=== PATIENT | male | born 1945 | race Caucasian/White ===

== ENCOUNTER 2016-10-17 05:55 | Inpatient (IN) | payer MEDICARE, OTHER ==
[~2016-10-17] VITALS: Ht 177.8 cm; Wt 175.5 kg
[~2016-10-17 05:55] MED LIST: ACET325T53 PO; ALLA266C2 TP; AMIO200T PO; AMLO10TA2 PO; ASCO500T9 PO; ATOR10TA PO; Blood Sugar Diagnostic VI; DEXT50DI8 IV; DIPH25CA49 PO; Doxycycline Hyclate PO; GABA400C PO; GLIM4TAB PO; Gel Dressing TP; HYDR-3326 PO; HYDR28.32 TP; Hydralazine Hcl PO; INSU100V28 SQ; LACT1CAP72 PO; MAG30ORA PO; MULT-24 PO; Nitroglycerin TP; Ondansetron Hcl/Pf IV; PANT40TA2 PO; RIVA10TA PO; Valsartan PO
[2016-10-17] MEDS ORDERED: FUROSEMIDE 40 MG/4 ML VIAL IV ONE (06:00)
[2016-10-17] MEDS ORDERED: NITROGLYCERIN PACKET 1 GM PACKET TD ONE (06:00)
[2016-10-17] MEDS ORDERED: FUROSEMIDE 40 MG/4 ML VIAL ONE (06:05)
[2016-10-17] MEDS ORDERED: NITROGLYCERIN PACKET 1 GM PACKET ONE (06:06)
--- NOTE | 2016-10-17 06:20 | NUR ---
RETIREMENT ACTUARY IS AT THE BEDSIDE FOR BLOOD DRAW.
[2016-10-17] MEDS ORDERED: SITA50TA PO (06:25)
[2016-10-17] MEDS ORDERED: INSU100V7 SQ (06:25)
[2016-10-17] MEDS ORDERED: MULT-1168 PO (06:25)
[2016-10-17] MEDS ORDERED: GUAI-959 PO (06:25)
[2016-10-17] MEDS ORDERED: NA P133E RC (06:25)
[2016-10-17] MEDS ORDERED: WHEA1POW6 PO (06:25)
[2016-10-17] MEDS ORDERED: FERR-58 PO (06:25)
[2016-10-17] MEDS ORDERED: ARGI1POW13 PO (06:25)
[2016-10-17] MEDS ORDERED: IBUP-1481 PO (06:25)
[2016-10-17] MEDS ORDERED: ONDA-25 PO (06:25)
[2016-10-17] MEDS ORDERED: ZINC220C8 PO (06:25)
[2016-10-17] MEDS ORDERED: BISA10SU8 RC (06:25)
[2016-10-17] MEDS ORDERED: HYDR8TAB18 PO (06:25)
--- NOTE | 2016-10-17 06:25 | NUR ---
20G IV STARTED IN RUE.
--- NOTE | 2016-10-17 06:25 | NUR ---
CXR IN PROGRESS AT THE BEDSIDE.
--- NOTE | 2016-10-17 07:01 | NUR ---
BOX CAR LOADER IS AT THE BEDSIDE FOR DRAW. 1ST ATTEMPT WAS UNSUCCESSFUL.
--- NOTE | 2016-10-17 07:10 | NUR ---
REPORT GIVEN TO ANGEL ROCK FOR RONAN.
[2016-10-17 07:23] LABS: BASOPHILS # (AUTO) 0.1 /CMM (0.0-0.2); BASOPHILS % (AUTO) 0.9 % (0.0-2.0); EOSINOPHILS # (AUTO) 0.6 /CMM (0.0-0.7); EOSINOPHILS % (AUTO) 4.6 % (0.0-6.0); HEMATOCRIT 27 % (39-51); HEMOGLOBIN 8.2 g/dL (13.5-17.5); LYMPHOCYTES # (AUTO) 0.9 /CMM (0.8-4.8); LYMPHOCYTES % (AUTO) 6.7 % (20.0-44.0); MEAN CORPUSCULAR HEMOGLOBIN 24 PG (26.0-33.0); MEAN CORPUSCULAR HGB CONC 31 g/dl (31.0-36.0); MEAN CORPUSCULAR VOLUME 79 fL (80-96); MONOCYTES # (AUTO) 0.7 /CMM (0.1-1.30); NEUTROPHILS # (AUTO) 11.6 /CMM (1.8-8.9); NEUTROPHILS % (AUTO) 82.8 % (43.0-81.0); PLATELET COUNT (AUTO) 329 /CMM (150-450); RDW COEFFICIENT OF VARIATION 18.8 (11.5-15.0); RED BLOOD CELL COUNT(AUTO) 3.43 MIL/uL (4.5-6.0)
--- NOTE | 2016-10-17 07:24 | NUR ---
PATIENT ON BED, ASLEEP. VSS
[2016-10-17 07:34] LABS: CALCIUM, SERUM 8.3 mg/dL (8.5-10.1); CARBON DIOXIDE 26 mmol/L (21-32); CHLORIDE 105 mmol/L (98-107); CREATININE 2.4 mg/dL (0.6-1.3); GFR 27 mL/min (>60); GLUCOSE 204 mg/dL (74-106); POTASSIUM 5.1 mmol/L (3.5-5.1); SODIUM SERUM 140 mmol/L (136-145); UREA NITROGEN, BLOOD 36 mg/dL (7-18)
[2016-10-17 07:36] LABS: INR 1.24 (0.87-1.13); PROTHROMBIN TIME 13.4 SECS (9.5-12.7)
--- NOTE | 2016-10-17 07:37 | NUR ---
PAGED DR MACHADO FOR ADMISSION
[2016-10-17 07:41] LABS: TROPONIN I < 0.017 ng/mL (0.00-0.056)
[2016-10-17 07:45] LABS: LACTIC ACID 0.9 mmol/L (0.4-2.0)
[2016-10-17 07:46] LABS: ALANINE AMINOTRANSFERASE 18 U/L (12-78); ALBUMIN 2.4 g/dL (3.4-5.0); ALKALINE PHOSPHATASE 86 U/L (46-116); ASPARTATE AMINOTRANSFERASE 20 U/L (15-37); B-TYPE NATRIURETIC PEPTIDE 2182 PG/ML (0-125); BILIRUBIN,DIRECT 0.2 mg/dL (0.0-0.2); BILIRUBIN,TOTAL 0.4 mg/dL (0.2-1.0); TOTAL PROTEIN, SERUM 7.4 g/dL (6.4-8.2)
[2016-10-17] MEDS ORDERED: VALS80TA2 PO (07:52)
[2016-10-17] MEDS ORDERED: ASCO500T9 PO (07:52)
[2016-10-17] MEDS ORDERED: ACET-868 PO ×2 (07:52)
[2016-10-17] MEDS ORDERED: RIVA10TA PO (07:52)
[2016-10-17] MEDS ORDERED: GLIM4TAB2 PO (07:52)
[2016-10-17] MEDS ORDERED: HYDR-4076 PO (07:52)
[2016-10-17] MEDS ORDERED: ATOR10TA PO (07:52)
[2016-10-17] MEDS ORDERED: MAGN400O6 PO (07:52)
[2016-10-17] MEDS ORDERED: BLOO-697 IN (07:52)
[2016-10-17] MEDS ORDERED: INSU100V3 SQ (07:52)
[2016-10-17] MEDS ORDERED: AMIO200T2 PO (07:52)
[2016-10-17] MEDS ORDERED: NITR1OIN2 TD (07:52)
[2016-10-17] MEDS ORDERED: AMLO10TA2 PO (07:52)
[2016-10-17] MEDS ORDERED: PANT40TA4 PO (07:52)
[2016-10-17] MEDS ORDERED: GABA-536 PO (07:52)
--- NOTE | 2016-10-17 07:57 | NUR ---
KESHA CALLED -- ITS DERDERIAN
--- NOTE | 2016-10-17 08:45 | NUR ---
SCRUM PROJECT MANAGERCRIMINAL ATTORNEY NOTE PATIENT ADMITTED FROM EMERGENCY ROOM. REPORT RECEIVED BY ANGEL HORVATH. PATIENT IS ALERT AND ORIENTED x2-3. PERIODS OF CONFUSION. RIGHT UPPER ARM IV INTACT AND PATENT. NO REDNESS OR SWELLING NOTED. ARRIVED ON FLOOR IN [facility]. ON OXYGEN VIA NASAL CANNULA AT 4L/MIN. NO PAIN AT THIS TIME. NO SHORTNESS OF BREATH PER PATIENT NO DISTRESS NOTED. CALL LIGHT WITHIN REACH AT ALL TIMES. SAFETY MEASURES IMPLEMENTED. PATIENT CAME FROM [facility]. WILL CONTINUE TO MONITOR
[2016-10-17 09:00] VITALS: BP 114/41
[2016-10-17] MEDS ORDERED: ACETAMINOPHEN 325 MG TABLET PO PRN (11:00)
[2016-10-17] MEDS ORDERED: Z GUARD REMEDY 2 OZ OINT TP PRN (11:00)
[2016-10-17] MEDS ORDERED: LEVOFLOXACIN 750 MG /D5W 150ML 750 MG in PREMIX 1 EA IV SCH ×3 (11:00→15:00)
[2016-10-17] MEDS ORDERED: NITROGLYCERIN PACKET 1 GM PACKET TD SCH (11:00)
[2016-10-17] MEDS ORDERED: Medication Not On Formulary EA (Arginine/Ascorbate Sod/Vite AC (Arginaid Powder) 1 EACH) PO SCH (11:00)
[2016-10-17] MEDS ORDERED: SITAGLIPTIN PHOSPHATE 50 MG TABLET PO SCH (11:00)
[2016-10-17] MEDS ORDERED: IBUPROFEN 400 MG TABLET PO PRN (11:00)
[2016-10-17] MEDS ORDERED: ONDANSETRON HCL/PF 4 MG/2 ML VIAL IVP PRN (11:00)
[2016-10-17] MEDS ORDERED: MAG HYDROX/AL HYDROX/SIMETH 30 ML UDC PO PRN (11:00)
[2016-10-17] MEDS ORDERED: BISACODYL SUPP (10 MG) 10 MG/SUPP.RECT SUPP.RECT RC PRN (11:00)
[2016-10-17] MEDS ORDERED: MAGNESIUM HYDROXIDE 30 ML UDC PO PRN (11:00)
--- NOTE | 2016-10-17 11:20 | NUR ---
MS RN NOTE SOME MEDICATIONS NOT AVAILABLE IN [facility] OR IN CASSETTE. PHARMACY MADE AWARE. AWAITING MEDICATION.
[2016-10-17] MEDS: BLOOD SUGAR DIAGNOSTIC 1 EACH STRIP IN SCH ×2 (11:30→17:57)
[2016-10-17] MEDS ORDERED: HYDROMORPHONE HCL 2 MG TABLET PO PRN (11:30)
[2016-10-17] MEDS ORDERED: ONDANSETRON 4 MG TAB.RAPDIS PO PRN (11:30)
[2016-10-17] MEDS: ASCORBIC ACID 500 MG TABLET PO SCH (11:43)
[2016-10-17] MEDS: FERROUS SULFATE (325 MG) 325 MG/TAB TABLET PO SCH (11:43)
[2016-10-17] MEDS: GABAPENTIN 400 MG CAPSULE PO SCH (11:43)
[2016-10-17] MEDS: GLIMEPIRIDE 4 MG TABLET PO SCH (11:44)
[2016-10-17] MEDS: AMLODIPINE BESYLATE 10 MG TABLET PO SCH (11:45)
[2016-10-17] MEDS: VALSARTAN 80 MG TABLET PO SCH (11:45)
[2016-10-17] MEDS: ZINC SULFATE 220 MG CAPSULE PO SCH (11:45)
[2016-10-17] MEDS: AMIODARONE HCL 200 MG TABLET PO SCH (11:46)
[2016-10-17] MEDS ORDERED: FEE PK DOSING 1 MIN EA MC ONE (12:14)
[2016-10-17] MEDS ORDERED: hydrALAZINE HCL 25 MG TABLET PO PRN (13:00)
--- NOTE | 2016-10-17 13:00 | NUR ---
MASH PROCESSING OPERATOR NOTE RECEIVED ABG RESULTS. CALLED MD BLUM) FOR RESULTS. LUIS FROM RESPIRATORY INFORMED DR. SNOW ABOUT PATIENT AND RESULTS. TITRATED OXYGEN DOWN TO 2L/MIN VIA NASAL CANNULA. WILL CONTINUE TO MONITOR PATIENT.
[2016-10-17 13:02] LABS: ABG BASE EXCESS -2.4 mmol/L; ABG OXYGEN SATURATION 94.4 % (92.0-98.5); ABG PCO2 60.8 mmHg (35.0-45.0); ABG PH 7.237 (7.350-7.450); ABG PO2 77.6 mmHg (75.0-100.0); ABG TOTAL HEMOGLOBIN 8.7 G/dL (13.5-18.0); AaDO2 108.6 mmHg; COHb 1.4 % (0.5-1.5); MetHb 0.9 % (0.0-1.5); O2Hb 92.2 % (94.0-97.0); SITE, ABG Right Radial; VENT MODE, BG NASAL CANNULA
--- NOTE | 2016-10-17 13:30 | NUR ---
PLAN EXAMINER NOTE PATIENT IS NOW ON STRICT INTAKE AND OUTPUT. WILL CONTINUE TO MONITOR AND ENDORSE TO GENETICS PHYSICIAN FOR RONAN
[2016-10-17] MEDS ORDERED: IV NS 0.9% 250 ML IV ONE (14:06)
[2016-10-17] MEDS ORDERED: SECONDARY IV SET 1 EA INFUS.SET MC ONE ×2 (14:06→16:15)
[2016-10-17] MEDS ORDERED: IV SET PRIMARY PUMP SET 1 EA INFUS.SET MC ONE (14:06)
[2016-10-17] MEDS: VANCOMYCIN 0.75 GM in IV D5W 250 ML IV SCH (14:21)
[2016-10-17] MEDS: BUMETANIDE INJ 0.25 MG/ML VIAL IV SCH ×2 (14:40→22:01)
[2016-10-17] MEDS: IPRATROPIUM NEB FS 0.5 MG/2.5 ML AMPUL.NEB NEB SCH ×2 (15:12→20:17)
[2016-10-17] MEDS: ALBUTEROL HALF STRENGTH 1.25 MG/3 ML VIAL.NEB NEB SCH ×2 (15:12→20:17)
[2016-10-17 15:32] LABS: ABG BASE EXCESS -3.2 mmol/L; ABG OXYGEN SATURATION 96.6 % (92.0-98.5); ABG PCO2 38.9 mmHg (35.0-45.0); ABG PH 7.367 (7.350-7.450); ABG PO2 88.6 mmHg (75.0-100.0); ABG TOTAL HEMOGLOBIN 8.3 G/dL (13.5-18.0); AaDO2 65.1 mmHg; COHb 1.2 % (0.5-1.5); MetHb 0.8 % (0.0-1.5); O2Hb 94.7 % (94.0-97.0); SITE, ABG Right Femoral; VENT MODE, BG NASAL CANNULA
[2016-10-17] MEDS: LEVOFLOXACIN 750 MG /D5W 150ML 750 MG in PREMIX 1 EA IV SCH (16:47)
[2016-10-17] MEDS: RIVAROXABAN 10 MG TABLET PO SCH (16:48)
[2016-10-17] MEDS: LACTOBACILLUS RHAMNOSUS GG 1 EACH CAP.SPRINK PO SCH (16:49)
[2016-10-17] MEDS: BENEFIBER 4 GM 1 EA PACKET PO SCH ×2 (16:50→16:53)
[2016-10-17] MEDS: NITROGLYCERIN 30 GM TUBE TP SCH (16:50)
[2016-10-17] MEDS: diphenhydrAMINE HCL 25 MG CAPSULE PO PRN (18:40)
--- NOTE | 2016-10-17 18:56 | NUR ---
CONTRACTS SPECIALIST CLOSING NOTE PATIENT IS AWAKE IN BED LOCKED IN LOWEST POSITION WITH SIDERAILS UP x2. NO PAIN AT THIS TIME. NO SOB, CHEST PAIN OR DISCOMFORT NOTED. ALL DUE MEDICATIONS GIVEN ORDERED. ALL NURSING CARE NEEDS ATTENDED TO. SAFETY MEASURES IMPLEMENTED AT ALL TIMES. CALL LIGHT WITHIN REACH AT ALL TIMES. IV REMOVED FROM RIGHT UPPER ARM DUE TO SWELLING AND INFILTRATION AND IRRITATION FROM ALLERGY TO PLASTIC TAPE. ALLERGY DOCUMENTED. MIDLINE INSERTION ORDER INPUT. ON OXYGEN VIA NASAL CANNULA 2L/MIN. TELE MONITOR-A FIB WITH HEART RATE AT 72. WILL ENDORSE TO CULTURE MEDIA LABORATORY ASSISTANT NURSE FOR RONAN Addendum: 10/17/16 at 1903 by ARLET MOSS RN ON STRICT INTAKE AND OUTPUT MONITORING
--- NOTE | 2016-10-17 19:15 | NUR ---
RN INITIAL NOTES RECEIVED PATIENT IN BED, AWAKE AND ALERT. PATIENT DENIES ANY PAIN AND DISCOMFORT AT THIS TIME. PATIENT WITH NO ACUTE RESPIRATORY DISTRESS. ON 2LPM OF O2 VIA NC, RESPIRATION IS EVEN AND UNLABORED WITH NO DISTRESS. MIRNA, MIDLINE NURSE, REPORTED THAT A MIDLINE HAS BEEN SUCCESSFULLY INSERTED ON PATIENT'S CIRA, G18, GOOD BLOOD RETURN NOTED. PATIENT REPORTS RELIEF FROM ITCHINESS ON ARM. 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 PATIENT REFUSING DVT PUMPS, PUMP AND SLEEVE LEFT AVAILABLE AT BEDSIDE, WILL TRY TO CONVINCE PATIENT AGAIN. PATIENT ALSO WITH ORDER FOR STRICT I&O, PATIENT STRONGLY REFUSES F/C TO INSERTED, PATIENT REPORTS THAT HE HAS SOAKED HIS BED RIGHT NOW AND WILL NEED TO BE CHANGED LATER ON. ENCOURAGED PATIENT TO USE URINAL TOLERATED AND CALL NURSES FOR HELP WITH USE OF URINAL. PATIENT'S NEEDS ANTICIPATED AND MET. SAFETY AND COMFORT ENSURED. BED IN LOW AND LOCKED POSITION. CALL LIGHT IN REACH. WILL CONTINUE TO MONITOR PATIENT. Addendum: 10/18/16 at 0413 by ART COSBY RN REASSESSED PATIENT, NOTED WITH BLE EDEMA AND HX OF CELLULITIS TO LEGS. DVT PUMP IS CONTRAINDICATED AT THIS TIME.
[2016-10-17 20:00] VITALS: BP 130/43
[2016-10-17] MEDS ORDERED: DEXTROSE 50%-WATER 50 ML DISP.SYRIN IV PRN (20:30)
--- NOTE | 2016-10-17 21:30 | NUR ---
RN NOTES PATIENT REPOSITIONED AND PULLED UP IN BED. SAFETY AND COMFORT ENSURED. PATIENT REFUSED PM CARE TO BE RENDERED AT THIS TIME. CALL LIGHT IN REACH. ALL DUE HS MEDS GIVEN. PATIENT'S BS IS 242. INSULIN GIVEN ORDERED.
[2016-10-17] MEDS ORDERED: ZOLPIDEM TARTRATE 5 MG TABLET PO PRN (22:00)
[2016-10-17] MEDS: ATORVASTATIN 10 MG TABLET PO SCH (22:01)
[2016-10-17] MEDS: INSULIN DETEMIR 100 UNIT/ML CARTRIDGE SQ SCH (22:02)
[2016-10-17] MEDS: BLOOD SUGAR DIAGNOSTIC 1 EACH STRIP VI SCH (22:02)
[2016-10-17] MEDS: *INSULIN REGULAR(HUMULIN R)HUM 100 UNIT/ML VIAL SQ PRN (22:04)
--- NOTE | 2016-10-17 22:52 | NUR ---
RN NOTES PATIENT IN BED SLEEPING COMFORTABLY. HOB AT 45 DEGREES PER PATIENT'S TOLERANCE. PATIENT RE-OFFERED WITH BED BATH AND DIAPER CHANGE PATIENT IS NOTED TO BE SOAKING WET. PATIENT REFUSED AT THIS TIME. STATES THAT HE IS COMFORTABLE AND REQUESTED TO BE LEFT ALONE. NOTED.
[2016-10-18] VITALS (7 sets, daily range): BP systolic 105–137; BP diastolic 45–87
[2016-10-18] MEDS: VANCOMYCIN 0.75 GM in IV D5W 250 ML IV SCH ×2 (00:38→12:34)
[2016-10-18] MEDS: IPRATROPIUM NEB FS 0.5 MG/2.5 ML AMPUL.NEB NEB SCH ×4 (00:46→20:17)
[2016-10-18] MEDS: ALBUTEROL HALF STRENGTH 1.25 MG/3 ML VIAL.NEB NEB SCH ×4 (00:46→20:17)
--- NOTE | 2016-10-18 00:46 | NUR ---
RT PT REQUESTED NO TO BE WOKEN UP IF NO NECESSARY . NO SOB OR DISTRESS NOTED AT THIS TIME.
--- NOTE | 2016-10-18 02:30 | NUR ---
RN NOTES PATIENT SLEEPING COMFORTABLY. NO DISTRESS NOTED. PATIENT REMAINS ON SR WITH 1ST DEGREE AVB AND BBB WITH HR OF 64. SAFETY AND COMFORT ENSURED. CALL LIGHT IN REACH.
[2016-10-18] MEDS: diphenhydrAMINE HCL 25 MG CAPSULE PO PRN (05:25)
[2016-10-18] MEDS: HYDROCODONE/APAP 5/325MG 1 EACH TABLET PO PRN ×2 (05:25→10:59)
[2016-10-18] MEDS ORDERED: ALBUTEROL HALF STRENGTH 1.25 MG/3 ML VIAL.NEB NEB PRN (05:30)
[2016-10-18] MEDS ORDERED: IPRATROPIUM NEB FS 0.5 MG/2.5 ML AMPUL.NEB NEB PRN (05:30)
--- NOTE | 2016-10-18 05:30 | NUR ---
RN NOTES AM CARE PROVIDED TO THE PATIENT. ON STRICT I&O, HOWEVER PATIENT REFUSED F/C PLACEMENT, UNABLE TO USE URINAL AND PATIENT VOIDED FREELY VIA DIAPER. PATIENT PROVIDED WITH AM CARE, BED BATH RENDERED. PATIENT KEPT CLEAN AND DRY. PATIENT UNABLE TO LIE FLAT FOR LONG PERIODS DURING AM CARE, PROVIDED WITH REST PERIODS NEEDED. PATIENT THEN COMPLAINED FOR PAIN, MEDICATED PER PATIENT'S REQUEST. PATIENT ALSO NOTED TO BE COUGHING CONTINUOUSLY AND REQUESTED FOR BREATHING TREATMENT. DR. CHANCE ORDERED FOR PRN BREATHING TREATMENT. ORDER NOTED AND CARRIED OUT. COORDINATED WITH RT FOR THE ADMINISTRATION OF PRN BREATHING TREATMENT.
[2016-10-18 06:35] LABS: BASOPHILS # (AUTO) 0.1 /CMM (0.0-0.2); BASOPHILS % (AUTO) 0.4 % (0.0-2.0); EOSINOPHILS # (AUTO) 0.7 /CMM (0.0-0.7); EOSINOPHILS % (AUTO) 5.6 % (0.0-6.0); HEMATOCRIT 26 % (39-51); HEMOGLOBIN 7.9 g/dL (13.5-17.5); LYMPHOCYTES # (AUTO) 0.9 /CMM (0.8-4.8); LYMPHOCYTES % (AUTO) 7.6 % (20.0-44.0); MEAN CORPUSCULAR HEMOGLOBIN 24 PG (26.0-33.0); MEAN CORPUSCULAR HGB CONC 31 g/dl (31.0-36.0); MEAN CORPUSCULAR VOLUME 78 fL (80-96); MONOCYTES % (AUTO) 7.9 % (2.0-12.0); NEUTROPHILS # (AUTO) 9.7 /CMM (1.8-8.9); NEUTROPHILS % (AUTO) 78.5 % (43.0-81.0); PLATELET COUNT (AUTO) 272 /CMM (150-450); RDW COEFFICIENT OF VARIATION 18.8 (11.5-15.0); RED BLOOD CELL COUNT(AUTO) 3.29 MIL/uL (4.5-6.0); WHITE BLOOD COUNT (AUTO) 12.3 K/uL (4.3-11.0)
--- NOTE | 2016-10-18 06:47 | NUR ---
RN CLOSING NOTES PATIENT SLEEPING COMFORTABLY AT THIS TIME. REFUSED ACCUCHECK. NOT IN ANY DISTRESS. ALL DUE MEDS GIVEN ORDERED. SAFETY AND COMFORT ENSURED. BED IN LOW AND LOCKED POSITION. CALL LIGHT IN REACH. WILL ENDORSE ACCORDINGLY FOR CONTINUITY OF CARE.
[2016-10-18 06:59] LABS: ALBUMIN 2.2 g/dL (3.4-5.0); BILIRUBIN,TOTAL 0.4 mg/dL (0.2-1.0); CALCIUM, SERUM 8.4 mg/dL (8.5-10.1); CREATININE 2.6 mg/dL (0.6-1.3); MAGNESIUM 2.1 mg/dL (1.8-2.4); PHOSPHORUS 4.9 mg/dL (2.5-4.9); POTASSIUM 5.1 mmol/L (3.5-5.1); TOTAL PROTEIN, SERUM 7.2 g/dL (6.4-8.2)
--- NOTE | 2016-10-18 07:15 | NUR ---
MEDIA CLERK NOTES RECEIVED PATIENT IN BED, AWAKE. A/O X3. ON BREATHING TREATMENT GIVEN BY RT, ON OXYGEN AT 2L/MIN VIA NC, NO SOB NOTED. PATIENT IS ON STRICT I/O AND UNABLE TO VOID, REFUSING SNEED CATH INSERTION PER NIGHT RN REPORT. MIDLINE CIRA PATENT AND INTACT, FLUSHES WELL. NO C/O PAIN AT THIS TIME. CALL LIGHT WITHIN REACH. WILL CONT TO MONITOR.
[2016-10-18] MEDS: BLOOD SUGAR DIAGNOSTIC 1 EACH STRIP VI SCH ×4 (08:27→22:02)
[2016-10-18] MEDS: PANTOPRAZOLE 40 MG TABLET.DR PO SCH (08:28)
[2016-10-18] MEDS: BUMETANIDE INJ 0.25 MG/ML VIAL IV SCH ×2 (08:28→17:20)
[2016-10-18] MEDS: LACTOBACILLUS RHAMNOSUS GG 1 EACH CAP.SPRINK PO SCH ×2 (08:33→17:21)
[2016-10-18] MEDS: AMLODIPINE BESYLATE 10 MG TABLET PO SCH (08:33)
[2016-10-18] MEDS: FERROUS SULFATE (325 MG) 325 MG/TAB TABLET PO SCH (08:33)
[2016-10-18] MEDS: LINAGLIPTIN 5 MG TABLET PO SCH (08:34)
[2016-10-18] MEDS: GABAPENTIN 400 MG CAPSULE PO SCH (08:34)
[2016-10-18] MEDS: AMIODARONE HCL 200 MG TABLET PO SCH (08:34)
[2016-10-18] MEDS: GLIMEPIRIDE 4 MG TABLET PO SCH (08:35)
[2016-10-18] MEDS: ASCORBIC ACID 500 MG TABLET PO SCH (08:35)
[2016-10-18] MEDS: VALSARTAN 80 MG TABLET PO SCH (08:35)
[2016-10-18] MEDS: MULTIVITAMINS,THERAPEUTIC 1 UDTAB TABLET PO SCH (08:35)
[2016-10-18] MEDS: ZINC SULFATE 220 MG CAPSULE PO SCH (08:36)
[2016-10-18] MEDS: INSULIN REGULAR, HUMAN 100 UNIT/ML 3 ML VIAL SQ PRN ×3 (08:42→17:31)
[2016-10-18] MEDS: BENEFIBER 4 GM 1 EA PACKET PO SCH ×2 (08:52→17:33)
[2016-10-18] MEDS: NITROGLYCERIN 30 GM TUBE TP SCH ×2 (08:53→17:24)
--- NOTE | 2016-10-18 08:55 | NUR ---
BS 198MG/DL. GIVEN 3 UNITS INSULIN REGULAR SQ PER ISS COVERAGE.
[2016-10-18] MEDS ORDERED: PANTOPRAZOLE 40 MG TABLET.DR PO SCH (09:00)
[2016-10-18 09:38] LABS: IRON, SERUM 28 ug/dl (50-175); TOTAL IRON BINDING CAPACITY 258 ug/dl (250-450)
[2016-10-18 09:43] LABS: TROPONIN I < 0.017 ng/mL (0.00-0.056)
--- NOTE | 2016-10-18 10:12 | NUR ---
PATIENT IS SEEN BY DR. WETZEL TODAY, ORDERED TO INSERT SNEED CATH INSERTION. PER PATIENT HE HAS PROBLEM VOIDING.
[2016-10-18 10:23] LABS: CHOLESTEROL 78 mg/dL (<200); FERRITIN 85 ng/mL (8-388); HDL CHOLESTEROL 28 mg/dL (40-60); LDL 37 mg/dL (0-99); THYROID STIMULATING HORMONE 0.435 uIU/mL (0.358-3.74); TRIGLYCERIDES 94 mg/dL (30-150)
--- NOTE | 2016-10-18 11:43 | NUR ---
SNEED CATH INSERTED ORDERED. URINE SPECIMEN COLLECTED, SEND TO LAB ORDERED.
[2016-10-18] MEDS: hydrALAZINE HCL 50 MG TABLET PO SCH ×2 (12:58→17:21)
[2016-10-18 13:12] LABS: APPEARANCE,URINE CLEAR (CLEAR); BILIRUBIN,URINE NEGATIVE (NEGATIVE); BLOOD, URINE NEGATIVE Ery/uL (NEGATIVE); COLOR,URINE YELLOW (YELLOW); KETONES,URINE NEGATIVE (NEGATIVE); LEUKOCYTE ESTERASE ,URINE NEGATIVE (NEGATIVE); NITRITE, URINE NEGATIVE (NEGATIVE); PH,URINE 5.5 (5.0-8.0); PROTEIN,URINE NEGATIVE (NEGATIVE); UGLUCOSE NEGATIVE (NEGATIVE); UROBILINOGEN,URINE 0.2 EU/dL (0.2)
[2016-10-18 13:19] LABS: CREATININE, URINE 33.8 MG/DL (30.0-125.0); URINE TOTAL PROTEIN 14.3 mg/dL (0-11.9)
[2016-10-18 13:52] LABS: EOSINOPHIL,URINE None Seen
[2016-10-18] MEDS: GUAIFENESIN/D-METHORPHAN HB 5 ML UDC PO PRN (15:35)
[2016-10-18] MEDS ORDERED: LACTOBACILLUS RHAMNOSUS GG 1 EACH CAP.SPRINK PO SCH (17:00)
[2016-10-18] MEDS: RIVAROXABAN 10 MG TABLET PO SCH (17:22)
--- NOTE | 2016-10-18 17:35 | NUR ---
BS 232MG/DL. GIVEN 6 UNITS INSULIN REGULAR SQ PER ISS COVERAGE.
--- NOTE | 2016-10-18 18:51 | NUR ---
MS RN CLOSING NOTES PATIENT IN BED, A/O X3. PATIENT IS SEEN BY DR. HOLDEN TODAY, ORDERED HYDROGEL FOR WOUND TREATMENT, NOTED AND ACKNOWLEDGED. PATIENT APPEARS COMFORTABLE IN BED, BLOOD SUGAR MONITORED. ON ANTIBIOTIC WITH NO ADVERSE REACTION NOTED, AFEBRILE. XRAY CHEST RESULT REVIEWED BY DR. BLISS WITH NO NEW ORDERS AT THIS TIME. SNEED CATH INTACT DRAINING TO GRAVITY, URINE CLEAN AND YELLOW. NO C/O PAIN AT THIS TIME. CALL LIGHT WITHIN REACH. LAB IN AM. WILL ENDORSE TO MACHINE OPERATOR RN FOR CONTINUITY OF CARE.
[2016-10-18] MEDS: HYDROGEL DRESSING 90 GM TUBE TP SCH (19:00)
--- NOTE | 2016-10-18 19:15 | NUR ---
RN NOTES RECEIVED PT AWAKE, ALERT AND ORIENTED X3, NO SOB, NOT IN DISTRESS, ON O2 INHALATION AT 2LPM VIA NC TOLERATED WELL. LUNG SOUNDS DIMINISHED WITH SCATTERED RONCHI UPON AUSCULTATION. PT DENIES ANY PAIN AND DISCOMFORT AT THIS TIME. MID LINE ON RIGHT UPPER ARM PATENT AND INTACT. BOTH LOWER LEG WITH DRESSING INTACT, DRY AND CLEAN AND KEPT ELEVATED. SNEED CATH INTACT WITH CLEAR URINE OUTPUT NOTED. KEPT COMFORTABLE AND ATTENDED. WILL TURN AND REPOSITION SCHEDULED. WILL CONTINUE TO MONITOR PT.
[2016-10-18] MEDS: ATORVASTATIN 10 MG TABLET PO SCH (22:00)
[2016-10-18] MEDS: INSULIN DETEMIR 100 UNIT/ML CARTRIDGE SQ SCH (22:01)
--- NOTE | 2016-10-18 22:02 | NUR ---
RN NOTES BLOOD SUGAR CHECKED 177 MG/DL, 3 UNITS REGULAR INSULIN GIVEN SUBCUTANEOUSLY.
[2016-10-18] MEDS: *INSULIN REGULAR(HUMULIN R)HUM 100 UNIT/ML VIAL SQ PRN (22:04)
[2016-10-19] MEDS: VANCOMYCIN 0.75 GM in IV D5W 250 ML IV SCH ×2 (01:36→13:44)
[2016-10-19] MEDS: ALBUTEROL HALF STRENGTH 1.25 MG/3 ML VIAL.NEB NEB SCH ×4 (02:07→20:02)
[2016-10-19] MEDS: IPRATROPIUM NEB FS 0.5 MG/2.5 ML AMPUL.NEB NEB SCH ×4 (02:07→20:02)
[2016-10-19] MEDS: BLOOD SUGAR DIAGNOSTIC 1 EACH STRIP VI SCH ×4 (06:40→22:12)
[2016-10-19] MEDS: INSULIN REGULAR, HUMAN 100 UNIT/ML 3 ML VIAL SQ PRN ×3 (06:42→17:30)
--- NOTE | 2016-10-19 06:42 | NUR ---
RN NOTES BLOOD SUGAR CHECKED 132 MG/DL, 2 UNITS REGULAR INSULIN GIVEN SUBCU. PER SLIDING SCALE.
[2016-10-19] MEDS: PANTOPRAZOLE 40 MG TABLET.DR PO SCH (06:43)
--- NOTE | 2016-10-19 07:01 | NUR ---
RN NOTES PT ASLEEP , HOB ELEVATED WITH O2 INHALATION AT 2LPM VIA NC AND TOLERATED WELL. BREATHING REGULAR AND UNLABORED, NO SIGNS OF DISTRESS AND DISCOMFORT NOTED. VITAL SIGNS STABLE, AFEBRILE,.NO COMPLAIN OF PAIN , NO EPISODE OF NAUSEA AND VOMITING. PT COUGH AT TIMES AND ABLE TO SPIT OUT THICK GREENISH, SOMETIMES BLOOD TINGED SECRETIONS. ALL DUE MEDS GIVEN. KEPT COMFORTABLE AND ATTENDED. WILL ENDORSE TO MORNING RN FOR CONTINUITY OF CARE.
--- NOTE | 2016-10-19 07:20 | NUR ---
MS RN NOTES RECEIVED PATIENT IN BED, AWAKE. A/O X3, NOT IN DISTRESS. ON OXYGEN AT 2L/MIN VIA NC. NO SOB, EPISODE OF COUGH WITH GREENISH COLOR SPUTUM. CIRA MIDLINE INTACT, SNEED CATH IN PLACE. CALL LIGHT WITHIN REACH. WILL CONT OT MONITOR
[2016-10-19 07:30] LABS: BASOPHILS # (AUTO) 0.1 /CMM (0.0-0.2); BASOPHILS % (AUTO) 0.9 % (0.0-2.0); EOSINOPHILS # (AUTO) 0.7 /CMM (0.0-0.7); HEMATOCRIT 24 % (39-51); HEMOGLOBIN 7.5 g/dL (13.5-17.5); LYMPHOCYTES # (AUTO) 0.7 /CMM (0.8-4.8); LYMPHOCYTES % (AUTO) 6.5 % (20.0-44.0); MEAN CORPUSCULAR HEMOGLOBIN 25 PG (26.0-33.0); MEAN CORPUSCULAR HGB CONC 32 g/dl (31.0-36.0); MEAN CORPUSCULAR VOLUME 78 fL (80-96); MONOCYTES # (AUTO) 0.8 /CMM (0.1-1.30); MONOCYTES % (AUTO) 7.2 % (2.0-12.0); NEUTROPHILS # (AUTO) 8.4 /CMM (1.8-8.9); NEUTROPHILS % (AUTO) 78.4 % (43.0-81.0); PLATELET COUNT (AUTO) 258 /CMM (150-450); RDW COEFFICIENT OF VARIATION 18.5 (11.5-15.0); RED BLOOD CELL COUNT(AUTO) 3.05 MIL/uL (4.5-6.0); WHITE BLOOD COUNT (AUTO) 10.7 K/uL (4.3-11.0)
[2016-10-19 07:58] LABS: ALBUMIN 2.1 g/dL (3.4-5.0); BILIRUBIN,TOTAL 0.3 mg/dL (0.2-1.0); CALCIUM, SERUM 8.3 mg/dL (8.5-10.1); CREATININE 2.3 mg/dL (0.6-1.3); MAGNESIUM 1.9 mg/dL (1.8-2.4); PHOSPHORUS 4.1 mg/dL (2.5-4.9); POTASSIUM 4.8 mmol/L (3.5-5.1); TOTAL PROTEIN, SERUM 6.9 g/dL (6.4-8.2)
[2016-10-19 08:00] VITALS: BP 125/52
[2016-10-19 08:09] VITALS: BP 125/52
[2016-10-19] MEDS: GUAIFENESIN/D-METHORPHAN HB 5 ML UDC PO PRN ×2 (08:09→18:16)
[2016-10-19] MEDS: BUMETANIDE INJ 0.25 MG/ML VIAL IV SCH (08:09)
[2016-10-19] MEDS: AMLODIPINE BESYLATE 10 MG TABLET PO SCH (08:15)
[2016-10-19] MEDS: AMIODARONE HCL 200 MG TABLET PO SCH (08:16)
[2016-10-19] MEDS: hydrALAZINE HCL 50 MG TABLET PO SCH ×3 (08:16→17:40)
[2016-10-19] MEDS: GABAPENTIN 400 MG CAPSULE PO SCH (08:17)
[2016-10-19] MEDS: LACTOBACILLUS RHAMNOSUS GG 1 EACH CAP.SPRINK PO SCH ×2 (08:17→17:40)
[2016-10-19] MEDS: MULTIVITAMINS,THERAPEUTIC 1 UDTAB TABLET PO SCH (08:19)
[2016-10-19] MEDS: ASCORBIC ACID 500 MG TABLET PO SCH (08:19)
[2016-10-19] MEDS: ZINC SULFATE 220 MG CAPSULE PO SCH (08:19)
[2016-10-19] MEDS: FERROUS SULFATE (325 MG) 325 MG/TAB TABLET PO SCH (08:19)
[2016-10-19] MEDS: GLIMEPIRIDE 4 MG TABLET PO SCH (08:19)
[2016-10-19] MEDS: LINAGLIPTIN 5 MG TABLET PO SCH (08:20)
[2016-10-19] MEDS: HYDROCODONE/APAP 5/325MG 1 EACH TABLET PO PRN ×2 (08:43→15:44)
[2016-10-19] MEDS: BENEFIBER 4 GM 1 EA PACKET PO SCH ×2 (08:43→17:30)
[2016-10-19] MEDS: NITROGLYCERIN 30 GM TUBE TP SCH ×2 (08:44→17:22)
--- NOTE | 2016-10-19 09:44 | NUR ---
LOW HGB 7.[address] CALDWELL WITH NO NEW ORDERS AT THIS TIME.
[2016-10-19] MEDS ORDERED: BUMETANIDE INJ 8 MG in IV NS 0.9% 48 ML IV ONE (10:00)
[2016-10-19] MEDS ORDERED: SECONDARY IV SET 1 EA INFUS.SET MC ONE ×2 (10:06→16:00)
[2016-10-19] MEDS: HYDROGEL DRESSING 90 GM TUBE TP SCH (10:07)
--- NOTE | 2016-10-19 11:23 | NUR ---
PATIENT CURRENTLY ON BUMEX 2MG IV BID. DR. WETZEL/CARDIO ORDERED BUMEX 1 MG IN IV 0.9% INFUSION. PER PHARMACY CLARIFIED ORDERS TO DR. WETZEL, AND SPOKE TO DR. VICKERS ORDERED TO DC BUMEX 1MG IVP BID NOTED AND ACKNOWLEDGED. Addendum: 10/19/16 at 1129 by CA PITT RN CLARIFICATION OF ABOVE NOTES DC BUMEX 2MG IVP BID
--- NOTE | 2016-10-19 12:05 | NUR ---
INSULIN REGULAR 2 UNITS ISS COVERAGE NON ADMINISTERED, BS 140MG/DL. LUNCH IS SERVED, PER PATIENT HE DOESN'T HAVE APPETITE TO EAT.
[2016-10-19] MEDS ORDERED: IV SET PRIMARY PUMP SET 1 EA INFUS.SET MC ONE (13:44)
[2016-10-19 16:00] VITALS: BP 127/53
[2016-10-19] MEDS: SOD FERRIC GLUC 125 MG in IV NS 0.9% 100 ML IV SCH (16:02)
[2016-10-19 16:56] VITALS: BP 127/53
[2016-10-19] MEDS: LEVOFLOXACIN 750 MG /D5W 150ML 750 MG in PREMIX 1 EA IV SCH (17:24)
[2016-10-19] MEDS: RIVAROXABAN 10 MG TABLET PO SCH (17:40)
--- NOTE | 2016-10-19 17:44 | NUR ---
BS 179MG/DL. GIVEN 3 UNITS INSULIN REGULAR SQ PER ISS COVERAGE.
--- NOTE | 2016-10-19 18:41 | NUR ---
MS RN CLOSING NOTES PATIENT IN BED, V/S REMAINS STABLE. NO S/S OF HYPO/HYPERGLYCEMIA. ON ANTIBIOTIC WITH NO ADVERSE REACTION NOTED, AFEBRILE. FERRLECIT FIRST BAG STARTED TODAY. CIRA MIDLINE REMAINS PATENT AND INTACT. WITH EPISODE OF COUGHING, MEDICATED WITH ROBITUSSIN COUGH LIQUIDS WITH HELP. PATIENT HAD BOWEL MOVEMENT TODAY, MOD AMT. NO C/O PAIN AT THIS TIME. CALL LIGHT WITHIN REACH. WILL ENDORSE TO MULTI CARE TECHNICIAN RN FOR CONTINUITY OF CARE.
--- NOTE | 2016-10-19 19:15 | NUR ---
RN NOTES RECEIVED PT AWAKE, ALERT AND ORIENTED X3, NO SOB, NOT IN DISTRESS, ON O2 INHALATION AT 2LPM VIA NC TOLERATED WELL. LUNG SOUNDS DIMINISHED WITH SCATTERED RONCHI UPON AUSCULTATION. PT DENIES ANY PAIN AND DISCOMFORT AT THIS TIME. PT IS COUGHING AND ABLE TO SPIT OUT GREENISH , THICK SECRETIONS. MID LINE ON RIGHT UPPER ARM PATENT AND INTACT. BOTH LOWER LEG WITH DRESSING INTACT, DRY AND CLEAN AND KEPT ELEVATED. SNEED CATH INTACT WITH CLEAR URINE OUTPUT NOTED. KEPT COMFORTABLE AND ATTENDED. WILL TURN AND REPOSITION SCHEDULED. WILL CONTINUE TO MONITOR PT.
[2016-10-19 20:00] VITALS: BP 136/51
[2016-10-19 22:00] VITALS: BP 136/51
[2016-10-19] MEDS: ATORVASTATIN 10 MG TABLET PO SCH (22:13)
[2016-10-19] MEDS: INSULIN DETEMIR 100 UNIT/ML CARTRIDGE SQ SCH (22:14)
[2016-10-20] VITALS (8 sets, daily range): BP systolic 114–147; BP diastolic 45–57
[2016-10-20] MEDS: ALBUTEROL HALF STRENGTH 1.25 MG/3 ML VIAL.NEB NEB SCH ×4 (01:04→20:17)
[2016-10-20] MEDS: IPRATROPIUM NEB FS 0.5 MG/2.5 ML AMPUL.NEB NEB SCH ×4 (01:04→20:17)
[2016-10-20] MEDS: VANCOMYCIN 0.75 GM in IV D5W 250 ML IV SCH ×2 (01:16→12:21)
[2016-10-20] MEDS ORDERED: SECONDARY IV SET 1 EA INFUS.SET MC ONE (01:16)
[2016-10-20] MEDS: BLOOD SUGAR DIAGNOSTIC 1 EACH STRIP VI SCH ×4 (06:27→21:55)
--- NOTE | 2016-10-20 06:27 | NUR ---
RN NOTES BLOOD SUGAR CHECKED 83MG/DL, NO INSULIN COVERAGE PER SLIDING SCALE. PT TAKE A CUP OF APPLE JUICE. WILL MONITOR PT.
--- NOTE | 2016-10-20 06:41 | NUR ---
RN NOTES PT ASLEEP , HOB ELEVATED WITH O2 INHALATION AT 2LPM VIA NC AND TOLERATED WELL. NO SIGNS OF DISTRESS AND DISCOMFORT NOTED. VITAL SIGNS STABLE, AFEBRILE,NO COMPLAIN OF PAIN , NO EPISODE OF NAUSEA AND VOMITING. PT COUGH AT TIMES AND ABLE TO SPIT OUT THICK GREENISH, SOMETIMES BLOOD TINGED SECRETIONS. SKIN CARE AND WOUND CARE DONE. TURNED AND REPOSITION Q2H. ALL DUE MEDS GIVEN. KEPT COMFORTABLE AND ATTENDED. WILL ENDORSE TO MORNING RN FOR CONTINUITY OF CARE.
[2016-10-20 07:03] LABS: BASOPHILS # (AUTO) 0.1 /CMM (0.0-0.2); BASOPHILS % (AUTO) 0.7 % (0.0-2.0); EOSINOPHILS # (AUTO) 0.8 /CMM (0.0-0.7); EOSINOPHILS % (AUTO) 6.6 % (0.0-6.0); HEMATOCRIT 23 % (39-51); HEMOGLOBIN 7.3 g/dL (13.5-17.5); LYMPHOCYTES # (AUTO) 0.6 /CMM (0.8-4.8); LYMPHOCYTES % (AUTO) 5.4 % (20.0-44.0); MEAN CORPUSCULAR HEMOGLOBIN 24 PG (26.0-33.0); MEAN CORPUSCULAR HGB CONC 31 g/dl (31.0-36.0); MEAN CORPUSCULAR VOLUME 77 fL (80-96); MONOCYTES # (AUTO) 0.8 /CMM (0.1-1.30); MONOCYTES % (AUTO) 7.1 % (2.0-12.0); NEUTROPHILS # (AUTO) 9.3 /CMM (1.8-8.9); NEUTROPHILS % (AUTO) 80.2 % (43.0-81.0); PLATELET COUNT (AUTO) 272 /CMM (150-450); RDW COEFFICIENT OF VARIATION 18.7 (11.5-15.0); RED BLOOD CELL COUNT(AUTO) 3.04 MIL/uL (4.5-6.0); WHITE BLOOD COUNT (AUTO) 11.5 K/uL (4.3-11.0)
[2016-10-20 07:09] LABS: ALBUMIN 2.1 g/dL (3.4-5.0); BILIRUBIN,TOTAL 0.3 mg/dL (0.2-1.0); CALCIUM, SERUM 8.2 mg/dL (8.5-10.1); CREATININE 2.2 mg/dL (0.6-1.3); MAGNESIUM 1.7 mg/dL (1.8-2.4); PHOSPHORUS 3.5 mg/dL (2.5-4.9); POTASSIUM 4.4 mmol/L (3.5-5.1); TOTAL PROTEIN, SERUM 6.7 g/dL (6.4-8.2)
--- NOTE | 2016-10-20 07:11 | NUR ---
MS/RN OPENING NOTES RECEIVED PATIENT ASLEEP IN BED, EASILY AROUSABLE. ALERT AND ORIENTED X3, NO SIGNS OF RESPIRATORY DISTRESS NOTED. HEAD OF BED ELEVATED. VERBALLY RESPONSIVE, DENIES ANY PAIN AND DISCOMFORTS AT THIS TIME. ON O2 THERAPY VIA N/C @ 2LPM, TOLERATED WELL. LUNG SOUNDS DIMINISHED WITH SCATTERED RONCHI UPON AUSCULTATION. MID LINE ON RIGHT UPPER ARM INTACT AND PATENT. BOTH LOWER LEG WITH DRESSING INTACT, DRY AND CLEAN AND KEPT ELEVATED. SNEED CATH INTACT WITH CLEAR YELLOW URINE OUTPUT NOTED. WILL CONTINUE TO MONITOR ACCORDINGLY.
[2016-10-20] MEDS: PANTOPRAZOLE 40 MG TABLET.DR PO SCH (07:59)
[2016-10-20] MEDS: HYDROCODONE/APAP 5/325MG 1 EACH TABLET PO PRN (07:59)
--- NOTE | 2016-10-20 08:29 | NUR ---
RN NOTES SEEN BY DR WETZEL THIS MORNING WITH ORDER TO INFUSE BUMEX 80MG IV X 1 TODAY AND REPEAT CBC, CMP, MG AND PHOSPHORUS BLOOD WORKS TOMORROW, 10/20/2016. WILL CONTINUE TO MONITOR
[2016-10-20] MEDS ORDERED: BUMETANIDE INJ 8 MG in IV NS 0.9% 48 ML IV ONE (08:30)
[2016-10-20] MEDS: ZINC SULFATE 220 MG CAPSULE PO SCH (08:33)
[2016-10-20] MEDS: ASCORBIC ACID 500 MG TABLET PO SCH (08:33)
[2016-10-20] MEDS: MULTIVITAMINS,THERAPEUTIC 1 UDTAB TABLET PO SCH (08:34)
[2016-10-20] MEDS: LACTOBACILLUS RHAMNOSUS GG 1 EACH CAP.SPRINK PO SCH ×2 (08:34→16:14)
[2016-10-20] MEDS: LINAGLIPTIN 5 MG TABLET PO SCH (08:34)
[2016-10-20] MEDS: GLIMEPIRIDE 4 MG TABLET PO SCH (08:34)
[2016-10-20] MEDS: GABAPENTIN 400 MG CAPSULE PO SCH (08:34)
[2016-10-20] MEDS: AMLODIPINE BESYLATE 10 MG TABLET PO SCH (08:42)
[2016-10-20] MEDS: AMIODARONE HCL 200 MG TABLET PO SCH (08:43)
[2016-10-20] MEDS: hydrALAZINE HCL 50 MG TABLET PO SCH ×3 (08:44→16:20)
[2016-10-20] MEDS: HYDROGEL DRESSING 90 GM TUBE TP SCH (08:45)
[2016-10-20] MEDS: BENEFIBER 4 GM 1 EA PACKET PO SCH ×2 (08:48→16:14)
[2016-10-20] MEDS: NITROGLYCERIN 30 GM TUBE TP SCH ×2 (08:48→16:19)
[2016-10-20] MEDS ORDERED: Magnesium 1GM/D5W 100ML PREMIX 100 ML IV SCH (10:00)
--- NOTE | 2016-10-20 10:00 | NUR ---
RN NOTES PATIENT NOTED WITH LOW MAGNESIUM LEVEL OF 1.7. MG 1GM IN 100ML OF D5W ORDERED. WILL CONTINUE TO MONITOR.
--- NOTE | 2016-10-20 11:13 | NUR ---
RN NOTES PATIENT NOTED WITH HGB OF 7.3, HCT 23 AND RBC 3.04. MD MADE AWARE WITH ORDER TO INFUSE TO UNITS OF RPBCS. AWAITING FOR TYPE AND SCREEN. WILL CONTINUE TO MONITOR.
[2016-10-20] MEDS: INSULIN REGULAR, HUMAN 100 UNIT/ML 3 ML VIAL SQ PRN (11:53)
[2016-10-20] MEDS: SOD FERRIC GLUC 125 MG in IV NS 0.9% 100 ML IV SCH (13:41)
[2016-10-20] MEDS: diphenhydrAMINE HCL 25 MG CAPSULE PO PRN (14:21)
--- NOTE | 2016-10-20 14:44 | NUR ---
WOUND CARE CONSULT: PATIENT SEEN AND SKIN ASSESSMENT DONE. PATIENT ALERT, ORIENTED, CANNOT TURN AND REPOSITION SELF IN BED, INCONTINENT, KAR 12, ON BARIMAXX BED WITH ETS AIR MATTRESS. SEE TODAY'S SKIN ASSESSMENT IN [facility] ALONG WITH RECOMMENDATIONS. RECOMMEND MOISTURE PROTECTION AND PRESSURE PREVENTION MEASURES ORDERED. ALL DISCUSSED WITH NURSING STAFF. MD IN AGREEMENT WITH PLAN OF CARE. Addendum: 10/20/16 at 1449 by SELWYN SANTIAGO Amended: Links added. Addendum: 10/20/16 at 1502 by SELWYN IBRAHIMU WOUND CARE CONSULT CLARIFICATION THAT LIMITED SKIN ASSESSMENT WAS PERFORMED. THE PATIENT REFUSED TO HAVE BACK AND SACRUM SKIN ASSESSMENT.
[2016-10-20] MEDS: UREA 10% -AHA 4% CREAM 57 GM TUBE TP SCH ×2 (15:43→16:17)
[2016-10-20] MEDS: RIVAROXABAN 10 MG TABLET PO SCH (16:16)
[2016-10-20] MEDS ORDERED: GABAPENTIN 400 MG CAPSULE PO SCH (17:00)
[2016-10-20] MEDS ORDERED: BLOOD IV SET 1 EA INFUS.SET MC ONE (17:55)
[2016-10-20] MEDS ORDERED: IV NS 0.9% 250 ML IV ONE (18:05)
--- NOTE | 2016-10-20 18:07 | NUR ---
RN NOTES PATIENT CONSENT FOR BLOOD TRANSFUSION SIGNED AND FILED IN CHART. BLOOD TRANSFUSION STARTED AT 1805. V/S CHECKED AND WNL. WILL CONTINUE TO MONITOR.
--- NOTE | 2016-10-20 18:49 | NUR ---
RN NOTES PATIENT MONITOR FOR ANY ADVERSE REACTIONS FROM BLOOD TRANSFUSION, NONE NOTED. NO COMPLAINTS OF PAIN OR ITCHING, NO FEVER NOTED. WILL CONTINUE TO MONITOR.
[2016-10-20] MEDS: GUAIFENESIN/D-METHORPHAN HB 5 ML UDC PO PRN (18:52)
--- NOTE | 2016-10-20 19:17 | NUR ---
MS/RN CLOSING NOTES PATIENT IN BED AWAKE AND WATCHING TV. ALERT AND ORIENTED X3, HEAD OF BED ELEVATED. VERBALLY RESPONSIVE, DENIES ANY PAIN AND DISCOMFORTS AT THIS TIME. BLOOD TRANSFUSION STILL ONGOING, NO SIGNS OF ADVERSE REACTIONS NOTED. ON O2 THERAPY VIA N/C @ 2LPM, TOLERATED WELL. MID LINE ON RIGHT UPPER ARM INTACT AND PATENT. BOTH LOWER LEG WITH DRESSING INTACT, DRY AND CLEAN AND KEPT ELEVATED. SNEED CATH INTACT WITH CLEAR YELLOW URINE WITH OUTPUT OF 2200ML THIS SHIFT. OCCASIONAL COUGHING NOTED DURING TOUR NOTED, PRN ROBITUSSIN 10ML GIVEN WITH GOOD RESULTS. ENDORSED TO ENVIRONMENTAL DEPARTMENT MANAGER TO CONTINUE CARE.
[2016-10-20] MEDS: LIDOCAINE 5% (PATCH) 1 EA PATCH TP SCH (19:21)
--- NOTE | 2016-10-20 19:55 | NUR ---
MS RN NOTE: PATIENT RESTING IN BED, NO ACUTE DISTRESS NOTED. BREATHING EVEN AND UNLABORED, NO SOB NOTED. MIDLINE TO CIRA IN PLACE, PATIENT RECEIVED BLOOD TRANSFUSION WITHOUT ADVERSE REACTION. SNEED CATHETER IN PLACE, EMPTY AT THIS TIME. PATIENT DENIES S/S OF HYPER/HYPOGLYCEMIA AT THIS TIME. BED LOCKED AND IN LOWEST POSITION, CALL LIGHT IN REACH. WILL CONTINUE TO MONITOR.
--- NOTE | 2016-10-20 20:30 | NUR ---
MS RN NOTE: PATIENT FINISHED FIRST UNIT OF BLOOD TRANSFUSION WITHOUT REACTION. PATIENT VITAL SIGNS STABLE. WILL CONTINUE TO MONITOR.
[2016-10-20] MEDS: ATORVASTATIN 10 MG TABLET PO SCH (21:54)
[2016-10-20] MEDS: CELECOXIB 100 MG CAPSULE PO SCH (21:54)
[2016-10-20] MEDS: *INSULIN REGULAR(HUMULIN R)HUM 100 UNIT/ML VIAL SQ PRN (21:59)
[2016-10-20] MEDS: INSULIN DETEMIR 100 UNIT/ML CARTRIDGE SQ SCH (22:00)
[2016-10-20] MEDS ORDERED: NORTRIPTYLINE HCL 25 MG CAPSULE PO SCH (22:00)
--- NOTE | 2016-10-20 22:00 | NUR ---
MS RN NOTE: PATIENT BLOOD SUGAR LEVEL 152MG/DL, PATIENT TO RECEIVE 23 UNITS OF LEVEMIR PER MD ORDER AND 2 UNITS OF INSULIN PER SLIDING SCALE. PATIENT DENIES S/S OF HYPER/HYPOGLYCEMIA AT THIS TIME. WILL CONTINUE TO MONITOR.
[2016-10-20] MEDS: HYDROCODONE/APAP 10/325MG 1 EA TABLET PO PRN (22:24)
--- NOTE | 2016-10-20 22:30 | NUR ---
MS RN NOTE: PATIENT COMPLAINS OF LEFT SHOULDER PAIN 03/29, NORCO 10/325MG ORAL GIVEN PER MD ORDER. WILL CONTINUE TO MONITOR.
[2016-10-21] VITALS (9 sets, daily range): BP systolic 125–145; BP diastolic 47–58
[2016-10-21] MEDS: VANCOMYCIN 0.75 GM in IV D5W 250 ML IV SCH ×2 (00:16→12:23)
[2016-10-21] MEDS: ALBUTEROL HALF STRENGTH 1.25 MG/3 ML VIAL.NEB NEB SCH ×3 (00:51→13:11)
[2016-10-21] MEDS: IPRATROPIUM NEB FS 0.5 MG/2.5 ML AMPUL.NEB NEB SCH ×3 (00:51→13:11)
[2016-10-21] MEDS ORDERED: BLOOD IV SET 1 EA INFUS.SET MC ONE (02:32)
--- NOTE | 2016-10-21 03:00 | NUR ---
MS RN NOTE: PATIENT TO RECEIVE SECOND UNIT OF PRBC PER MD ORDER. BLOOD PICKED UP AND VERIFIED WITH ANGEL CHOU. VITAL SIGNS STABLE WILL CONTINUE TO MONITOR.
--- NOTE | 2016-10-21 03:15 | NUR ---
MS RN NOTE: PATIENT RECEIVING SECOND UNIT OF PRBC PER MD ORDER. VITAL SIGNS STABLE, NO ADVERSE REACTION NOTED. WILL CONTINUE TO MONITOR.
--- NOTE | 2016-10-21 03:45 | NUR ---
MS RN NOTE: PATIENT RECEIVING SECOND UNIT OF PRBC PER MD ORDER. VITAL SIGNS STABLE, NO ADVERSE REACTION NOTED. WILL CONTINUE TO MONITOR.
[2016-10-21] MEDS: GUAIFENESIN/D-METHORPHAN HB 5 ML UDC PO PRN ×2 (03:58→16:34)
--- NOTE | 2016-10-21 04:00 | NUR ---
MS RN NOTE: PATIENT WITH COUGH AND REQUESTING FOR COUGH MEDICATION. ROBITUSSIN 10ML ORAL GIVEN PER MD ORDER. WILL CONTINUE TO MONITOR.
[2016-10-21 04:09] LABS: VIT D, 25-HYDROXY 29.5 ng/mL (30.0-100.0)
--- NOTE | 2016-10-21 04:30 | NUR ---
MS RN NOTE: PATIENT RECEIVING SECOND UNIT OF PRBC PER MD ORDER. VITAL SIGNS STABLE, NO ADVERSE REACTION NOTED. WILL CONTINUE TO MONITOR.
[2016-10-21] MEDS ORDERED: IV NS 0.9% 250 ML IV ONE (05:20)
--- NOTE | 2016-10-21 06:05 | NUR ---
MS RN NOTE: PATIENT RESTING IN BED, NO ACUTE DISTRESS NOTED. BREATHING EVEN AND UNLABORED, NO SOB NOTED. MIDLINE TO CIRA IN PLACE, PATIENT RECEIVED SECOND UNITS OF BLOOD TRANSFUSION WITHOUT ADVERSE REACTION. SNEED CATHETER IN PLACE,DRAINED 1900 ML OF CLEAR YELLOW URINE. PATIENT BLOOD SUGAR LEVEL 129MG/DL, NO INSULIN NEEDED PER SLIDING SCALE. PATIENT DENIES S/S OF HYPER/HYPOGLYCEMIA AT THIS TIME. BED LOCKED AND IN LOWEST POSITION, CALL LIGHT IN REACH. WILL ENDORSE TO DAY NURSE TO CONTINUE WITH PLAN OF CARE.
[2016-10-21 06:09] LABS: *SPE A/G RATIO 0.6 (0.7-1.7); *SPE ALBUMIN 2.6 g/dL (2.9-4.4); *SPE ALPHA-1-GLOBULIN 0.3 g/dL (0.0-0.4); *SPE ALPHA-2-GLOBULIN 0.9 g/dL (0.4-1.0); *SPE BETA GLOBULIN 0.8 g/dL (0.7-1.3); *SPE M-SPIKE Not Observed g/dL (Not Observed); *SPE PROTEIN TOTAL 6.6 g/dL (6.0-8.5); *SPEGAMMA GLOBULIN 1.9 g/dL (0.4-1.8)
[2016-10-21] MEDS: BLOOD SUGAR DIAGNOSTIC 1 EACH STRIP VI SCH ×3 (06:41→16:48)
[2016-10-21 07:23] LABS: BASOPHILS # (AUTO) 0.1 /CMM (0.0-0.2); BASOPHILS % (AUTO) 0.9 % (0.0-2.0); EOSINOPHILS # (AUTO) 0.9 /CMM (0.0-0.7); EOSINOPHILS % (AUTO) 8.2 % (0.0-6.0); HEMATOCRIT 28 % (39-51); HEMOGLOBIN 9.2 g/dL (13.5-17.5); LYMPHOCYTES # (AUTO) 0.8 /CMM (0.8-4.8); MEAN CORPUSCULAR HEMOGLOBIN 26 PG (26.0-33.0); MEAN CORPUSCULAR HGB CONC 34 g/dl (31.0-36.0); MEAN CORPUSCULAR VOLUME 78 fL (80-96); MONOCYTES # (AUTO) 0.7 /CMM (0.1-1.30); MONOCYTES % (AUTO) 6.1 % (2.0-12.0); NEUTROPHILS % (AUTO) 77.8 % (43.0-81.0); PLATELET COUNT (AUTO) 244 /CMM (150-450); RDW COEFFICIENT OF VARIATION 18.8 (11.5-15.0); RED BLOOD CELL COUNT(AUTO) 3.51 MIL/uL (4.5-6.0); WHITE BLOOD COUNT (AUTO) 11.5 K/uL (4.3-11.0)
--- NOTE | 2016-10-21 07:30 | NUR ---
MS RN NOTE: PATIENT RESTING IN BED, NO ACUTE DISTRESS NOTED. BREATHING EVEN AND UNLABORED, NO SOB NOTED. MIDLINE TO CIRA IN PLACE, SNEED CATHETER IN PLACE,DRAINED CLEAR YELLOW URINE. NO S/S HYPO/HYPERGLYCEMIA NOTED. BED LOCKED AND IN LOWEST POSITION, CALL LIGHT IN REACH. WILL CONTINUE TO MONITOR
[2016-10-21 08:03] LABS: ALBUMIN 2.2 g/dL (3.4-5.0); BILIRUBIN,TOTAL 0.5 mg/dL (0.2-1.0); CALCIUM, SERUM 8.4 mg/dL (8.5-10.1); MAGNESIUM 1.7 mg/dL (1.8-2.4); PHOSPHORUS 3.7 mg/dL (2.5-4.9); POTASSIUM 4.1 mmol/L (3.5-5.1); TOTAL PROTEIN, SERUM 6.9 g/dL (6.4-8.2)
[2016-10-21] MEDS: CELECOXIB 100 MG CAPSULE PO SCH (08:43)
[2016-10-21] MEDS: AMIODARONE HCL 200 MG TABLET PO SCH (08:44)
[2016-10-21] MEDS: ZINC SULFATE 220 MG CAPSULE PO SCH (08:45)
[2016-10-21] MEDS: LACTOBACILLUS RHAMNOSUS GG 1 EACH CAP.SPRINK PO SCH ×2 (08:45→16:35)
[2016-10-21] MEDS: ASCORBIC ACID 500 MG TABLET PO SCH (08:45)
[2016-10-21] MEDS: GLIMEPIRIDE 4 MG TABLET PO SCH (08:45)
[2016-10-21] MEDS: MULTIVITAMINS,THERAPEUTIC 1 UDTAB TABLET PO SCH (08:45)
[2016-10-21] MEDS: LINAGLIPTIN 5 MG TABLET PO SCH (08:45)
[2016-10-21] MEDS: PANTOPRAZOLE 40 MG TABLET.DR PO SCH (08:46)
[2016-10-21] MEDS: hydrALAZINE HCL 50 MG TABLET PO SCH ×3 (08:47→16:38)
[2016-10-21] MEDS: BENEFIBER 4 GM 1 EA PACKET PO SCH ×2 (08:47→16:35)
[2016-10-21] MEDS: NITROGLYCERIN 30 GM TUBE TP SCH ×2 (08:48→16:35)
[2016-10-21] MEDS: UREA 10% -AHA 4% CREAM 57 GM TUBE TP SCH ×2 (08:49→16:59)
[2016-10-21] MEDS: HYDROGEL DRESSING 90 GM TUBE TP SCH (08:49)
[2016-10-21] MEDS: AMLODIPINE BESYLATE 10 MG TABLET PO SCH (10:00)
[2016-10-21] MEDS: GABAPENTIN 300 MG CAPSULE PO SCH ×2 (10:11→16:35)
[2016-10-21] MEDS ORDERED: LIDO30AD10 TP (11:53)
[2016-10-21] MEDS ORDERED: GABA300C PO (11:53)
[2016-10-21] MEDS ORDERED: Nortriptyline Hcl PO (11:53)
[2016-10-21] MEDS ORDERED: HYDR-3658 PO (11:53)
[2016-10-21] MEDS ORDERED: CELE100C PO (11:53)
[2016-10-21] MEDS ORDERED: BUME1TAB4 PO (11:55)
[2016-10-21] MEDS ORDERED: LEVO500T15 PO (12:00)
[2016-10-21] MEDS ORDERED: UREA57CR TP (12:00)
[2016-10-21] MEDS ORDERED: VANC500V IV (12:00)
[2016-10-21] MEDS: INSULIN REGULAR, HUMAN 100 UNIT/ML 3 ML VIAL SQ PRN ×2 (12:20→16:51)
[2016-10-21 12:21] LABS: *SPE A/G RATIO 0.7 (0.7-1.7); *SPE ALBUMIN 2.6 g/dL (2.9-4.4); *SPE ALPHA-1-GLOBULIN 0.3 g/dL (0.0-0.4); *SPE ALPHA-2-GLOBULIN 0.9 g/dL (0.4-1.0); *SPE BETA GLOBULIN 0.8 g/dL (0.7-1.3); *SPE GLOBULIN, TOTAL 3.7 g/dL (2.2-3.9); *SPE M-SPIKE Not Observed g/dL (Not Observed); *SPE PROTEIN TOTAL 6.3 g/dL (6.0-8.5); *SPEGAMMA GLOBULIN 1.7 g/dL (0.4-1.8)
[2016-10-21] MEDS ORDERED: MAGNESIUM OXIDE 400 MG TABLET PO ONE (12:30)
[2016-10-21] MEDS ORDERED: BUMETANIDE INJ 16 MG in IV NS 0.9% 16 ML IV ONE (12:30)
[2016-10-21 13:17] LABS: PTH, INTACT 32 pg/mL (15-65)
--- NOTE | 2016-10-21 13:30 | NUR ---
RN NOTES PATIENT WITH DISCHARGE ORDERS, WILL CONTINUE TO MONITOR AND ASSIST WITH DISCHARGE PROCESS APPROPRIATE
[2016-10-21] MEDS: HYDROCODONE/APAP 10/325MG 1 EA TABLET PO PRN (15:09)
[2016-10-21] MEDS: SOD FERRIC GLUC 125 MG in IV NS 0.9% 100 ML IV SCH (15:28)
[2016-10-21] MEDS: LEVOFLOXACIN 750 MG /D5W 150ML 750 MG in PREMIX 1 EA IV SCH (16:39)
[2016-10-21] MEDS: RIVAROXABAN 10 MG TABLET PO SCH (16:41)
[2016-10-21] MEDS: LIDOCAINE 5% (PATCH) 1 EA PATCH TP SCH (17:00)
--- NOTE | 2016-10-21 17:26 | NUR ---
MS RN NOTE: PATIENT SITTING UP IN BED, NO ACUTE DISTRESS NOTED. BREATHING EVEN AND UNLABORED, NO SOB NOTED IN NO APPARENT PAIN OR DISCOMFORT. IV TO RIGHT UPPER ARM PATENT AND INTACT NO REDNESS OR INFILTRATION NOTED. PICTURES OF SKIN TAKEN AND PLACED IN CHART. DISCHARGE INSTRUCTIONS REVIEWED WITH PATIENT WITH NOTED VERBAL UNDERSTANDING, REPORT GIVEN TO MIRIAM OLIVERA FOR CONTINUITY OF CARE WILL AWAIT EMT TRANSPORT
--- NOTE | 2016-10-21 18:10 | NUR ---
RN NOTES EMT IN FACILITY FOR SPIRITUAL COUNSELOR, REPORT GIVEN TO EMT FOR CONTINUITY OF CARE, PATIENT IN STABLE CONDITION, MIRIAM OLIVERA AWARE OF PATIENTS ARRIVAL Addendum: 10/21/16 at 1836 by TOM FRANKLIN RN RN NOTES DISCHARGED IN STABLE CONDITION
== END 2016-10-21 18:07 | DRG 177 ==
LOC: ER 05:57 → TELE 08:06 → MED 10-18 10:20
PROVIDERS: ADMIT Internal Medicine; ATTEND Internal Medicine
PROC: 05H533Z Insertion of Infusion Device into Right Subclavian Vein, Percutaneous Approach (ICD-10-PCS; principal; 2016-10-17)
PROC: 30233N1 Transfusion of Nonautologous Red Blood Cells into Peripheral Vein, Percutaneous Approach (ICD-10-PCS; 2016-10-20)
DX: J15.6 Pneumonia due to other Gram-negative bacteria (principal); J96.01 Acute respiratory failure with hypoxia; I50.33 Acute on chronic diastolic (congestive) heart failure; J96.02 Acute respiratory failure with hypercapnia; N17.0 Acute kidney failure with tubular necrosis; I13.0 Hypertensive heart and chronic kidney disease with heart failure and stage 1 through stage 4 chronic kidney disease, or unspecified chronic kidney disease; J44.0 Chronic obstructive pulmonary disease with (acute) lower respiratory infection; J44.1 Chronic obstructive pulmonary disease with (acute) exacerbation; L03.90 Cellulitis, unspecified; Z68.43 Body mass index [BMI] 50.0-59.9, adult; N18.9 Chronic kidney disease, unspecified; D63.8 Anemia in other chronic diseases classified elsewhere; E78.5 Hyperlipidemia, unspecified; I25.10 Atherosclerotic heart disease of native coronary artery without angina pectoris; Z87.891 Personal history of nicotine dependence; E11.22 Type 2 diabetes mellitus with diabetic chronic kidney disease; E66.01 Morbid (severe) obesity due to excess calories; G47.30 Sleep apnea, unspecified; E11.21 Type 2 diabetes mellitus with diabetic nephropathy; E11.51 Type 2 diabetes mellitus with diabetic peripheral angiopathy without gangrene; E11.622 Type 2 diabetes mellitus with other skin ulcer; L98.499 Non-pressure chronic ulcer of skin of other sites with unspecified severity; I48.91 Unspecified atrial fibrillation; K21.9 Gastro-esophageal reflux disease without esophagitis; M19.019 Primary osteoarthritis, unspecified shoulder; T50.2X5A Adverse effect of carbonic-anhydrase inhibitors, benzothiadiazides and other diuretics, initial encounter; Z79.4 Long term (current) use of insulin; Z79.84 Long term (current) use of oral hypoglycemic drugs; Z89.412 Acquired absence of left great toe; Z91.14 Patient's other noncompliance with medication regimen; E88.81 Metabolic syndrome and other insulin resistance
CPT/HCPCS: 36415; 36600; 71010-TC; 76770-TC; 80048-TC; 80053-TC; 80061-TC; 80076-TC; 80202-TC; 81000-TC; 82306; 82550-TC; 82570-TC; 82728-TC; 82962-TC; 83540-TC; 83605-TC; 83735-TC; 83880; 83970; 84100-TC; 84155; 84155-TC; 84165; 84300-TC; 84439-TC; 84443-TC; 84484-TC; 85025-TC; 85730-TC; 86850-TC; 86921-TC; 87040-TC; 87081-TC; 93307-TC; 93925-TC; 93970-TC; 94799-TC; A4216; A4606; A6248; A6402; A6403; J1815; J1940; J1956; J2916; J3370; J3475; J3490; J7030; J7050; J7060; P9016-BL; Q0163; Z7610

== ENCOUNTER 2017-02-04 00:16 | Inpatient (IN) | payer MEDICARE, OTHER ==
[~2017-02-04] VITALS: Ht 185.4 cm; Wt 165.6 kg
[~2017-02-04 00:16] MED LIST changes: -ACET325T53 PO; -ALLA266C2 TP; -AMIO200T PO; +AMIO200T2 PO; +ARGI1POW13 PO; +BISA10SU8 RC; +BLOO-697 IN; +BUME1TAB4 PO; -Blood Sugar Diagnostic VI; +CELE100C PO; -DEXT50DI8 IV; -DIPH25CA49 PO; -Doxycycline Hyclate PO; +FERR-58 PO; +GABA300C PO; -GABA400C PO; -GLIM4TAB PO; +GLIM4TAB2 PO; +GUAI-959 PO; -Gel Dressing TP; -HYDR-3326 PO; +HYDR-3658 PO; +HYDR-4076 PO; -HYDR28.32 TP; -Hydralazine Hcl PO; +IBUP-1481 PO; -INSU100V28 SQ; +INSU100V3 SQ; +INSU100V7 SQ; +LEVO500T15 PO; +LIDO30AD10 TP; -MAG30ORA PO; +MAGN400O6 PO; +MULT-1168 PO; -MULT-24 PO; +NA P133E RC; +NITR1OIN2 TD; -Nitroglycerin TP; +Nortriptyline Hcl PO; +ONDA-25 PO; -Ondansetron Hcl/Pf IV; -PANT40TA2 PO; +PANT40TA4 PO; +SITA50TA PO; +UREA57CR TP; +VALS80TA2 PO; +VANC500V IV; -Valsartan PO; +WHEA1POW6 PO; +ZINC220C8 PO
--- NOTE | 2017-02-04 00:31 | NUR ---
PT BB AMBULANCE FROM [facility]; SOB X 1 WK. PT AOX3 RR EVEN AND UNLABORED. NO SOB NOTED. NAD NOTED. NO NVD AT THIS TIME. PT GOWNED AND PLACED ON MONITOR. PT NOT DIAPHORETIC. WAITING FOR MD MARTINEZ.
--- NOTE | 2017-02-04 01:48 | NUR ---
XRAY AT BEDSIDE
--- NOTE | 2017-02-04 01:57 | NUR ---
IV RIGHT UPPER ARM 20G STARTED, LABS AND BLOOD CX DRAWN. SENT TO LAB
[2017-02-04 02:15] LABS: BASOPHILS # (AUTO) 0.4 /CMM (0.0-0.2); BASOPHILS % (AUTO) 1.8 % (0.0-2.0); EOSINOPHILS # (AUTO) 0.2 /CMM (0.0-0.7); HEMATOCRIT 27 % (39-51); HEMOGLOBIN 8.6 g/dL (13.5-17.5); LYMPHOCYTES % (AUTO) 4.5 % (20.0-44.0); MEAN CORPUSCULAR HEMOGLOBIN 25 PG (26.0-33.0); MEAN CORPUSCULAR HGB CONC 32 g/dl (31.0-36.0); MEAN CORPUSCULAR VOLUME 78 fL (80-96); MONOCYTES # (AUTO) 1.8 /CMM (0.1-1.30); NEUTROPHILS # (AUTO) 18.8 /CMM (1.8-8.9); NEUTROPHILS % (AUTO) 84.7 % (43.0-81.0); PLATELET COUNT (AUTO) 204 /CMM (150-450); RDW COEFFICIENT OF VARIATION 18.1 (11.5-15.0); WHITE BLOOD COUNT (AUTO) 22.2 K/uL (4.3-11.0)
[2017-02-04] MEDS: IV NS 0.9% 1,000 ML BAG IV ONE ×2 (02:17→02:19)
[2017-02-04 02:37] LABS: INR 1.19 (0.87-1.13); PROTHROMBIN TIME 12.9 SECS (9.5-12.7)
--- NOTE | 2017-02-04 02:40 | NUR ---
URINE COLLECTED. CALLED LAB FOR SHOT HOLE DRILLER.
[2017-02-04 02:46] LABS: TROPONIN I < 0.017 ng/mL (0.00-0.056)
[2017-02-04 02:49] LABS: ALANINE AMINOTRANSFERASE 34 U/L (12-78); ALKALINE PHOSPHATASE 126 U/L (46-116); ASPARTATE AMINOTRANSFERASE 40 U/L (15-37); B-TYPE NATRIURETIC PEPTIDE 938 PG/ML (0-125); BILIRUBIN,DIRECT 0.2 mg/dL (0.0-0.2); BILIRUBIN,TOTAL 0.6 mg/dL (0.2-1.0); CALCIUM, SERUM 8.7 mg/dL (8.5-10.1); CARBON DIOXIDE 22 mmol/L (21-32); CHLORIDE 96 mmol/L (98-107); CREATININE 6.3 mg/dL (0.6-1.3); GLUCOSE 250 mg/dL (74-106); POTASSIUM 5.8 mmol/L (3.5-5.1); SODIUM SERUM 130 mmol/L (136-145); TOTAL PROTEIN, SERUM 7.7 g/dL (6.4-8.2)
[2017-02-04 02:58] LABS: UREA NITROGEN, BLOOD 110 mg/dL (7-18)
[2017-02-04 03:31] LABS: BAND % (MANUAL) 4 % (0.0-5.0); EOSINOPHILS % (MANUAL) 1 % (0-4); LYMPHOCYTES % (MANUAL) 2 % (16-48); MONOCYTES % (MANUAL) 5 % (0-11.0); NEUTROPHILS % (MANUAL) 88 (42-76)
[2017-02-04 03:37] LABS: APPEARANCE,URINE CLEAR (CLEAR); BILIRUBIN,URINE NEGATIVE (NEGATIVE); BLOOD, URINE NEGATIVE Ery/uL (NEGATIVE); COLOR,URINE YELLOW (YELLOW); KETONES,URINE NEGATIVE (NEGATIVE); LEUKOCYTE ESTERASE ,URINE NEGATIVE (NEGATIVE); NITRITE, URINE NEGATIVE (NEGATIVE); PH,URINE 5.5 (5.0-8.0); PROTEIN,URINE NEGATIVE (NEGATIVE); UGLUCOSE TRACE mg/dL (NEGATIVE); UROBILINOGEN,URINE 0.2 EU/dL (0.2)
[2017-02-04 03:57] LABS: BACTERIA,URINE None seen /HPF (None Seen); RBC,URINE 0-2 /HPF (0-2); SQUAMOUS EPITHELIAL CELL,UR Rare /HPF (None Seen); URINE AMORPHOUS URATE Few /HPF (None Seen); WBC,URINE 0-2 /HPF (0-3)
--- NOTE | 2017-02-04 04:08 | NUR ---
REPORT GIVEN TO ANGEL MANCINI FOR CONTINUE OF CARE/ TELE BED 309-1
[2017-02-04 04:30] VITALS: BP 113/38
--- NOTE | 2017-02-04 04:30 | NUR ---
TELE/RN NOTES PT ARRIVED TO UNIT VIA KARIS FROM ER. ON 2LPM 02 VIA NC, BREATHING EVEN AND UNLABORED. NO S/S OF SOB OR DISTRESS NOTED. ON TELE MONITOR SHOWING SINUS RHYTHM WITH 1ST DEGREE AV BLOCK AND BBB, HR AT 68. DENIES PAIN AT THIS TIME. IV TO CIRA PATENT AND INTACT. BED IN LOW/LOCKED POSITION WITH CALL LIGHT IN REACH. SIDE RAILS UPX2. ORIENTED PT TO ROOM AND CALL LIGHT. WILL CONTINUE TO MONITOR
--- NOTE | 2017-02-04 04:33 | NUR ---
PT TRASNFERED PER ACLS PROTOCOL.
[2017-02-04] MEDS ORDERED: IV NS 0.9% 1,000 ML BAG IV ONE (05:30)
[2017-02-04] MEDS ORDERED: LORAZEPAM INJ 2 MG/ML VIAL IVP PRN (05:30)
[2017-02-04] MEDS ORDERED: VANCOMYCIN 1 GM in IV D5W 250 ML IV ONE (05:30)
[2017-02-04] MEDS ORDERED: MORPHINE SULFATE INJ 2 MG/ML DISP.SYRIN IV PRN (05:30)
[2017-02-04] MEDS ORDERED: ONDANSETRON HCL/PF 4 MG/2 ML VIAL IVP PRN (05:30)
--- NOTE | 2017-02-04 05:30 | NUR ---
TELE/RN NOTES PT HAS SEALED ENVELOPE IN WHICH HE CLAIMS TO HAVE $5,000 IN IT AND DOES NOT WANT IT TO BE OPENED BY STAFF. IN ADDITION, PT HAS MORE THAN $1,000 GARVIN IN HIS WALLET. PT ENCOURAGED TO PUT MONEY IN THE SAFE BUT PT REFUSED AND WANTS TO KEEP HIS MONEY AT HIS SIDE AT ALL TIMES. MATERIALS CLERK NOTIFIED. PT SIGNED BELONGINGS LIST. COSIGNED WITH 2 SAND ANALYST'S Addendum: 02/04/17 at 0854 by ADDIS BAEZ RN EDUCATION PROVIDED ABOUT RECEIVING A RECEIPT IF HE PUTS HIS MONEY IN THE SAFE SO HE CAN GET IT BACK UPON DISCHARGE. PT ADAMANTLY REFUSED.
[2017-02-04] MEDS ORDERED: *INSULIN REGULAR(HUMULIN R)HUM 100 UNIT/ML VIAL SQ PRN (06:00)
[2017-02-04] MEDS ORDERED: VANCOMYCIN 1 GM VIAL ONE (06:00)
[2017-02-04] MEDS ORDERED: GUAIFENESIN/D-METHORPHAN HB 5 ML UDC PO PRN (06:00)
[2017-02-04] MEDS ORDERED: NA PHOS,M-B/NA PHOS,DI-BA 1 EA ENEMA RC PRN (06:00)
[2017-02-04] MEDS ORDERED: BISACODYL SUPP (10 MG) 10 MG/SUPP.RECT SUPP.RECT RC PRN (06:00)
[2017-02-04] MEDS ORDERED: MAGNESIUM HYDROXIDE 30 ML UDC PO PRN (06:00)
[2017-02-04] MEDS ORDERED: DEXTROSE 50%-WATER 50 ML DISP.SYRIN IV PRN (06:00)
[2017-02-04] MEDS ORDERED: hydrALAZINE HCL 25 MG TABLET PO PRN (06:00)
--- NOTE | 2017-02-04 06:00 | NUR ---
TELE/RN NOTES PT FOR SEPSIS FLUID MANAGEMENT. 30ML/171KG=5,140ML FIRST BAG OF 5 INFUSING. WILL ENDORSE TO AM SHIFT.
--- NOTE | 2017-02-04 06:40 | NUR ---
TELE/RN NOTES PAGED DR. LAIRD AFTER NOTIFYING DR. VALLES OF PT'S OX=955, K=5.8, DPE=642, CR=6.3 DR. VALLES SAID PT MAY NEED DIALYSIS AND WANTS NEPHRO CONSULT. DR. LAIRD PAGED AND AWAITING CALL BACK. WILL ENDORSE TO DAY SHIFT RN.
[2017-02-04] MEDS: BLOOD SUGAR DIAGNOSTIC 1 EACH STRIP IN SCH ×4 (06:56→22:13)
--- NOTE | 2017-02-04 06:59 | NUR ---
TELE/RN NOTES VANCOMYCIN INFUSING. UNABLE TO ADMINISTER SCHEDULED LEVEQUIN AT THIS TIME. MEDICATION ALSO NOT AVAILABLE ON UNIT, COMMODITIES REQUIREMENTS ANALYST TO OVERRIDE. PT IS A HARD STICK. WILL ENDORSE TO AM SHIFT.
--- NOTE | 2017-02-04 07:00 | NUR ---
TELE/RN NOTES PT ASLEEP, AROUSABLE TO NAME. ON 2LPM 02 VIA NC, BREATHING EVEN AND UNLABORED. NO S/S OF DISTRESS NOTED. ON TELE MONITOR SHOWING SINUS RHTYHM WITH BBB AND 1ST DEGREE AV BLOCK, HR=64. DENIES PAIN AT THIS TIME. IV TO RFA RUNNING IVF ORDERED. BLOOD SUGAR IN AM WAS 233, ADMINISTERED 8 UNITS OF INSULIN PER SLIDING SCALE. BED IN LOW/LOCKED POSITION WITH CALL LIGHT IN REACH. BED RAILS UPX2. ENDORSED TO AM SHIFT RONAN.
[2017-02-04] MEDS: INSULIN REGULAR, HUMAN 100 UNIT/ML 3 ML VIAL SQ PRN ×3 (07:01→18:22)
[2017-02-04 07:28] LABS: IRON, SERUM 13 ug/dl (50-175); TOTAL IRON BINDING CAPACITY 201 ug/dl (250-450)
[2017-02-04] MEDS ORDERED: BLOOD SUGAR DIAGNOSTIC 1 EACH STRIP IN SCH (07:30)
[2017-02-04 08:00] VITALS: BP 116/46
[2017-02-04] MEDS: AMIODARONE HCL 200 MG TABLET PO SCH (09:00)
[2017-02-04] MEDS: NITROGLYCERIN PACKET 1 GM PACKET TD SCH ×2 (09:00→21:00)
[2017-02-04] MEDS ORDERED: Medication Not On Formulary EA (Arginine/Ascorbate Sod/Vite AC (Arginaid Powder) 1 EACH) PO SCH (09:00)
[2017-02-04] MEDS: BENEFIBER 4 GM 1 EA PACKET PO SCH ×2 (09:00→17:00)
[2017-02-04] MEDS ORDERED: SITAGLIPTIN PHOSPHATE 50 MG TABLET PO SCH (09:00)
--- NOTE | 2017-02-04 09:04 | NUR ---
RN NOTE RECEIVED PT. PT IS AWAKE AND IN BED. A&OX4. NO S/S OF PAIN, DISTRESS OR SOB. PT TRANSFERRED TO AIR MATTRESS. BELONGINGS/BAG AT THE PATIENTS BEDSIDE. IV ACCESS AT CIRA 20G. PT IS ON O2 VIA NASAL CANNULA AT 2L/MIN. WILL CONTINUE TO MONITOR.
[2017-02-04] MEDS ORDERED: FEE PK DOSING 1 MIN EA MC ONE (09:15)
[2017-02-04] MEDS ORDERED: LEVOFLOXACIN 750 MG /D5W 150ML 150 ML IV ONE (09:24)
[2017-02-04] MEDS ORDERED: IV NS 0.9% 1,000 ML IV PRN (09:35)
[2017-02-04] MEDS: LACTOBACILLUS RHAMNOSUS GG 1 EACH CAP.SPRINK PO SCH ×2 (10:08→16:17)
[2017-02-04] MEDS: PANTOPRAZOLE 40 MG TABLET.DR PO SCH (10:09)
[2017-02-04] MEDS: MULTIVITAMINS,THERAGRAN 1 UDTAB TABLET PO SCH (10:09)
[2017-02-04] MEDS: FERROUS SULFATE (325 MG) 325 MG/TAB TABLET PO SCH (10:09)
[2017-02-04] MEDS: ZINC SULFATE 220 MG CAPSULE PO SCH (10:09)
[2017-02-04] MEDS: GABAPENTIN 300 MG CAPSULE PO SCH ×2 (10:10→16:17)
[2017-02-04] MEDS: GLIMEPIRIDE 4 MG TABLET PO SCH (10:10)
[2017-02-04] MEDS: methylPREDNISolone SOD SUCC 125 MG/2ML VIAL IV SCH ×3 (10:11→16:17)
[2017-02-04 10:20] LABS: THYROID STIMULATING HORMONE 1.211 uIU/mL (0.358-3.74)
[2017-02-04] MEDS: ASCORBIC ACID 500 MG TABLET PO SCH (10:40)
[2017-02-04] MEDS: UREA 10% -AHA 4% CREAM 57 GM TUBE TP SCH ×2 (10:41→16:48)
[2017-02-04] MEDS: HYDROCODONE/APAP 10/325MG 1 EA TABLET PO PRN (10:41)
[2017-02-04] MEDS: LIDOCAINE 5% (PATCH) 1 EA PATCH TP SCH (10:47)
[2017-02-04] MEDS ORDERED: SODIUM POLYSTYRENE SULFONATE 15 G/60 ML BOTTLE PO ONE (11:30)
[2017-02-04] MEDS ORDERED: BUMETANIDE INJ 2 MG in IV NS 0.9% 32 ML IV ONE (11:30)
[2017-02-04 12:00] VITALS: BP 96/48
[2017-02-04 12:13] LABS: CALCIUM, SERUM 8.4 mg/dL (8.5-10.1); CARBON DIOXIDE 24 mmol/L (21-32); CHLORIDE 99 mmol/L (98-107); CREATININE 6.2 mg/dL (0.6-1.3); GLUCOSE 214 mg/dL (74-106); POTASSIUM 5.2 mmol/L (3.5-5.1); SODIUM SERUM 132 mmol/L (136-145)
[2017-02-04 12:15] LABS: UREA NITROGEN, BLOOD 114 mg/dL (7-18)
[2017-02-04] MEDS: INSULIN DETEMIR 100 UNIT/ML CARTRIDGE SQ SCH (12:22)
--- NOTE | 2017-02-04 12:40 | NUR ---
WOUND CARE CONSULT: PT FOLLOWED BY SURGICAL TEAM. DEFER TO SURGICAL TEAM FOR WOUND AND SKIN TREATMENT PLAN. PT ON BARIMAX BED. WILL SEE PRN. DAVALOS IN AGREEMENT WITH PLAN OF CARE.
[2017-02-04] MEDS: Z GUARD REMEDY 2 OZ OINT TP SCH (13:46)
--- NOTE | 2017-02-04 15:04 | NUR ---
RN NOTE AM AMIODARONE HELD DUE TO LOW HR.
[2017-02-04 16:00] VITALS: BP 116/50
--- NOTE | 2017-02-04 16:08 | NUR ---
box worker met with patient at bed side. Patient was oriented x4. Per patient, he resides at [place] [phone]. ([phone]). Per patient, he has no hx of drug or alcohol abuse. Patient is and stated that his lives at home. Per patient, he receives SSI (1,000/month). Patient stated that he had been in the but does not receive VA benefits. Patient denied visual and auditory hallucinations. box worker asked patient if he had suicidal ideations. Patient, responded "not yet" licensed clinical social worker asked patient if he had attempted suicide in the past and patient stated three times. Patient stated that his plan was "bullet to the head." box worker asked patient if he has any weapons at home. Patient stated that he no longer had any weapons that his brother had taken the weapons. Patient stated, "I don't want to be in reality anymore." but stated he was not suicidal at he moment. box worker asked patient if he had any homicidal ideations and patient responded "not yet." box worker informed patient that she was available if needed. Addendum: 02/06/17 at 1004 by [facility] box worker informed charge nurse Soon that patient needs a psych consult.
[2017-02-04] MEDS ORDERED: RIVAROXABAN 10 MG TABLET PO SCH (17:53)
--- NOTE | 2017-02-04 19:15 | NUR ---
RN CLOSING NOTE PT AWAKE. A&OX4. NO S/S OF PAIN OR DISTRESS. TELE MONITOR READS SR WITH 1ST DEGREE AV BLOCK AT [address] 15F SNEED CATHETER, COUDET CATHETER ORDERED. ALL PATIENT NEEDS MET. SAFETY MEASURES IN PLACE. CALL LIGHT WITHIN REACH. WILL ENDORSE TO [employer] CONSULTANT FOR RONAN.
[2017-02-04 20:00] VITALS: BP_SYST 106; BP_SYST 110; BP_DIAS 38; BP_DIAS 60
--- NOTE | 2017-02-04 20:00 | NUR ---
TELE INSURANCE RISK ANALYST INITIAL NOTES CHECKED PT IN BED SITTING WHILE WATCHING TV AT THIS TIME. NOT IN ANY ACUTE DISTRESS NOTED. ON BARIMAXX BED FOR PT COMFORT. DENIES ANY PAIN OR ANY DISCOMFORT AT THIS TIME. OBESE PT AND NOTED BILATERAL LOWER CELLULITIS AND EDEMA NOTED. HE ALSO ON TELE SR WITH BBB HEART RATE 68. ENCOURAGE HIM TO USED THE CALL LIGHT SYSTEM IF HE NEEDS SOME HELPED. KEPT HIM WARM AND COMFORTABLE AT ALL TIMES. ISOLATION PRECAUTION IMPLEMENTED AND OBSERVED. PLACE CALL LIGHT AT [facility].
[2017-02-04] MEDS ORDERED: NORTRIPTYLINE HCL 25 MG CAPSULE PO SCH (22:00)
[2017-02-04] MEDS: ATORVASTATIN 10 MG TABLET PO SCH (22:11)
[2017-02-05] VITALS (7 sets, daily range): BP systolic 90–140; BP diastolic 36–80
[2017-02-05] MEDS ORDERED: LIDOCAINE 2% JEL UROJET 10 ML MM ONE ×2 (00:51→01:00)
[2017-02-05] MEDS ORDERED: ZOLPIDEM TARTRATE 5 MG TABLET ONE (00:55)
[2017-02-05] MEDS: ZOLPIDEM TARTRATE 5 MG TABLET PO PRN ×2 (00:59→22:02)
--- NOTE | 2017-02-05 00:59 | NUR ---
ACCOUNT RECEIVABLE CLERK/NOTES AMBIEN GIVEN PER PT REQUESTED AND ORDERED. NO SIGNS OF ANY ACUTE DISTRESS NOTED. WILL CONTINUE TO MONITOR. TELE SR WITH BBB.
--- NOTE | 2017-02-05 03:47 | NUR ---
LIGHT COIL WINDER/.NOTES SLEEPING COMFORTABLY IN BED WITHOUT ANY ACUTE DISTRESS NOTED , RESPIRATION EVEN AND NON-LABORED, SNEED TO GRAVITY KEPT HIM WARM AND COMFORTABLE AT ALL TIMES. WILL CONTINUE TO MONITOR. PLACE CALL LIGHT AT REACH.
[2017-02-05] MEDS: LIDOCAINE 5% (PATCH) 1 EA PATCH TP SCH (06:00)
[2017-02-05] MEDS: BLOOD SUGAR DIAGNOSTIC 1 EACH STRIP IN SCH ×4 (06:28→21:57)
[2017-02-05] MEDS ORDERED: HYDROGEL DRESSING 90 GM TUBE TP PRN (06:30)
[2017-02-05] MEDS: INSULIN REGULAR, HUMAN 100 UNIT/ML 3 ML VIAL SQ PRN ×4 (06:34→21:55)
[2017-02-05 06:45] LABS: BASOPHILS % (AUTO) 0.2 % (0.0-2.0); HEMATOCRIT 28 % (39-51); HEMOGLOBIN 9.1 g/dL (13.5-17.5); LYMPHOCYTES # (AUTO) 0.5 /CMM (0.8-4.8); LYMPHOCYTES % (AUTO) 3.2 % (20.0-44.0); MEAN CORPUSCULAR HEMOGLOBIN 26 PG (26.0-33.0); MEAN CORPUSCULAR HGB CONC 32 g/dl (31.0-36.0); MEAN CORPUSCULAR VOLUME 80 fL (80-96); MONOCYTES % (AUTO) 0.1 % (2.0-12.0); NEUTROPHILS # (AUTO) 15.5 /CMM (1.8-8.9); NEUTROPHILS % (AUTO) 96.5 % (43.0-81.0); PLATELET COUNT (AUTO) 174 /CMM (150-450); RDW COEFFICIENT OF VARIATION 17.8 (11.5-15.0); RED BLOOD CELL COUNT(AUTO) 3.54 MIL/uL (4.5-6.0); WHITE BLOOD COUNT (AUTO) 16.1 K/uL (4.3-11.0)
[2017-02-05 06:53] LABS: INR 1.13 (0.87-1.13); PROTHROMBIN TIME 12.2 SECS (9.5-12.7)
[2017-02-05 07:01] LABS: ALANINE AMINOTRANSFERASE 28 U/L (12-78); ALBUMIN 1.7 g/dL (3.4-5.0); ALKALINE PHOSPHATASE 129 U/L (46-116); ASPARTATE AMINOTRANSFERASE 29 U/L (15-37); BILIRUBIN,TOTAL 0.4 mg/dL (0.2-1.0); CALCIUM, SERUM 8.2 mg/dL (8.5-10.1); CARBON DIOXIDE 22 mmol/L (21-32); CHLORIDE 97 mmol/L (98-107); CREATININE 5.9 mg/dL (0.6-1.3); MAGNESIUM 2.2 mg/dL (1.8-2.4); PHOSPHORUS 7.2 mg/dL (2.5-4.9); SODIUM SERUM 132 mmol/L (136-145); TOTAL PROTEIN, SERUM 6.9 g/dL (6.4-8.2)
[2017-02-05 07:04] LABS: TROPONIN I < 0.017 ng/mL (0.00-0.056)
[2017-02-05 07:09] LABS: CREATINE KINASE, TOTAL 15 U/L (39-308)
[2017-02-05 07:29] LABS: GLUCOSE 488 mg/dL (74-106); POTASSIUM 6.4 mmol/L (3.5-5.1)
[2017-02-05 07:30] LABS: UREA NITROGEN, BLOOD 126 mg/dL (7-18)
--- NOTE | 2017-02-05 07:30 | NUR ---
TELE CASING RUNNER CLOSING NOTES PT REMAINS RESTING WITH EYES CLOSED BUT AROUSES TO TOUCH, BLOOD SUGAR 492, 20 UNITS OF INSULIN GIVEN AND FOLLOWED HOSPITAL PROTOCOL. NO SIGNS OF HYPER GLYCEMIA NOTED. ALL DUE MEDS GIVEN AND ALL NEEDS MET. REFUSED TO HAVE LIDOCAINE PATCH , HE STATED HE'S NOT IN PAIN. REFUSED ALSO FOR MORNING CARE , WANTS TO SLEEP MORE. SNEED TO GRAVITY. TELE SR WITH BBB . KEPT HIM WARM AND COMFORTABLE AT ALL TIMES. ENDORSE TO AM NURSE FOR CONTINUITY OF CARE. PLACE CALL LIGHT AT REACH.
--- NOTE | 2017-02-05 08:00 | NUR ---
CASINO DEALER NOTES RECEIVED PATIENT IN BED, NO APPARENT DISTRESS NOTED, DENIES PAIN, DENIES SOB. ON TELE MONITORING SB 58. SNEED CATH DRAINING WELL, CIRA IV LINE PATENT. ALL NEEDS MET, KEPT CLEAN AND DRY, CALL LIGHT WITHIN REACH.
[2017-02-05] MEDS ORDERED: LINAGLIPTIN 5 MG TABLET PO SCH (09:00)
[2017-02-05] MEDS: AMIODARONE HCL 200 MG TABLET PO SCH (09:00)
[2017-02-05] MEDS: NITROGLYCERIN PACKET 1 GM PACKET TD SCH ×2 (09:00→21:00)
[2017-02-05] MEDS: VITAMINS A AND D 56.7 GM TUBE TP SCH (09:13)
[2017-02-05] MEDS: BENEFIBER 4 GM 1 EA PACKET PO SCH ×2 (09:13→17:51)
[2017-02-05] MEDS: HYDROGEL DRESSING 90 GM TUBE TP SCH (09:13)
[2017-02-05] MEDS: UREA 10% -AHA 4% CREAM 57 GM TUBE TP SCH ×2 (09:14→17:59)
[2017-02-05] MEDS: Z GUARD REMEDY 2 OZ OINT TP SCH (09:14)
[2017-02-05] MEDS: PANTOPRAZOLE 40 MG TABLET.DR PO SCH (09:15)
[2017-02-05] MEDS: ZINC SULFATE 220 MG CAPSULE PO SCH (09:15)
[2017-02-05] MEDS: FERROUS SULFATE (325 MG) 325 MG/TAB TABLET PO SCH (09:15)
[2017-02-05] MEDS: LACTOBACILLUS RHAMNOSUS GG 1 EACH CAP.SPRINK PO SCH ×2 (09:15→17:52)
[2017-02-05] MEDS: GABAPENTIN 300 MG CAPSULE PO SCH ×2 (09:15→17:52)
[2017-02-05] MEDS: GLIMEPIRIDE 4 MG TABLET PO SCH (09:15)
[2017-02-05] MEDS: methylPREDNISolone SOD SUCC 125 MG/2ML VIAL IV SCH (09:16)
[2017-02-05] MEDS: INSULIN DETEMIR 100 UNIT/ML CARTRIDGE SQ SCH ×2 (09:20→18:20)
[2017-02-05] MEDS: ASCORBIC ACID 500 MG TABLET PO SCH (09:24)
[2017-02-05] MEDS: MULTIVITAMINS,THERAGRAN 1 UDTAB TABLET PO SCH (09:30)
[2017-02-05] MEDS: LEVOFLOXACIN 500 MG /D5W 100ML 500 MG in PREMIX 1 EA IV SCH (09:34)
[2017-02-05] MEDS ORDERED: DEXTROSE 50%-WATER 50 ML DISP.SYRIN IV PRN (11:30)
[2017-02-05] MEDS ORDERED: SODIUM POLYSTYRENE SULFONATE 15 G/60 ML BOTTLE PO ONE (11:30)
--- NOTE | 2017-02-05 12:05 | NUR ---
SERVICE CENTER COORDINATOR NOTES NOTIFIED DR VELASQUEZ OPF BS OF 497 WITH NEW ORDERS FOR LEVEMIR 25 UNITS NOW
[2017-02-05] MEDS ORDERED: INSULIN DETEMIR 100 UNIT/ML CARTRIDGE SQ STA (12:37)
--- NOTE | 2017-02-05 13:00 | NUR ---
RE TELE NOTES PATIENT WITH PLACEMENT OF IJ HD CATH, TOLERATED PROCEDURE WELL.
--- NOTE | 2017-02-05 14:25 | NUR ---
VIOLIN TEACHER CLOSING NOTES TRANSFERRED PATIENT IN BED, IN STABLE CONDITION TO JOSEPH, REPORT GIVEN TO PAOLA ORTIZ. PATIENT AWAKE AND VERBALLY RESPONSIVE, NO APPARENT DISTRESS NOTED, DENIES PAIN, DENIES SOB. ON 2 L O2 VIA NC CANULA SATURATING WELL. PATIENT WITH RIGHT IJ HD CATH INSERTION AND ROHAN MID LINE INSERTION. DR VELASQUEZ AWARE OF BS OF 497, 25 UNITS OF LEVEMIR GIVEN AND 20 UNITS OF REGULAR INSULIN GIVEN. INVENTORY LIST REVIEWED, PATIENT HAS 6,080 DOLLARS. COUNTED MONEY WITH RECEIVING RN. PATIENT ADVISED TO KEEP THE MONEY IN THE SAFE, BUT HER REFUSED. PATIENT INSISTS ON HAVING IT AT BED SIDE. ALL NEEDS MET, KEPT CLEAN AND DRY.
--- NOTE | 2017-02-05 14:30 | NUR ---
RN NOTES PT HAS 6080 DOLLARS ALL IN GARVIN AT THE BEDSIDE, REFUSED TO LOCK IT IN SAFETY BOX.
--- NOTE | 2017-02-05 14:30 | NUR ---
RN NOTES PT RECEIVED BY BARIATRIC BED FROM 3W IN ROOM 118-2. PT IS A/O X3 RESPIRATIONS EVEN AND UNLABORED ON 2L NASAL CANNULA SATING AT 98% SR ON TELE WITH BBB IN THE 70S. CIRA 20 GAUGE IV WITH SMALL AMOUNT OF OOZING NOTED, RUSSEL DCED. DIGGS MIDLINE DRESSING DRY AND INTACT. RIGHT UP NECK HD CATH, DRY AND INTACT. SNEED DRAINING TO GRAVITY. PT ON CARDIAC DIET. SIDE RAILS UP X3, CALL LIGHT WITHIN REACH, BED LOCKED AND IN LOWEST POSITION.
--- NOTE | 2017-02-05 14:51 | NUR ---
CHEST XRAY TO BE DONE AROUND 1700 AFTER DIALYSIS, RN IS AWARE.
[2017-02-05 16:19] LABS: CALCIUM, SERUM 7.8 mg/dL (8.5-10.1); CARBON DIOXIDE 26 mmol/L (21-32); CHLORIDE 99 mmol/L (98-107); CREATININE 4.1 mg/dL (0.6-1.3); POTASSIUM 4.3 mmol/L (3.5-5.1); SODIUM SERUM 134 mmol/L (136-145)
[2017-02-05 16:20] LABS: UREA NITROGEN, BLOOD 84 mg/dL (7-18)
[2017-02-05 16:23] LABS: GLUCOSE 392 mg/dL (74-106)
[2017-02-05] MEDS ORDERED: INSULIN DETEMIR 100 UNIT/ML CARTRIDGE SQ SCH (17:00)
--- NOTE | 2017-02-05 17:00 | NUR ---
RN NOTES DR VELASQUEZ NOTIFIED OF BS 412. PT HAS NO HYPERGLYCEMIA SYMPTOMS. 2100 LEVEMIR GIVEN AT [address] REYES ORDER. PT ALSO RECEIVED 20 UNITS OF SLIDING SCALE COVERAGE. WILL CONTINUE TO MONITOR.
[2017-02-05] MEDS ORDERED: VANCOMYCIN 1 GM in IV D5W 250 ML IV ONE (18:00)
--- NOTE | 2017-02-05 18:00 | NUR ---
RN NOTES PT REMAINS IN STABLE CONDITION. NO SIGNIFICANT CHANGES NOTED DURING THE SHIFT.
--- NOTE | 2017-02-05 20:00 | NUR ---
JOSEPH RN NOTES RECEIVED PTS ON BED AWAKE AND RESPONSIVE , ON TELE ON SR -68, IST DEGREE BLOCK,BBB, NO SOB NO DISTRESS NO C/O OF PAIN NOTED AT THIS TIME .ON O2 AT 2LITERS VIA NC SATING 96%, V/S STABLE AFEBRILE , ALL DUE MEDS GIVEN ORDERED ALL NEEDS ATTENDED TOO CALL LIGHT WITH IN REACH , HOB ELEVATED FOR ASPIRATION PRECAUTION , WITH LEFT UPPER ARM MID LINE INTACT AND PATENT , RIGHT NECK HD ACCESS , NO BLEEDING NOTED.KEPT PTS CLEAN DRY AND COMFORTABLE .WILL CONTINUE TO MONITOR PTS.
--- NOTE | 2017-02-05 21:00 | NUR ---
JOSEPH RN NOTES BLOOD SUGAR FOR 9PM IS 428MG/DL -20 UNITS OF REGULAR INSULIN GIVEN ADN MD INFORMED. WILL CHECK AGAIN AT 1AM. ALL DUE MED GIVEN EXCEPT NITROBID D/T BLOOD PRESSURE 90/40, WILL CONTINUE TO MONITOR PTS.
[2017-02-05] MEDS: ATORVASTATIN 10 MG TABLET PO SCH (21:58)
[2017-02-06] VITALS: BP 102/39
[2017-02-06] MEDS: INSULIN REGULAR, HUMAN 100 UNIT/ML 3 ML VIAL SQ PRN ×5 (00:53→21:49)
[2017-02-06] MEDS: BLOOD SUGAR DIAGNOSTIC 1 EACH STRIP IN SCH ×6 (00:55→21:47)
--- NOTE | 2017-02-06 00:58 | NUR ---
JOSEPH RN NOTES BLOOD SUGAR FOR 1AM IS 483 MG/DL=20 UNITS OF REGULAR INSULIN GIVEN PER SLIDING SCALE, MD MADE AWARE.
--- NOTE | 2017-02-06 01:25 | NUR ---
JOSEPH RN NOTES BLOOD SUGAR AT 125AM IS 393MG/DL (TRENDING DOWN) MD MADE AWARE.WILL CHECK BLOOD SUGAR AGAIN AT 5AM.WILL CONTINUE TO MONITOR DANAY CHARGE NURSE MADE AWARE.
[2017-02-06 04:00] VITALS: BP_SYST 105; BP_DIAS 33; BP_DIAS 40
[2017-02-06] MEDS: LIDOCAINE 5% (PATCH) 1 EA PATCH TP SCH (05:08)
--- NOTE | 2017-02-06 05:25 | NUR ---
JOSEPH RN NOTES BLOOD SUGAR FOR 5AM IS 389MG/DL =20 UNITS OF REGULAR INSULIN GIVEN PER SLIDING SCALE , PTS ON PO , WILL CHECK BS AGAIN IN AM
[2017-02-06 06:21] LABS: BASOPHILS # (AUTO) 0.2 /CMM (0.0-0.2); BASOPHILS % (AUTO) 1.1 % (0.0-2.0); EOSINOPHILS # (AUTO) 0.1 /CMM (0.0-0.7); EOSINOPHILS % (AUTO) 0.6 % (0.0-6.0); HEMATOCRIT 27 % (39-51); HEMOGLOBIN 8.7 g/dL (13.5-17.5); LYMPHOCYTES # (AUTO) 0.4 /CMM (0.8-4.8); LYMPHOCYTES % (AUTO) 2.4 % (20.0-44.0); MEAN CORPUSCULAR HEMOGLOBIN 25 PG (26.0-33.0); MEAN CORPUSCULAR HGB CONC 32 g/dl (31.0-36.0); MEAN CORPUSCULAR VOLUME 79 fL (80-96); MONOCYTES # (AUTO) 1.3 /CMM (0.1-1.30); MONOCYTES % (AUTO) 8.2 % (2.0-12.0); NEUTROPHILS # (AUTO) 14.2 /CMM (1.8-8.9); NEUTROPHILS % (AUTO) 87.7 % (43.0-81.0); PLATELET COUNT (AUTO) 222 /CMM (150-450); RDW COEFFICIENT OF VARIATION 18.3 (11.5-15.0); RED BLOOD CELL COUNT(AUTO) 3.45 MIL/uL (4.5-6.0); WHITE BLOOD COUNT (AUTO) 16.2 K/uL (4.3-11.0)
--- NOTE | 2017-02-06 06:27 | NUR ---
JOSEPH RN NOTES PTS ON BED AWAKE AND RESPONSIVE , V/S STABLE AFEBRILE , NO SIGNIFICANT CHANGE NOTED ,WILL ENDORSE TO RN DAY SHIFT FOR CONTINUITY OF CARE.
[2017-02-06 06:59] LABS: BAND % (MANUAL) 1 % (0.0-5.0); LYMPHOCYTES % (MANUAL) 1 % (16-48); MONOCYTES % (MANUAL) 5 % (0-11.0); NEUTROPHILS % (MANUAL) 93 (42-76)
--- NOTE | 2017-02-06 07:30 | NUR ---
RN NOTES RECEIVED PT RESTING IN BED, ASLEEP AT THIS TIME. HOB ELEVATED. ON O2@2LPM VIA NC, NO SOB NOTED. ON TELE MONITORING SHOWS 1ST DEBREE AV BLOCK WITH BBB HR 61, NO NOTED DISCOMFORT AT THIS TIME .LEFT UPPER ARM MID LINE INTACT AND PATENT, FLUSHED WITH NS. S/P RIGHT IJ DUSTIN CATH INSERTION YESTERDAY FOR HD ACCESS, DRESSING INTACT, NO BLEEDING NOTED. KEPT PT CLEAN DRY AND COMFORTABLE. CALL LIGHT WITHIN REACH, WILL CONTINUE TO MONITOR.
[2017-02-06 08:00] VITALS: BP 91/37
[2017-02-06] MEDS: AMIODARONE HCL 200 MG TABLET PO SCH (09:00)
[2017-02-06 10:00] LABS: CALCIUM, SERUM 7.9 mg/dL (8.5-10.1); CARBON DIOXIDE 27 mmol/L (21-32); CHLORIDE 100 mmol/L (98-107); CREATININE 3.6 mg/dL (0.6-1.3); GLUCOSE 302 mg/dL (74-106); MAGNESIUM 1.9 mg/dL (1.8-2.4); POTASSIUM 4.4 mmol/L (3.5-5.1); SODIUM SERUM 136 mmol/L (136-145); VANCOMYCIN,RANDOM 11 ug/ml (18-26)
[2017-02-06 10:02] LABS: UREA NITROGEN, BLOOD 85 mg/dL (7-18)
--- NOTE | 2017-02-06 10:05 | NUR ---
mining support worker informed charge nurse Soon that patient needs a psych consult.
[2017-02-06] MEDS: BENEFIBER 4 GM 1 EA PACKET PO SCH ×2 (11:04→17:37)
[2017-02-06] MEDS: LACTOBACILLUS RHAMNOSUS GG 1 EACH CAP.SPRINK PO SCH ×2 (11:04→17:38)
[2017-02-06] MEDS: GABAPENTIN 300 MG CAPSULE PO SCH ×2 (11:04→17:38)
[2017-02-06] MEDS: FERROUS SULFATE (325 MG) 325 MG/TAB TABLET PO SCH (11:05)
[2017-02-06] MEDS: ZINC SULFATE 220 MG CAPSULE PO SCH (11:05)
[2017-02-06] MEDS: PANTOPRAZOLE 40 MG TABLET.DR PO SCH (11:05)
[2017-02-06] MEDS: ASCORBIC ACID 500 MG TABLET PO SCH (11:05)
[2017-02-06] MEDS: HYDROGEL DRESSING 90 GM TUBE TP SCH (11:06)
[2017-02-06] MEDS: NITROGLYCERIN PACKET 1 GM PACKET TD SCH ×2 (11:06→21:00)
[2017-02-06] MEDS: MULTIVITAMINS,THERAGRAN 1 UDTAB TABLET PO SCH (11:06)
[2017-02-06] MEDS: Z GUARD REMEDY 2 OZ OINT TP SCH (11:07)
[2017-02-06] MEDS: UREA 10% -AHA 4% CREAM 57 GM TUBE TP SCH ×2 (11:09→17:38)
[2017-02-06] MEDS: INSULIN DETEMIR 100 UNIT/ML CARTRIDGE SQ SCH ×2 (11:09→21:49)
[2017-02-06] MEDS: VITAMINS A AND D 56.7 GM TUBE TP SCH (11:10)
--- NOTE | 2017-02-06 11:30 | NUR ---
RN NOTES DR VELASQUEZ AT BEDSIDE, PT WAS SEEN AND EVALUATED. PLAN OF CARE WAS DISCUSSED WITH PT. PT VERBALIZED UNDERSTANDING
[2017-02-06 12:00] VITALS: BP_SYST 105; BP_SYST 95; BP_DIAS 32; BP_DIAS 40
[2017-02-06 12:23] LABS: *SPE A/G RATIO 0.5 (0.7-1.7); *SPE ALBUMIN 1.9 g/dL (2.9-4.4); *SPE ALPHA-1-GLOBULIN 0.4 g/dL (0.0-0.4); *SPE ALPHA-2-GLOBULIN 1.1 g/dL (0.4-1.0); *SPE BETA GLOBULIN 0.9 g/dL (0.7-1.3); *SPE GLOBULIN, TOTAL 4.1 g/dL (2.2-3.9); *SPE M-SPIKE Not Observed g/dL (Not Observed); *SPEGAMMA GLOBULIN 1.7 g/dL (0.4-1.8); PTH, INTACT 74 pg/mL (15-65)
[2017-02-06] MEDS ORDERED: VANCOMYCIN 500 MG in IV D5W 100 ML IV PRN (14:00)
[2017-02-06 16:00] VITALS: BP 95/39
[2017-02-06] MEDS ORDERED: VANCOMYCIN 1 GM in IV D5W 250 ML IV ONE (16:00)
--- NOTE | 2017-02-06 19:19 | NUR ---
RN NOTES PT RESTING IN BED, NO ACUTE CHANGE IN CONDITION. NO PAIN/DISCOMFORT AT THIS TIME. ALL DUE MEDS GIVEN, NEEDS ATTENDED. MONITORED PT ACCORDINGLY. ENDORSED TO FORECAST ANALYST RN FOR CONTINUITY OF CARE
--- NOTE | 2017-02-06 19:25 | NUR ---
TELE/RN NOTES RECEIVED PT. LYING IN BED. AWAKE, ALERT AND ORIENTED X3. BREATHING EVEN AND UNLABORED ON 2LPM O2 VIA NC. NO SOB, RESPIRATORY DISTRESS OR COMPLAINTS OF PAIN NOTED AT THIS TIME. PT. WITH EXTERNAL ENVIRONMENTAL STUDIES FACULTY MEMBER PRESENT AND INTACT. CURRENT RHYTHM = SINUS RHYTHM WITH FIRST DEGREE BLOCK AND BBB HR 70. PT. WITH LEFT UPPER ARM MIDLINE PRESENT, PATENT AND INTACT. PT. WITH RIGHT IJ DUSTIN CATH PRESENT AND INTACT, NO BLEEDING NOTED. PT. WITH SNEED CATHETER PRESENT, PATENT AND INTACT DRAINING CLEAR YELLOW URINE. BED IN LOWEST POSITION, SIDE RAILS UP X3, CALL LIGHT WITHIN REACH, WILL CONTINUE TO MONITOR.
[2017-02-06 20:00] VITALS: BP_SYST 92; BP_DIAS 35; BP_DIAS 55
[2017-02-06] MEDS: ATORVASTATIN 10 MG TABLET PO SCH (21:49)
[2017-02-06] MEDS: ZOLPIDEM TARTRATE 5 MG TABLET PO PRN (22:04)
[2017-02-07] VITALS: BP 94/36
[2017-02-07] MEDS: BLOOD SUGAR DIAGNOSTIC 1 EACH STRIP IN SCH ×6 (01:52→21:27)
[2017-02-07] MEDS: INSULIN REGULAR, HUMAN 100 UNIT/ML 3 ML VIAL SQ PRN ×2 (01:54→05:43)
[2017-02-07 04:00] VITALS: BP 104/42
[2017-02-07] MEDS: LIDOCAINE 5% (PATCH) 1 EA PATCH TP SCH (05:44)
--- NOTE | 2017-02-07 06:24 | NUR ---
TELE/RN NOTES PT. LYING IN BED RESTING. BREATHING EVEN AND UNLABORED ON 2LPM O2 VIA NC. NO SOB, RESPIRATORY DISTRESS OR COMPLAINTS OF PAIN NOTED AT THIS TIME. PT. WITH EXTERNAL SENIOR QA AUTOMATION ENGINEER PRESENT AND INTACT. CURRENT RHYTHM = SINUS RHYTHM WITH FIRST DEGREE BLOCK AND BBB HR 65. PT. WITH LEFT UPPER ARM MIDLINE PRESENT, PATENT AND INTACT. PT. WITH RIGHT IJ DUSTIN CATH PRESENT AND INTACT, NO BLEEDING NOTED. PT. WITH SNEED CATHETER PRESENT, PATENT AND INTACT DRAINING CLEAR YELLOW URINE. ALL PT. NEEDS MET. PT. OFFLOADED. TURNED AND REPOSITIONED Q2H AND NEEDED. BED IN LOWEST POSITION, SIDE RAILS UP X3, CALL LIGHT WITHIN REACH, WILL ENDORSE TO DAYSHIFT NURSE FOR CONTINUITY OF CARE.
--- NOTE | 2017-02-07 07:05 | NUR ---
RN INITIAL NOTE REPORT RECEIVED FROM TALISHA ORTIZ PM SHIFT. PT A/O X3. TELE SR 1ST DEGREE BLOCK BBB HR 70'S. F/C INTACT. IV ROHAN MIDLINE, RIJ HD CATH. PT RESTING IN BED. NC 2L . WILL CONTINUE TO MONITOR. ALL SAFETY MEASURES IN PLACE.
[2017-02-07 07:19] LABS: BASOPHILS % (AUTO) 0.2 % (0.0-2.0); EOSINOPHILS % (AUTO) 0.3 % (0.0-6.0); HEMATOCRIT 28 % (39-51); LYMPHOCYTES # (AUTO) 0.7 /CMM (0.8-4.8); LYMPHOCYTES % (AUTO) 6.6 % (20.0-44.0); MEAN CORPUSCULAR HEMOGLOBIN 25 PG (26.0-33.0); MEAN CORPUSCULAR HGB CONC 32 g/dl (31.0-36.0); MEAN CORPUSCULAR VOLUME 79 fL (80-96); MONOCYTES # (AUTO) 0.6 /CMM (0.1-1.30); MONOCYTES % (AUTO) 5.6 % (2.0-12.0); NEUTROPHILS # (AUTO) 9.5 /CMM (1.8-8.9); NEUTROPHILS % (AUTO) 87.3 % (43.0-81.0); PLATELET COUNT (AUTO) 218 /CMM (150-450); RDW COEFFICIENT OF VARIATION 17.9 (11.5-15.0); RED BLOOD CELL COUNT(AUTO) 3.57 MIL/uL (4.5-6.0); WHITE BLOOD COUNT (AUTO) 10.8 K/uL (4.3-11.0)
[2017-02-07] MEDS: PANTOPRAZOLE 40 MG TABLET.DR PO SCH (07:30)
[2017-02-07 07:48] LABS: CALCIUM, SERUM 7.5 mg/dL (8.5-10.1); CARBON DIOXIDE 28 mmol/L (21-32); CHLORIDE 101 mmol/L (98-107); CREATININE 3.4 mg/dL (0.6-1.3); GLUCOSE 159 mg/dL (74-106); MAGNESIUM 1.9 mg/dL (1.8-2.4); PHOSPHORUS 6.3 mg/dL (2.5-4.9); POTASSIUM 3.5 mmol/L (3.5-5.1); SODIUM SERUM 138 mmol/L (136-145)
[2017-02-07 07:49] LABS: UREA NITROGEN, BLOOD 84 mg/dL (7-18)
[2017-02-07 08:00] VITALS: BP 95/57
[2017-02-07] MEDS: GABAPENTIN 300 MG CAPSULE PO SCH ×2 (08:14→16:31)
[2017-02-07] MEDS: FERROUS SULFATE (325 MG) 325 MG/TAB TABLET PO SCH (08:14)
[2017-02-07] MEDS: ASCORBIC ACID 500 MG TABLET PO SCH (08:14)
[2017-02-07] MEDS: ZINC SULFATE 220 MG CAPSULE PO SCH (08:14)
[2017-02-07] MEDS: LACTOBACILLUS RHAMNOSUS GG 1 EACH CAP.SPRINK PO SCH ×2 (08:14→16:32)
[2017-02-07] MEDS: MULTIVITAMINS,THERAGRAN 1 UDTAB TABLET PO SCH (08:20)
[2017-02-07] MEDS: HYDROGEL DRESSING 90 GM TUBE TP SCH (08:22)
[2017-02-07] MEDS: UREA 10% -AHA 4% CREAM 57 GM TUBE TP SCH ×2 (08:22→16:32)
[2017-02-07] MEDS: VITAMINS A AND D 56.7 GM TUBE TP SCH (08:23)
[2017-02-07] MEDS: AMIODARONE HCL 200 MG TABLET PO SCH (08:24)
[2017-02-07] MEDS: BENEFIBER 4 GM 1 EA PACKET PO SCH ×2 (08:24→17:00)
[2017-02-07] MEDS: NITROGLYCERIN PACKET 1 GM PACKET TD SCH ×2 (08:24→21:27)
[2017-02-07] MEDS: Z GUARD REMEDY 2 OZ OINT TP SCH (08:24)
[2017-02-07] MEDS: INSULIN DETEMIR 100 UNIT/ML CARTRIDGE SQ SCH ×2 (08:34→21:30)
--- NOTE | 2017-02-07 09:25 | NUR ---
RN NOTE SPOKE TO DR. MCKINLEY PT C/O MIGRAINE. AWAITING ORDER.
--- NOTE | 2017-02-07 10:00 | NUR ---
RN NOTE CALLED DR. VELASQUEZ REGARDING PT MIGRAINE. ORDERED ULTRAM 50 MG Q6 PRN. MD AWARE OF HD AND HYPOTENSION.
[2017-02-07] MEDS: LEVOFLOXACIN 500 MG /D5W 100ML 500 MG in PREMIX 1 EA IV SCH (10:19)
[2017-02-07] MEDS ORDERED: TRAMADOL HCL 50 MG TABLET PO PRN (10:30)
[2017-02-07 16:00] VITALS: BP_SYST 136; BP_SYST 94; BP_SYST 95; BP_DIAS 42; BP_DIAS 57; BP_DIAS 68
[2017-02-07] MEDS: RIVAROXABAN 10 MG TABLET PO SCH (16:41)
--- NOTE | 2017-02-07 19:06 | NUR ---
RN CLOSING NOTE REPORT GIVEN TO JUAN PABLO ORTIZ PM SHIFT. PT A/O X3. PT MS. F/C INTACT. IV ROHAN MIDLINE, RIJ HD CATH. PT RESTING IN BED. NC 2L . PAIN 0/10. MILK O MAG GIVEN TO PT. ALL ORDERS CARRIED OUT. ALL SAFETY MEASURES IN PLACE.
--- NOTE | 2017-02-07 19:50 | NUR ---
MS RN NOTE: PATIENT RESTING IN BED, NO ACUTE DISTRESS NOTED. BREATHING EVEN AND UNLABORED, NO SOB NOTED. MIDLINE TO LEFT UPPER ARM IN PLACE. HD SITE TO [facility] IN PLACE. SNEED IN PLACE, DRAINING CLEAR YELLOW URINE. BED LOCKED AND IN LOWEST POSITION, CALL LIGHT IN REACH. WILL CONTINUE TO MONITOR.
[2017-02-07 20:00] VITALS: BP 103/52
[2017-02-07] MEDS: ATORVASTATIN 10 MG TABLET PO SCH (21:27)
--- NOTE | 2017-02-07 21:30 | NUR ---
MS RN NOTE: UNABLE TO SCAN PATIENT ID BAND, GIVEN ERROR ID MESSAGE. EVENING MEDICATIONS GIVEN ORDERED PER MD. WILL CONTINUE TO MONITOR.
--- NOTE | 2017-02-07 22:00 | NUR ---
MS RN NOTE: PATIENT BLOOD SUGAR LEVEL 96 MG/DL, PATIENT TO RECEIVE LEVEMIR 25 UNITS ORIN DAVALOS ORDER. PATIENT DENIES S/S OF HYPER/HYPOGLYCEMIA AT THIS TIME. SNACKS AT BEDSIDE. PATIENT ALSO COMPLAINS OF CONSTIPATION, MOM GIVEN EARLIER TODAY WITHOUT RESULTS. DULCOLAX SUPP GIVEN WITH SUCCESSFUL BOWEL MOVEMENT. WILL CONTINUE TO MONITOR.
[2017-02-08 01:00] VITALS: BP 103/52
[2017-02-08] MEDS: BLOOD SUGAR DIAGNOSTIC 1 EACH STRIP IN SCH ×6 (01:02→20:11)
--- NOTE | 2017-02-08 01:04 | NUR ---
MS RN NOTE: PATIENT BLOOD SUGAR LEVEL 91 MG/DL, NO INSULIN NEEDED PER SLIDING SCALE. NO S/S OF HYPOGLYCEMIA NOTED. WILL CONTINUE TO MONITOR.
[2017-02-08 03:53] VITALS: BP 102/55
[2017-02-08] MEDS: LIDOCAINE 5% (PATCH) 1 EA PATCH TP SCH (05:14)
--- NOTE | 2017-02-08 06:12 | NUR ---
MS RN NOTE: PATIENT RESTING IN BED, NO ACUTE DISTRESS NOTED. BREATHING EVEN AND UNLABORED, NO SOB NOTED. MIDLINE TO LEFT UPPER ARM IN PLACE. HD SITE TO [facility] IN PLACE. SNEED IN PLACE, DRAINING CLEAR YELLOW URINE. PATIENT BLOOD SUGAR LEVEL 79 MG/DL, NO INSULIN NEEDED PER SLIDING SCALE. NO S/S OF HYPER/HYPOGYLCEMIA NOTED. BED LOCKED AND IN LOWEST POSITION, CALL LIGHT IN REACH. WILL ENDORSE TO DAY NURSE TO CONTINUE WITH PLAN OF CARE.
[2017-02-08 06:16] LABS: BASOPHILS # (AUTO) 0.1 /CMM (0.0-0.2); BASOPHILS % (AUTO) 0.8 % (0.0-2.0); EOSINOPHILS # (AUTO) 0.1 /CMM (0.0-0.7); EOSINOPHILS % (AUTO) 0.5 % (0.0-6.0); HEMATOCRIT 27 % (39-51); HEMOGLOBIN 8.6 g/dL (13.5-17.5); LYMPHOCYTES # (AUTO) 0.9 /CMM (0.8-4.8); LYMPHOCYTES % (AUTO) 5.5 % (20.0-44.0); MEAN CORPUSCULAR HEMOGLOBIN 26 PG (26.0-33.0); MEAN CORPUSCULAR HGB CONC 32 g/dl (31.0-36.0); MEAN CORPUSCULAR VOLUME 79 fL (80-96); MONOCYTES # (AUTO) 0.5 /CMM (0.1-1.30); NEUTROPHILS # (AUTO) 14.1 /CMM (1.8-8.9); NEUTROPHILS % (AUTO) 90.2 % (43.0-81.0); PLATELET COUNT (AUTO) 204 /CMM (150-450); RDW COEFFICIENT OF VARIATION 17.4 (11.5-15.0); RED BLOOD CELL COUNT(AUTO) 3.36 MIL/uL (4.5-6.0); WHITE BLOOD COUNT (AUTO) 15.6 K/uL (4.3-11.0)
--- NOTE | 2017-02-08 06:17 | NUR ---
MS RN NOTE: PATIENT DAILY WEIGHT 377LBS WITH BARIMAXX BED PUMP ON, BUT WEIGHT WITHOUT PUMP ON IS 360 LBS. WILL ENDORSE TO DAY NURSE.
[2017-02-08 06:43] LABS: CALCIUM, SERUM 7.5 mg/dL (8.5-10.1); CARBON DIOXIDE 29 mmol/L (21-32); CHLORIDE 103 mmol/L (98-107); CREATININE 3.5 mg/dL (0.6-1.3); GLUCOSE 86 mg/dL (74-106); MAGNESIUM 2.1 mg/dL (1.8-2.4); PHOSPHORUS 6.9 mg/dL (2.5-4.9); POTASSIUM 3.9 mmol/L (3.5-5.1); SODIUM SERUM 139 mmol/L (136-145)
[2017-02-08 06:45] LABS: UREA NITROGEN, BLOOD 95 mg/dL (7-18)
--- NOTE | 2017-02-08 07:19 | NUR ---
ms rn initial notes Received patient in bed, awake, head of bed elevated, no SOB or distress noted. ON 02 @ 2lpm via NC and tolerated well. Alert and oriented x 3, verbally responsive and able to make needs known. Muniz in placed attached to drainage bag. right do cath for HD. IV intact and patent with IVF infusing well. Kept patient clean and comfortable in bed, call light with in patient reach, will continue to monitor accordingly.
[2017-02-08] MEDS: PANTOPRAZOLE 40 MG TABLET.DR PO SCH (07:33)
[2017-02-08 08:00] VITALS: BP 102/36
[2017-02-08] MEDS: BENEFIBER 4 GM 1 EA PACKET PO SCH ×2 (08:37→16:58)
[2017-02-08] MEDS: INSULIN REGULAR, HUMAN 100 UNIT/ML 3 ML VIAL SQ PRN ×4 (08:39→20:09)
[2017-02-08] MEDS: LACTOBACILLUS RHAMNOSUS GG 1 EACH CAP.SPRINK PO SCH ×2 (08:41→17:03)
[2017-02-08] MEDS: INSULIN DETEMIR 100 UNIT/ML CARTRIDGE SQ SCH ×2 (08:41→20:07)
[2017-02-08] MEDS: GABAPENTIN 300 MG CAPSULE PO SCH ×2 (08:41→17:04)
[2017-02-08] MEDS: ASCORBIC ACID 500 MG TABLET PO SCH (08:42)
[2017-02-08] MEDS: AMIODARONE HCL 200 MG TABLET PO SCH (08:42)
[2017-02-08] MEDS: FERROUS SULFATE (325 MG) 325 MG/TAB TABLET PO SCH (08:42)
[2017-02-08] MEDS: NITROGLYCERIN PACKET 1 GM PACKET TD SCH ×2 (08:43→20:13)
[2017-02-08] MEDS: Z GUARD REMEDY 2 OZ OINT TP SCH (08:44)
[2017-02-08] MEDS: HYDROGEL DRESSING 90 GM TUBE TP SCH (08:44)
[2017-02-08] MEDS: VITAMINS A AND D 56.7 GM TUBE TP SCH (08:45)
[2017-02-08] MEDS: UREA 10% -AHA 4% CREAM 57 GM TUBE TP SCH ×2 (08:45→17:07)
[2017-02-08] MEDS: MULTIVITAMINS,THERAGRAN 1 UDTAB TABLET PO SCH (08:45)
[2017-02-08] MEDS: ZINC SULFATE 220 MG CAPSULE PO SCH (08:46)
--- NOTE | 2017-02-08 09:00 | NUR ---
ms rn notes Blood sugar checked 72 no coverage given. [place] juice given to patient and tolerated well.
[2017-02-08] MEDS: HYDROCODONE/APAP 10/325MG 1 EA TABLET PO PRN ×2 (10:33→19:54)
--- NOTE | 2017-02-08 12:40 | NUR ---
ms rn notes Blood sugar checked 114 no coverage given. Will continue to monitor accordingly.
[2017-02-08 16:00] VITALS: BP 99/35
[2017-02-08] MEDS: RIVAROXABAN 10 MG TABLET PO SCH (17:03)
[2017-02-08 18:00] VITALS: BP 99/35
--- NOTE | 2017-02-08 19:12 | NUR ---
ms rn closing notes All needs provided, attended, and anticipated. Kept patient clean and comfortable in bed, call light with in patient reach, endorsed to next shift RN to continue care.
--- NOTE | 2017-02-08 19:20 | NUR ---
RN NOTES RECEIVED PT AWAKE ON BED. AOX3 ABLE TO MAKE KNOWN NEEDS. C/O OF PAIN AT SCALE OF 7/10. NO ACUTE RESP DISTRESS. AFEBRILE. IV SITE ON ROHAN MIDLINE INTACT AND PATENT WITH GOOD BLOOD RETURN. AND RIGHT DUSTIN CATH FOR HD DRESSING INTACT. OFFLOADED EXT WITH PILLOWS. REPOSITIONED PT COMFORTABLE. KEPT PT CLEAN AND COMFORTABLE IN BED. CALL LIGHT KEPT WITHIN EASY REACH. WILL CONTINUE TO MONITOR.
[2017-02-08 20:00] VITALS: BP 104/33
[2017-02-08] MEDS: ATORVASTATIN 10 MG TABLET PO SCH (21:01)
[2017-02-09] MEDS: BLOOD SUGAR DIAGNOSTIC 1 EACH STRIP IN SCH ×6 (01:47→21:04)
[2017-02-09 04:00] VITALS: BP 117/40
[2017-02-09] MEDS: LIDOCAINE 5% (PATCH) 1 EA PATCH TP SCH (06:12)
[2017-02-09 06:56] LABS: BASOPHILS # (AUTO) 0.1 /CMM (0.0-0.2); BASOPHILS % (AUTO) 0.5 % (0.0-2.0); EOSINOPHILS # (AUTO) 0.1 /CMM (0.0-0.7); EOSINOPHILS % (AUTO) 0.7 % (0.0-6.0); HEMATOCRIT 26 % (39-51); HEMOGLOBIN 8.4 g/dL (13.5-17.5); LYMPHOCYTES # (AUTO) 0.9 /CMM (0.8-4.8); LYMPHOCYTES % (AUTO) 6.7 % (20.0-44.0); MEAN CORPUSCULAR HEMOGLOBIN 26 PG (26.0-33.0); MEAN CORPUSCULAR HGB CONC 32 g/dl (31.0-36.0); MEAN CORPUSCULAR VOLUME 79 fL (80-96); MONOCYTES # (AUTO) 0.5 /CMM (0.1-1.30); MONOCYTES % (AUTO) 3.5 % (2.0-12.0); NEUTROPHILS # (AUTO) 12.4 /CMM (1.8-8.9); NEUTROPHILS % (AUTO) 88.6 % (43.0-81.0); PLATELET COUNT (AUTO) 181 /CMM (150-450); RDW COEFFICIENT OF VARIATION 17.6 (11.5-15.0); WHITE BLOOD COUNT (AUTO) 13.9 K/uL (4.3-11.0)
--- NOTE | 2017-02-09 07:04 | NUR ---
RN NOTES PATIENT ASLEEP WELL ON BED. NO ACUTE RESP DISTRESS. NO SIGNIFICANT CHANGE OF CONDITION NOTED. TOLERATED S/P HD WITHOUT ANY ASE NOTED. ALL NEEDS ATTENDED. ALL DUE MEDICINE TOLERATED WELL WITHOUT ASE. SKIN RE ASSESSMENT DONE PHOTO TAKEN. KEPT PT CLEAN AND DRY. WILL CONTINUE TO MONITOR LAB VALUES AND VS. WILL ENDORSED CONTINUITY OF CARE TO AM NURSE.
[2017-02-09 07:11] LABS: CALCIUM, SERUM 7.5 mg/dL (8.5-10.1); CARBON DIOXIDE 31 mmol/L (21-32); CHLORIDE 103 mmol/L (98-107); CREATININE 2.8 mg/dL (0.6-1.3); GLUCOSE 71 mg/dL (74-106); MAGNESIUM 2.1 mg/dL (1.8-2.4); PHOSPHORUS 5.1 mg/dL (2.5-4.9); POTASSIUM 3.8 mmol/L (3.5-5.1); SODIUM SERUM 140 mmol/L (136-145); UREA NITROGEN, BLOOD 69 mg/dL (7-18)
--- NOTE | 2017-02-09 07:30 | NUR ---
RN NOTES RECEIVED PT RESTING IN BED, AWAKE ALERT ORIENTES X3, HOB ELEVATED. ON O2@2LPM VIA NC, NO SOB NOTED. NO NOTED DISCOMFORT AT THIS TIME .LEFT UPPER ARM MID LINE INTACT AND PATENT, FLUSHED WITH NS. NOTED WITH RIGHT IJ DUSTIN CATH FOR HD ACCESS, DRESSING INTACT, NO BLEEDING NOTED. KEPT PT CLEAN DRY AND COMFORTABLE. CALL LIGHT WITHIN REACH, WILL CONTINUE TO MONITOR.
[2017-02-09 08:00] VITALS: BP 100/35
[2017-02-09] MEDS: BENEFIBER 4 GM 1 EA PACKET PO SCH ×2 (08:58→17:00)
[2017-02-09] MEDS: LEVOFLOXACIN 500 MG /D5W 100ML 500 MG in PREMIX 1 EA IV SCH (09:09)
[2017-02-09] MEDS: HYDROGEL DRESSING 90 GM TUBE TP SCH (09:09)
[2017-02-09] MEDS: Z GUARD REMEDY 2 OZ OINT TP SCH (09:09)
[2017-02-09] MEDS: ASCORBIC ACID 500 MG TABLET PO SCH (09:10)
[2017-02-09] MEDS: GABAPENTIN 300 MG CAPSULE PO SCH ×2 (09:10→17:27)
[2017-02-09] MEDS: MULTIVITAMINS,THERAGRAN 1 UDTAB TABLET PO SCH (09:10)
[2017-02-09] MEDS: NITROGLYCERIN PACKET 1 GM PACKET TD SCH ×2 (09:10→21:00)
[2017-02-09] MEDS: AMIODARONE HCL 200 MG TABLET PO SCH (09:10)
[2017-02-09] MEDS: LACTOBACILLUS RHAMNOSUS GG 1 EACH CAP.SPRINK PO SCH ×2 (09:10→17:27)
[2017-02-09] MEDS: FERROUS SULFATE (325 MG) 325 MG/TAB TABLET PO SCH (09:10)
[2017-02-09] MEDS: ZINC SULFATE 220 MG CAPSULE PO SCH (09:10)
[2017-02-09] MEDS: VITAMINS A AND D 56.7 GM TUBE TP SCH (09:11)
[2017-02-09] MEDS: UREA 10% -AHA 4% CREAM 57 GM TUBE TP SCH ×2 (09:12→17:30)
[2017-02-09] MEDS: PANTOPRAZOLE 40 MG TABLET.DR PO SCH (09:19)
[2017-02-09] MEDS: INSULIN DETEMIR 100 UNIT/ML CARTRIDGE SQ SCH ×2 (09:20→21:01)
[2017-02-09] MEDS: INSULIN REGULAR, HUMAN 100 UNIT/ML 3 ML VIAL SQ PRN ×4 (09:21→22:09)
[2017-02-09 11:09] LABS: HEPATITIS Be AB Negative (Negative)
[2017-02-09 16:00] VITALS: BP 95/40
[2017-02-09] MEDS: RIVAROXABAN 10 MG TABLET PO SCH (17:28)
[2017-02-09] MEDS: CIPROFLOXACIN HCL 0.3% 5 ML BOTTLE EACHEYE SCH (18:53)
--- NOTE | 2017-02-09 19:10 | NUR ---
RN NOTES RECEIVED PT ASLEEP WELL ON BED. AOX3 ABLE TO MAKE KNOWN NEEDS. DENIES PAIN. NO ACUTE RESP DISTRESS. AFEBRILE. IV SITE ON ROHAN MIDLINE INTACT AND PATENT WITH GOOD BLOOD RETURN. AND RIGHT DUSTIN CATH FOR HD DRESSING INTACT. OFFLOADED EXT WITH PILLOWS. REPOSITIONED PT COMFORTABLE. KEPT CLEAN AND COMFORTABLE IN BED. CALL LIGHT KEPT WITHIN EASY REACH. WILL CONTINUE TO MONITOR.
[2017-02-09 20:00] VITALS: BP 104/41
[2017-02-09 20:32] VITALS: BP 104/41
[2017-02-09] MEDS: ATORVASTATIN 10 MG TABLET PO SCH (21:06)
[2017-02-10] MEDS: ACETAMINOPHEN 325 MG TABLET PO PRN (00:17)
[2017-02-10] MEDS: CIPROFLOXACIN HCL 0.3% 5 ML BOTTLE EACHEYE SCH ×3 (00:18→18:10)
[2017-02-10] MEDS: INSULIN REGULAR, HUMAN 100 UNIT/ML 3 ML VIAL SQ PRN ×4 (00:28→21:34)
[2017-02-10] MEDS: BLOOD SUGAR DIAGNOSTIC 1 EACH STRIP IN SCH ×6 (00:32→21:30)
[2017-02-10 04:00] VITALS: BP 107/45
[2017-02-10] MEDS: LIDOCAINE 5% (PATCH) 1 EA PATCH TP SCH (05:07)
--- NOTE | 2017-02-10 06:09 | NUR ---
RN NOTES PT AT THIS TIME IS COMPLAINING OF CONGESTED NOSE, PAIN ALL OVER THE BODY AND TOOTHACHE. WHEN WOKE UP. CALLED AND LEFT A MESSAGE TO MD. PT MADE AWARE. SATING 97% IN 02 2LPM VIA NC REPOSITIONED PATIENT COMFORTABLE.ALL NEEDS ATTENDED. KEPT PT CLEAN AND DRY.ALL DUE MEDICINE GIVEN A S ORDERED AND TOLERATED WELL. REFUSED TO TAKE STRONG PAIN MEDICINE PER PATIENT HE FELT SHAKY WHEN HE TOOK IT. RISK AND BENEFITS EXPLAINED. PT VERBALIZED UNDERSTANDING. CALL LIGHT KEPT WITHIN EASY REACH. WILL ENDORSED CONTINUITY OF CARE TO AM NURSE.
[2017-02-10 06:25] LABS: CALCIUM, SERUM 7.5 mg/dL (8.5-10.1); CARBON DIOXIDE 30 mmol/L (21-32); CHLORIDE 105 mmol/L (98-107); CREATININE 2.9 mg/dL (0.6-1.3); GLUCOSE 84 mg/dL (74-106); POTASSIUM 4.1 mmol/L (3.5-5.1); SODIUM SERUM 140 mmol/L (136-145); UREA NITROGEN, BLOOD 70 mg/dL (7-18)
--- NOTE | 2017-02-10 07:53 | NUR ---
RN INITIAL NOTES PT IN IS BED, ON NC 2LPM, NO RESPIRATORY DISTRESS NOTED. A/O X3, ABLE TO MAKE NEEDS KNOWN. SNEED CATH IS PATENT AND DRAINING YELLOW URINE, ROHAN MIDLINE IS FLUSHED AND PATENT, COMPLAINED OF GUM ACHE, WILL INFORM MD. ON CARDIAC DIET. NO FEVER NOTED. CALL LIGHT WITHIN REACH. WILL CONTINUE TO MONITOR
[2017-02-10 08:00] VITALS: BP 115/38
[2017-02-10] MEDS: ZINC SULFATE 220 MG CAPSULE PO SCH (08:27)
[2017-02-10] MEDS: MULTIVITAMINS,THERAGRAN 1 UDTAB TABLET PO SCH (08:28)
[2017-02-10] MEDS: AMIODARONE HCL 200 MG TABLET PO SCH (08:28)
[2017-02-10] MEDS: PANTOPRAZOLE 40 MG TABLET.DR PO SCH (08:28)
[2017-02-10] MEDS: FERROUS SULFATE (325 MG) 325 MG/TAB TABLET PO SCH (08:28)
[2017-02-10] MEDS: GABAPENTIN 300 MG CAPSULE PO SCH ×2 (08:28→18:04)
[2017-02-10] MEDS: NITROGLYCERIN PACKET 1 GM PACKET TD SCH ×2 (08:29→21:00)
[2017-02-10] MEDS: ASCORBIC ACID 500 MG TABLET PO SCH (08:29)
[2017-02-10] MEDS: HYDROGEL DRESSING 90 GM TUBE TP SCH (08:30)
[2017-02-10] MEDS: Z GUARD REMEDY 2 OZ OINT TP SCH (08:31)
[2017-02-10] MEDS: UREA 10% -AHA 4% CREAM 57 GM TUBE TP SCH ×2 (08:32→18:10)
[2017-02-10] MEDS: VITAMINS A AND D 56.7 GM TUBE TP SCH (08:32)
[2017-02-10] MEDS: LACTOBACILLUS RHAMNOSUS GG 1 EACH CAP.SPRINK PO SCH ×2 (08:34→18:02)
[2017-02-10] MEDS: BENEFIBER 4 GM 1 EA PACKET PO SCH ×2 (08:34→17:00)
[2017-02-10] MEDS: INSULIN DETEMIR 100 UNIT/ML CARTRIDGE SQ SCH ×2 (08:42→21:32)
--- NOTE | 2017-02-10 10:58 | NUR ---
RN NOTES PT COMPLAINED OF TOOTH/GUM ACHE, OFFERED TYLENOL, BUT PT WANTED AFTER HD. AND REQUESTED FOR NASAL SPRAY FOR HIS CONGESTION, INFORMED DR NUNN'S PA AND WILL FOLLOW WITH MD DURING HIS ROUNDS
[2017-02-10 16:00] VITALS: BP 104/49
--- NOTE | 2017-02-10 16:06 | NUR ---
PT TOO LARGE & TOO HEAVY FOR CT ABD/PEL. RN IS AWARE. TO;D RN TO TELL ORDERING DR. & CANCEL THE ORDER.
[2017-02-10] MEDS: RIVAROXABAN 10 MG TABLET PO SCH (18:04)
--- NOTE | 2017-02-10 19:48 | NUR ---
RN CLOSING NOTES PT IS RESTING IN BED COMFORTABLY, NO COMPLAINTS OF PAIN, TOLERATING NASAL CANNULA ON 2LPM. WILL HAVE AND PERMACATH PLACEMENT TOMORROW, IV SITE IS CLEAN NO S/SX OF INFECTION OR INFILTRATION NOTED. ALL MEDS GIVEN ORDERED, ALL NEEDS MET, CALL LIGHTS WITHIN REACH. ENDORSED TO PM NURSE FOR CONTINUATION OF CARE.
[2017-02-10 20:00] VITALS: BP 120/34
[2017-02-10] MEDS: ATORVASTATIN 10 MG TABLET PO SCH (21:30)
[2017-02-11] VITALS: BP_SYST 120; BP_SYST 128; BP_DIAS 34; BP_DIAS 50
[2017-02-11] MEDS: CIPROFLOXACIN HCL 0.3% 5 ML BOTTLE EACHEYE SCH ×3 (00:32→16:45)
[2017-02-11] MEDS: BLOOD SUGAR DIAGNOSTIC 1 EACH STRIP IN SCH ×6 (00:33→21:12)
[2017-02-11 04:00] VITALS: BP 123/40
[2017-02-11] MEDS: ACETAMINOPHEN 325 MG TABLET PO PRN (04:06)
--- NOTE | 2017-02-11 05:00 | NUR ---
MS RN NOTE BLOOD SUGAR 163. PATIENT NPO. NO COVERAGE GIVEN. WILL CONTINUE TO MONITOR.
[2017-02-11] MEDS: LIDOCAINE 5% (PATCH) 1 EA PATCH TP SCH (05:31)
--- NOTE | 2017-02-11 06:19 | NUR ---
MS RN NOTE PATIENT STABLE. ALL NEEDS MET AND ATTENDED TO. NO RESPIRATORY DISTRESS OR SOB NOTED. PATIENT HAD A TOOTHACHE. 4/10 PAIN. TYLENOL 650MG GIVEN PO. IV SITES INTACT WITH NO REDNESS OR INFILTRATION NOTED. PATIENT NPO EXCEPT MEDS SINCE MIDNIGHT FOR PERMACATH PLACEMENT. NO TIME YET. CONSENT SIGNED AND PLACED IN CHART. WILL ENDORSE TO DAY SHIFT FOR RONAN.
[2017-02-11 07:06] LABS: BASOPHILS # (AUTO) 0.1 /CMM (0.0-0.2); BASOPHILS % (AUTO) 0.6 % (0.0-2.0); EOSINOPHILS # (AUTO) 0.1 /CMM (0.0-0.7); EOSINOPHILS % (AUTO) 0.7 % (0.0-6.0); HEMATOCRIT 25 % (39-51); HEMOGLOBIN 7.9 g/dL (13.5-17.5); LYMPHOCYTES # (AUTO) 0.7 /CMM (0.8-4.8); LYMPHOCYTES % (AUTO) 5.5 % (20.0-44.0); MEAN CORPUSCULAR HEMOGLOBIN 25 PG (26.0-33.0); MEAN CORPUSCULAR HGB CONC 32 g/dl (31.0-36.0); MEAN CORPUSCULAR VOLUME 79 fL (80-96); MONOCYTES # (AUTO) 0.6 /CMM (0.1-1.30); MONOCYTES % (AUTO) 4.6 % (2.0-12.0); NEUTROPHILS # (AUTO) 10.5 /CMM (1.8-8.9); NEUTROPHILS % (AUTO) 88.6 % (43.0-81.0); PLATELET COUNT (AUTO) 178 /CMM (150-450); RDW COEFFICIENT OF VARIATION 17.7 (11.5-15.0); RED BLOOD CELL COUNT(AUTO) 3.16 MIL/uL (4.5-6.0); WHITE BLOOD COUNT (AUTO) 11.9 K/uL (4.3-11.0)
--- NOTE | 2017-02-11 07:40 | NUR ---
MS RN OPENING NOTE PATIENT IS ALERT AND ORIENTED x3.NO PAIN AT THIS TIME. NO SOB OR DISTRESS NOTED. CALL LIGHT WITHIN REACH. SAFETY MEASURES IMPLEMENTED. ABLE TO COMMUNICATE NEEDS. NPO EXCEPT MEDS THIS MORNING FOR PERMACATH PLACEMENT. SNEED CATHETER INTACT, NO SEDIMENT NOTED. WOUND TREATMENT TO BE DONE. WILL CONTINUE TO MONITOR
[2017-02-11 07:45] LABS: ALANINE AMINOTRANSFERASE 29 U/L (12-78); ALBUMIN 1.8 g/dL (3.4-5.0); ALKALINE PHOSPHATASE 88 U/L (46-116); ASPARTATE AMINOTRANSFERASE 28 U/L (15-37); BILIRUBIN,DIRECT 0.1 mg/dL (0.0-0.2); BILIRUBIN,TOTAL 0.5 mg/dL (0.2-1.0); CARBON DIOXIDE 31 mmol/L (21-32); CHLORIDE 105 mmol/L (98-107); CREATININE 2.3 mg/dL (0.6-1.3); GLUCOSE 107 mg/dL (74-106); POTASSIUM 4.1 mmol/L (3.5-5.1); SODIUM SERUM 141 mmol/L (136-145); TOTAL PROTEIN, SERUM 6.3 g/dL (6.4-8.2); UREA NITROGEN, BLOOD 50 mg/dL (7-18)
[2017-02-11 08:00] VITALS: BP 122/43
--- NOTE | 2017-02-11 08:00 | NUR ---
RN NOTE MADE MD AWARE OF H/H-7.04/13.NO NEW ORDERS AT THIS TIME. WILL CONTINUE TO MONITOR
[2017-02-11] MEDS: NYSTATIN TOP POWDER 15 GM BOTTLE TP SCH ×2 (08:51→16:45)
[2017-02-11] MEDS: MULTIVITAMINS,THERAGRAN 1 UDTAB TABLET PO SCH (08:52)
[2017-02-11] MEDS: PANTOPRAZOLE 40 MG TABLET.DR PO SCH (08:52)
[2017-02-11] MEDS: FERROUS SULFATE (325 MG) 325 MG/TAB TABLET PO SCH (08:52)
[2017-02-11] MEDS: ASCORBIC ACID 500 MG TABLET PO SCH (08:52)
[2017-02-11] MEDS: Z GUARD REMEDY 2 OZ OINT TP PRN (08:52)
[2017-02-11] MEDS: ZINC SULFATE 220 MG CAPSULE PO SCH (08:52)
[2017-02-11] MEDS: GABAPENTIN 300 MG CAPSULE PO SCH ×2 (08:52→16:42)
[2017-02-11] MEDS: LACTOBACILLUS RHAMNOSUS GG 1 EACH CAP.SPRINK PO SCH ×2 (08:52→16:42)
[2017-02-11] MEDS: AMIODARONE HCL 200 MG TABLET PO SCH (08:53)
[2017-02-11] MEDS: HYDROGEL DRESSING 90 GM TUBE TP SCH (08:55)
[2017-02-11] MEDS: UREA 10% -AHA 4% CREAM 57 GM TUBE TP SCH ×2 (08:55→16:45)
[2017-02-11] MEDS: Z GUARD REMEDY 2 OZ OINT TP SCH (08:56)
[2017-02-11] MEDS: BENEFIBER 4 GM 1 EA PACKET PO SCH ×2 (08:57→16:42)
[2017-02-11] MEDS: VITAMINS A AND D 56.7 GM TUBE TP SCH (08:57)
[2017-02-11] MEDS: NITROGLYCERIN PACKET 1 GM PACKET TD SCH ×2 (09:00→21:23)
[2017-02-11] MEDS: INSULIN DETEMIR 100 UNIT/ML CARTRIDGE SQ SCH ×2 (09:00→21:11)
[2017-02-11] MEDS: FLUCONAZOLE IN NS,PREMIX 200 MG in PREMIX 1 EA IV SCH ×2 (09:02)
[2017-02-11] MEDS: LEVOFLOXACIN 500 MG /D5W 100ML 500 MG in PREMIX 1 EA IV SCH (10:09)
[2017-02-11 14:00] VITALS: BP 110/49
[2017-02-11 16:00] VITALS: BP 110/50
[2017-02-11] MEDS: RIVAROXABAN 10 MG TABLET PO SCH (16:44)
[2017-02-11] MEDS: INSULIN REGULAR, HUMAN 100 UNIT/ML 3 ML VIAL SQ PRN (16:57)
--- NOTE | 2017-02-11 18:41 | NUR ---
MS RN CLOSING NOTE PATIENT IS ALERT AND ORIENTED x3. NO PAIN AT THIS TIME. NO SOB OR DISTRESS NOTED. CALL LIGHT WITHIN REACH AT ALL TIMES. SAFETY MEASURES IMPLEMENTED. IV INTACT AND PATENT NO REDNESS OR SWELLING NOTED. ABLE TO COMMUNICATE NEEDS. ALL DUE MEDICATIONS GIVEN ORDERED. SNEED CATHETER IN PLACE, NO SEDIMENT NOTED. NPO EXCEPT MEDS AFTER MIDNIGHT FOR PERMACATH PLACEMENT. WOUND TREATMENT DONE. WILL ENDORSE TO RESOURCE COORDINATOR NURSE
[2017-02-11 20:00] VITALS: BP_SYST 107; BP_SYST 110; BP_DIAS 29; BP_DIAS 50
--- NOTE | 2017-02-11 20:00 | NUR ---
RN NOTES PATIENT IN BED, AWAKE, ALERT AND ORIENTED X 4. VERBALLY COMMUNICATE NEEDS. NO COMPLAINT OF PAIN OF THIS TIME. RIGHT UPPER ARM MIDLINE PATENT AND INTACT. ABDOMEN SOFT AND NON TENDER. SNEED CATH PATENT DRAINING CLEAR YELLOW WITH NO FOUL ODOR URINE. KEPT CLEAN AND DRY. WILL CONTINUE TO MONITOR
[2017-02-11] MEDS: ATORVASTATIN 10 MG TABLET PO SCH (21:38)
--- NOTE | 2017-02-11 21:45 | NUR ---
RN NOTES PATIENT REFUSED LIPITOR 40MG. EXPLAINED RISK AND BENEFITS BUT PATIENT STILL REFUSED. MEDICINE RETURNED.
[2017-02-12] MEDS: CIPROFLOXACIN HCL 0.3% 5 ML BOTTLE EACHEYE SCH ×3 (01:00→17:25)
[2017-02-12] MEDS: BLOOD SUGAR DIAGNOSTIC 1 EACH STRIP IN SCH ×5 (01:48→17:29)
[2017-02-12] MEDS: INSULIN REGULAR, HUMAN 100 UNIT/ML 3 ML VIAL SQ PRN ×4 (01:51→17:27)
[2017-02-12] MEDS: ACETAMINOPHEN 325 MG TABLET PO PRN ×2 (03:33→17:24)
[2017-02-12 04:00] VITALS: BP 117/35
[2017-02-12] MEDS: LIDOCAINE 5% (PATCH) 1 EA PATCH TP SCH ×2 (05:33→05:59)
--- NOTE | 2017-02-12 06:00 | NUR ---
RN NOTES PATIENT REFUSED TO APPLY LIDOCAINE PATCH INSPITE OF EXPLANATION OF RISK AND BENEFITS
--- NOTE | 2017-02-12 06:38 | NUR ---
RN CLOSING NOTES IN BED, SLEEPING. NO EPISODE OF DISTRESS. TYLENOL GIVEN FOR MILD PAIN. FOR PERMA CATH INSERTION AT 0730. NPO SINCE MIDNIGHT. WILL ENDORSE TO AM SHIFT FOR CONTINUITY OF CARE.
[2017-02-12] MEDS ORDERED: LIDOCAINE 0.5% HCL 50 ML VIAL ONE (07:05)
--- NOTE | 2017-02-12 07:15 | NUR ---
RN NOTES PT TO OR AT THIS TIME. IN STABLE CONDITION.
[2017-02-12] MEDS ORDERED: HEPARIN SODIUM, PORCINE 1,000 UNIT/ML VIAL ONE (07:17)
[2017-02-12] MEDS ORDERED: SUCCINYLCHOLINE CHLORIDE 20 MG/ML VIAL ONE (07:36)
--- NOTE | 2017-02-12 09:00 | NUR ---
RN NOTES PT RETURNED FROM SURGERY IN STABLE CONDITION. VITAL SIGNS STABLE. A/OX3, RESPIRATIONS EVEN AND UNLABORED SATING WELL 2L NASAL CANNULA. SNEED DRAINING TO GRAVITY. LEFT UPPER ARM MIDLINE DRESSING DRY AND INTACT. NEWLY PLACED LEFT UPPER CHEST HD CATH DRESSING DRY AND INTACT. WILL CONTINUE TO MONITOR FOR ANY COMPLICATIONS. RIGHT IJ HD CATH ALSO CLEAN AND DRY. SIDE RAILS UP X3, CALL LIGHT WITHIN REACH, BED LOCKED AND IN LOWEST POSITION. WILL CONTINUE TO MONITOR.
[2017-02-12 09:09] VITALS: BP 145/48
[2017-02-12] MEDS: BENEFIBER 4 GM 1 EA PACKET PO SCH ×2 (09:20→17:00)
[2017-02-12] MEDS: ZINC SULFATE 220 MG CAPSULE PO SCH (09:21)
[2017-02-12] MEDS: NITROGLYCERIN PACKET 1 GM PACKET TD SCH (09:21)
[2017-02-12] MEDS: AMIODARONE HCL 200 MG TABLET PO SCH (09:21)
[2017-02-12] MEDS: GABAPENTIN 300 MG CAPSULE PO SCH ×2 (09:21→17:21)
[2017-02-12] MEDS: FERROUS SULFATE (325 MG) 325 MG/TAB TABLET PO SCH (09:21)
[2017-02-12] MEDS: MULTIVITAMINS,THERAGRAN 1 UDTAB TABLET PO SCH (09:21)
[2017-02-12] MEDS: LACTOBACILLUS RHAMNOSUS GG 1 EACH CAP.SPRINK PO SCH ×2 (09:22→17:21)
[2017-02-12] MEDS: FLUCONAZOLE IN NS,PREMIX 200 MG in PREMIX 1 EA IV SCH ×2 (09:22)
[2017-02-12] MEDS: PANTOPRAZOLE 40 MG TABLET.DR PO SCH (09:22)
[2017-02-12] MEDS: ASCORBIC ACID 500 MG TABLET PO SCH (09:22)
[2017-02-12] MEDS: UREA 10% -AHA 4% CREAM 57 GM TUBE TP SCH ×2 (09:25→17:23)
[2017-02-12] MEDS: NYSTATIN TOP POWDER 15 GM BOTTLE TP SCH ×2 (09:25→17:23)
[2017-02-12] MEDS: HYDROGEL DRESSING 90 GM TUBE TP SCH (09:26)
[2017-02-12] MEDS: Z GUARD REMEDY 2 OZ OINT TP PRN (09:26)
[2017-02-12] MEDS: Z GUARD REMEDY 2 OZ OINT TP SCH (09:28)
[2017-02-12] MEDS: VITAMINS A AND D 56.7 GM TUBE TP SCH (10:10)
[2017-02-12] MEDS: INSULIN DETEMIR 100 UNIT/ML CARTRIDGE SQ SCH (10:16)
[2017-02-12 12:00] VITALS: BP 151/52
[2017-02-12] MEDS ORDERED: LOPERAMIDE HCL (2 MG CAP) 2 MG CAPSULE PO PRN ×2 (14:30)
[2017-02-12 16:00] VITALS: BP 137/41
[2017-02-12] MEDS ORDERED: VANCOMYCIN 1 GM in IV D5W 250 ML IV ONE (16:00)
[2017-02-12] MEDS: RIVAROXABAN 10 MG TABLET PO SCH (17:21)
--- NOTE | 2017-02-12 18:46 | NUR ---
RN NOTES PT STABLE ,L UPPER CHEST HD CATH SITE CDI, REPORT GIVEN TO SNF , PT WILL BE DISCHARG TO SNF AROUND 7:30 PM, R ARM MIDLINE CDI, PT MEDICATED PER MD ORDER , NO SIGNIFICANT CHANGES NOTED ON THIS SHIFT .
--- NOTE | 2017-02-12 19:05 | NUR ---
RN OPENING NOTES RECEIVED REPORT FROM SHIRA ORTIZ. PATIENT A/A/O X4, ABLE TO MAKE NEEDS KNOWN. BREATHING EVEN AND UNLABORED, NO RESPIRATORY DISTRESS OR SOB. DENIES ANY PAIN OR DISCOMFORT. ROHAN MIDLINE CDI AND FLUSHING WELL. AWAITING TRANSPORT FOR DISCHARGE TO SNF.
--- NOTE | 2017-02-12 20:13 | NUR ---
RN NOTES PATIENT DISCHARGED TO [facility]. LEFT VIA [facility]. ALL DISCHARGE PAPERS GIVEN AND SIGNED. REPORT GIVEN TO AMBULANCE PERSONNEL.
== END 2017-02-12 20:13 | DRG 291 ==
LOC: ER 00:18 → TELE 03:40 → TELE1 02-05 14:11 → TELE-TD 02-05 14:32 → TELE1 02-06 10:54 → MEDSG1 02-07 09:48
PROVIDERS: ADMIT Internal Medicine; ATTEND Nurse Practitioner Acute Care
PROC: 05H633Z Insertion of Infusion Device into Left Subclavian Vein, Percutaneous Approach (ICD-10-PCS; principal; 2017-02-05)
PROC: B517YZA Fluoroscopy of Left Subclavian Vein using Other Contrast, Guidance (ICD-10-PCS; 2017-02-05)
PROC: 5A1D60Z (ICD-10-PCS; 2017-02-05)
PROC: 05HM33Z Insertion of Infusion Device into Right Internal Jugular Vein, Percutaneous Approach (ICD-10-PCS; 2017-02-05)
PROC: B543ZZA Ultrasonography of Right Jugular Veins, Guidance (ICD-10-PCS; 2017-02-05)
DX: I13.0 Hypertensive heart and chronic kidney disease with heart failure and stage 1 through stage 4 chronic kidney disease, or unspecified chronic kidney disease (principal); J96.02 Acute respiratory failure with hypercapnia; I50.33 Acute on chronic diastolic (congestive) heart failure; N17.0 Acute kidney failure with tubular necrosis; J96.01 Acute respiratory failure with hypoxia; L03.116 Cellulitis of left lower limb; L03.115 Cellulitis of right lower limb; J98.11 Atelectasis; I13.2 Hypertensive heart and chronic kidney disease with heart failure and with stage 5 chronic kidney disease, or end stage renal disease; D63.8 Anemia in other chronic diseases classified elsewhere; E11.21 Type 2 diabetes mellitus with diabetic nephropathy; E11.22 Type 2 diabetes mellitus with diabetic chronic kidney disease; E11.42 Type 2 diabetes mellitus with diabetic polyneuropathy; E11.51 Type 2 diabetes mellitus with diabetic peripheral angiopathy without gangrene; E11.65 Type 2 diabetes mellitus with hyperglycemia; E66.01 Morbid (severe) obesity due to excess calories; E78.5 Hyperlipidemia, unspecified; E87.5 Hyperkalemia; G43.909 Migraine, unspecified, not intractable, without status migrainosus; H10.9 Unspecified conjunctivitis; I44.0 Atrioventricular block, first degree; I25.10 Atherosclerotic heart disease of native coronary artery without angina pectoris; I87.2 Venous insufficiency (chronic) (peripheral); I48.0 Paroxysmal atrial fibrillation; K21.9 Gastro-esophageal reflux disease without esophagitis; K59.00 Constipation, unspecified; Z79.01 Long term (current) use of anticoagulants; Z79.84 Long term (current) use of oral hypoglycemic drugs; Z89.412 Acquired absence of left great toe; Z79.899 Other long term (current) drug therapy; Z99.2 Dependence on renal dialysis; Z88.1 Allergy status to other antibiotic agents; Z88.0 Allergy status to penicillin; Z91.013 Allergy to seafood; Z88.8 Allergy status to other drugs, medicaments and biological substances; Z91.018 Allergy to other foods; G47.30 Sleep apnea, unspecified; N18.2 Chronic kidney disease, stage 2 (mild)
CPT/HCPCS: 36415; 36569; 71010-TC; 76770-TC; 80048-TC; 80053-TC; 80074; 80076-TC; 80202-TC; 80305; 81000-TC; 82550-TC; 82553-TC; 82728-TC; 82962-TC; 83540-TC; 83605-TC; 83735-TC; 83880; 83970; 84100-TC; 84155; 84165; 84439-TC; 84443-TC; 84484-TC; 85025-TC; 85610-TC; 85730-TC; 86704; 86706; 86707; 86709-TC; 87040-TC; 87081-TC; 87086-TC; 87340; 90935-TC; 93307-TC; 93970-TC; 94799-TC; A4216; A4606; A6248; A6402; C1751; J0330; J1450; J1644; J1815; J1956; J2405; J2930; J3370; J3490; J7030; J7050; J7060; Z7610

== ENCOUNTER 2017-05-05 19:53 | Emergency (ER) | payer MEDICARE, OTHER ==
[~2017-05-05] VITALS: Ht 195.6 cm; Wt 166.5 kg
--- NOTE | 2017-05-05 20:10 | NUR ---
[facility] AMBULANCE; LEFT ARM PAIN AND SWELLING S/P MOVING FROM ONE GURNEY TO ANOTHER AT 8:30 AM TODAY PRIOR TO HD. PT AOX3 RR EVEN AND UNLABORED. NO SOB NOTED. NAD NOTED. NO NVD AT THIS TIME. PT GOWNED AND PLACED ON MONITOR. WAITING FOR MD MARTINEZ. HD SITE ON LEFT CW AND HD LFA FISTULA NOTED WITH BRUIT AND THRILL.
--- NOTE | 2017-05-05 20:20 | NUR ---
DR. HYDE AT BEDSIDE FOR EVAL.
[2017-05-05] MEDS ORDERED: ONDANSETRON 4 MG TAB.RAPDIS ONE (20:27)
[2017-05-05] MEDS ORDERED: HYDROCODONE/APAP 10/325MG 1 EA TABLET ONE (20:27)
[2017-05-05] MEDS ORDERED: MORPHINE SULFATE INJ 2 MG/ML DISP.SYRIN IM ONE (20:30)
[2017-05-05] MEDS ORDERED: HYDROCODONE/APAP 10/325MG 1 EA TABLET PO ONE (20:30)
[2017-05-05] MEDS ORDERED: ONDANSETRON 4 MG TAB.RAPDIS SL ONE (20:30)
--- NOTE | 2017-05-05 20:32 | NUR ---
PT REFUSED NORCO, RISK AND BENEFITS EXPLAINED X3. PT STRONGLY REFUSED. AWARE
[2017-05-05] MEDS ORDERED: MORPHINE SULFATE INJ 4 MG/ML DISP.SYRIN ONE (20:34)
--- NOTE | 2017-05-05 20:40 | NUR ---
RADIOLOGY AT BEDSIDE FOR XRAY
--- NOTE | 2017-05-05 21:35 | NUR ---
BRADLY AT BEDSIDE
--- NOTE | 2017-05-05 21:39 | NUR ---
Marc castillo in EDM - 05/05/[address] HYDE SPEAKING TO DR. ROY REGARDING POC.
--- NOTE | 2017-05-05 21:40 | NUR ---
Marc castillo in EDM - 05/05/[address] at [address] HYDE SPEAKING TO DR. MATHEW REGARDING POC.
--- NOTE | 2017-05-05 22:23 | NUR ---
CALLED [facility] FOR TRANSPORTATION GOING BACK TO [facility] ETA [id number]
--- NOTE | 2017-05-05 23:25 | NUR ---
INFORMED ANGEL GARRIDO PT TO BE TRANSFERRED BACK TO [facility].
--- NOTE | 2017-05-05 23:26 | NUR ---
REPORT GIVEN TO [facility] EMT FOR RONAN. PT AWARE OF TRANSFER BACK TO [facility]. PT WITH ALL PERSONAL BELONGINGS. PT TO BE TRANSFERRED BACK TO FACILITY VIA GURNEY. PT RADHA TOOK OVER CARE.
[2017-05-05 23:28] VITALS: BP 116/57
== END 2017-05-05 23:29 | disposition home or self-care (01) ==
LOC: EDBD → ER 19:54
DX: M79.621 Pain in right upper arm (principal); I13.2 Hypertensive heart and chronic kidney disease with heart failure and with stage 5 chronic kidney disease, or end stage renal disease; E11.22 Type 2 diabetes mellitus with diabetic chronic kidney disease; N18.6 End stage renal disease; I50.9 Heart failure, unspecified; E66.01 Morbid (severe) obesity due to excess calories; E78.5 Hyperlipidemia, unspecified; Z99.2 Dependence on renal dialysis; Z79.4 Long term (current) use of insulin; Z88.0 Allergy status to penicillin; Z91.013 Allergy to seafood; Z88.1 Allergy status to other antibiotic agents; Z88.8 Allergy status to other drugs, medicaments and biological substances; Z91.018 Allergy to other foods; Z79.01 Long term (current) use of anticoagulants
CPT/HCPCS: 73060; 96372; 99284; A4606; J2270; Q0162; Z7610

== ENCOUNTER 2017-06-07 12:22 | Emergency (ER) | payer MEDICARE, OTHER ==
[~2017-06-07] VITALS: Ht 182.9 cm; Wt 163.7 kg
--- NOTE | 2017-06-07 12:27 | NUR ---
[facility]SD[facility], NO INJURY
[2017-06-07] MEDS ORDERED: ONDANSETRON 4 MG TAB.RAPDIS ONE (12:55)
[2017-06-07] MEDS ORDERED: HYDROMORPHONE INJ 2 MG/ML DISP.SYRIN ONE (12:55)
[2017-06-07] MEDS ORDERED: ONDANSETRON 4 MG TAB.RAPDIS SL ONE (13:00)
[2017-06-07] MEDS ORDERED: HYDROMORPHONE 1 MG/1 ML DISP.SYRIN IM ONE (13:00)
--- NOTE | 2017-06-07 13:52 | NUR ---
PT BACK FROM CT SCAN
--- NOTE | 2017-06-07 14:34 | NUR ---
CALLED [facility] FOR S ETA TRIP #[id number] ETA [phone]. SPOKE WITH SERA
--- NOTE | 2017-06-07 14:57 | NUR ---
SPOKE WITH BARBARA AT [facility]. HE WAS ABLE TO MOVE UP THE ETA TO 1 HOUR 15 MINUTES
[2017-06-07 16:07] VITALS: BP 100/50
--- NOTE | 2017-06-07 16:07 | NUR ---
PATIENT WAS PICKED UP BY [facility] EMT. YARONS
--- NOTE | 2017-06-07 16:11 | NUR ---
Patient discharged to home in stable condition. Written and verbal after care instructions given. Patient verbalizes understanding of instruction.
== END 2017-06-07 16:08 | disposition home or self-care (01) ==
LOC: ER 12:28
DX: M54.5 Low back pain (principal); E66.01 Morbid (severe) obesity due to excess calories; I11.0 Hypertensive heart disease with heart failure; I50.9 Heart failure, unspecified; I48.91 Unspecified atrial fibrillation; K21.9 Gastro-esophageal reflux disease without esophagitis; E78.5 Hyperlipidemia, unspecified; E11.9 Type 2 diabetes mellitus without complications; F32.9 Major depressive disorder, single episode, unspecified; Z79.01 Long term (current) use of anticoagulants; Z79.4 Long term (current) use of insulin; Z88.0 Allergy status to penicillin; Z99.2 Dependence on renal dialysis; D64.9 Anemia, unspecified; Z88.8 Allergy status to other drugs, medicaments and biological substances; Z88.1 Allergy status to other antibiotic agents; Z91.013 Allergy to seafood
CPT/HCPCS: 96372; 99284; A4606; J1170; Q0162; Z7610

== ENCOUNTER 2017-06-11 12:55 | Emergency (ER) | payer MEDICARE, OTHER ==
[~2017-06-11] VITALS: Ht 172.7 cm; Wt 156.5 kg
--- NOTE | 2017-06-11 13:00 | NUR ---
ABBEY [facility] FROM [facility] FOR MORE ALTERED THAN USUAL. VSS. NOTED NITRO PATCH ON CHEST DATED TODAY FROM [facility]. SEEN BY MD FOR EVAL. SAFETY AND COMFORT MEASURES PROVIDED. WILL MONITOR.
--- NOTE | 2017-06-11 13:15 | NUR ---
IV ACCESS STARTED, BLOOD DRAWN FOR LABS.
--- NOTE | 2017-06-11 13:20 | NUR ---
NOTED MULTIPLE PRESSURE SORES ON BLE WITH DD. DAVALOS AWARE.
[2017-06-11 13:43] LABS: CALCIUM, SERUM 8.6 mg/dL (8.5-10.1); CARBON DIOXIDE 33 mmol/L (21-32); CHLORIDE 92 mmol/L (98-107); GLUCOSE 113 mg/dL (74-106); POTASSIUM 3.5 mmol/L (3.5-5.1); SODIUM SERUM 133 mmol/L (136-145); UREA NITROGEN, BLOOD 22 mg/dL (7-18)
[2017-06-11 13:49] LABS: ALANINE AMINOTRANSFERASE 17 U/L (12-78); ALBUMIN 2.7 g/dL (3.4-5.0); ALKALINE PHOSPHATASE 92 U/L (46-116); ASPARTATE AMINOTRANSFERASE 24 U/L (15-37); BILIRUBIN,DIRECT 0.3 mg/dL (0.0-0.2); BILIRUBIN,TOTAL 0.7 mg/dL (0.2-1.0); TOTAL PROTEIN, SERUM 7.7 g/dL (6.4-8.2)
[2017-06-11 13:50] LABS: INR 1.16 (0.87-1.13); PROTHROMBIN TIME 12.1 SECS (9.5-12.7)
[2017-06-11 13:51] LABS: TROPONIN I < 0.017 ng/mL (0.00-0.056)
[2017-06-11 13:59] LABS: BASOPHILS % (AUTO) 0.4 % (0.0-2.0); EOSINOPHILS # (AUTO) 0.2 /CMM (0.0-0.7); EOSINOPHILS % (AUTO) 2.5 % (0.0-6.0); HEMATOCRIT 30 % (39-51); HEMOGLOBIN 9.3 g/dL (13.5-17.5); LYMPHOCYTES # (AUTO) 1.6 /CMM (0.8-4.8); LYMPHOCYTES % (AUTO) 16.8 % (20.0-44.0); MEAN CORPUSCULAR HEMOGLOBIN 27 PG (26.0-33.0); MEAN CORPUSCULAR HGB CONC 31 g/dl (31.0-36.0); MEAN CORPUSCULAR VOLUME 88 fL (80-96); MONOCYTES # (AUTO) 1.1 /CMM (0.1-1.30); MONOCYTES % (AUTO) 11.4 % (2.0-12.0); NEUTROPHILS # (AUTO) 6.4 /CMM (1.8-8.9); NEUTROPHILS % (AUTO) 68.9 % (43.0-81.0); PLATELET COUNT (AUTO) 199 /CMM (150-450); RDW COEFFICIENT OF VARIATION 19.9 (11.5-15.0); WHITE BLOOD COUNT (AUTO) 9.3 K/uL (4.3-11.0)
--- NOTE | 2017-06-11 14:04 | NUR ---
PT NOTED DESATED TO LOW 80'S- PLACED ON NC.
[2017-06-11] MEDS ORDERED: FOLI0.8T2 PO (14:21)
[2017-06-11] MEDS ORDERED: LIDO30AD10 TP (14:21)
[2017-06-11] MEDS ORDERED: HYDR4TAB57 PO (14:21)
[2017-06-11] MEDS ORDERED: LACT1CAP55 PO (14:21)
[2017-06-11] MEDS ORDERED: CYCL5TAB PO (14:21)
[2017-06-11] MEDS ORDERED: CALC-911 PO (14:21)
[2017-06-11] MEDS ORDERED: GLIP5TAB21 PO (14:21)
[2017-06-11] MEDS ORDERED: HYDR-3326 PO (14:21)
[2017-06-11] MEDS ORDERED: MAGN400O6 PO (14:21)
[2017-06-11] MEDS ORDERED: OMEP20CA10 PO (14:21)
[2017-06-11] MEDS ORDERED: ACET-868 PO ×2 (14:21)
[2017-06-11] MEDS ORDERED: GABA-534 PO (14:21)
[2017-06-11] MEDS ORDERED: DIPH25CA6 PO (14:21)
--- NOTE | 2017-06-11 16:00 | NUR ---
PROVIDED PT WITH FOOD- ABLE TO TOLERATE. MADE AWARE.
--- NOTE | 2017-06-11 16:10 | NUR ---
AMBULANCE ETA FOR TRANSPORT 1800.
[2017-06-11 18:09] VITALS: BP 104/56
== END 2017-06-11 18:11 | disposition home or self-care (01) ==
LOC: EDBD 12:58 → ER 12:58
DX: R41.82 Altered mental status, unspecified (principal); I13.2 Hypertensive heart and chronic kidney disease with heart failure and with stage 5 chronic kidney disease, or end stage renal disease; E11.22 Type 2 diabetes mellitus with diabetic chronic kidney disease; I50.9 Heart failure, unspecified; N18.6 End stage renal disease; I25.10 Atherosclerotic heart disease of native coronary artery without angina pectoris; K21.9 Gastro-esophageal reflux disease without esophagitis; F32.9 Major depressive disorder, single episode, unspecified; E78.5 Hyperlipidemia, unspecified; E66.01 Morbid (severe) obesity due to excess calories; Z99.2 Dependence on renal dialysis; Z86.14 Personal history of Methicillin resistant Staphylococcus aureus infection; Z96.659 Presence of unspecified artificial knee joint; Z88.8 Allergy status to other drugs, medicaments and biological substances; Z88.0 Allergy status to penicillin; Z88.1 Allergy status to other antibiotic agents; Z91.013 Allergy to seafood; Z79.4 Long term (current) use of insulin
CPT/HCPCS: 36415; 70450; 71010; 80048; 80076; 84484; 85025; 85730; 93005; 99285; A4606; Z7610

== ENCOUNTER 2017-08-30 18:16 | Inpatient (IN) | payer MEDICARE, OTHER ==
[2017-08-30] VITALS: BP 104/35
[~2017-08-30] VITALS: Ht 172.7 cm; Wt 139.3 kg
[2017-08-30 04:00] VITALS: BP 92/42
[~2017-08-30 18:16] MED LIST changes: +ACET-868 PO; -AMLO10TA2 PO; -ARGI1POW13 PO; -ASCO500T9 PO; -BUME1TAB4 PO; +CALC-494 PO; -CELE100C PO; +CYCL5TAB PO; +DIPH25CA6 PO; -FERR-58 PO; +FERR325T24 PO; +FOLI0.8T2 PO; +GABA-534 PO; -GABA300C PO; -GLIM4TAB2 PO; +GLIP-217 PO; -HYDR-3658 PO; +HYDR-3974 PO; +HYDR4TAB57 PO; -IBUP-1481 PO; -LACT1CAP72 PO; +LACT1CAP94 PO; -LEVO500T15 PO; -MULT-1168 PO; -Nortriptyline Hcl PO; +OMEP20CA10 PO; -ONDA-25 PO; +ONDA4TAB10 PO; -PANT40TA4 PO; -SITA50TA PO; -UREA57CR TP; -VALS80TA2 PO; -VANC500V IV; -WHEA1POW6 PO
--- NOTE | 2017-08-30 18:25 | NUR ---
YARITZA WILSONM MIRIAM LERNER DT FEVER, SOB, AND ABNORAML LAB RESULTS FROM SNF. PATIENT IS A/OX 3, BUT LETHARGIC AND SHORT OF BREATH. O2 SATURATION WNL. FEVER OF 102.0. HD CATH PRESENT ON LEFT CHEST WALL. SAFETY AND COMFORT MEASURES IN PLACE. MD AT BEDSIDE FOR EVAL.
--- NOTE | 2017-08-30 18:35 | NUR ---
NEW IV STARTED ON RAC, 20 G.
[2017-08-30] MEDS ORDERED: ACETAMINOPHEN 325 MG TABLET ONE (18:48)
--- NOTE | 2017-08-30 18:50 | NUR ---
NEUROCRITICAL CARE PHYSICIAN AT BEDSIDE FOR BLOOD DRAW.
--- NOTE | 2017-08-30 18:50 | NUR ---
CALLED NURSE SUP FOR BED
[2017-08-30] MEDS ORDERED: ACETAMINOPHEN 650 MG/SUPP.RECT RC ONE ×2 (18:52→19:00)
[2017-08-30] MEDS ORDERED: IV NS 0.9% 500 ML BAG IV ONE (19:00)
--- NOTE | 2017-08-30 19:05 | NUR ---
MECHANICAL ASSEMBLER AT BEDSIDE.
[2017-08-30] MEDS ORDERED: METH-406 PO (19:10)
--- NOTE | 2017-08-30 19:10 | NUR ---
REPORT GIVEN TO KIT ORTIZ FOR RONAN.
--- NOTE | 2017-08-30 19:11 | NUR ---
REPORT RECEIVED FROM ANGEL DENNIS FOR RONAN.
[2017-08-30 19:16] LABS: BASOPHILS # (AUTO) 0.5 /CMM (0.0-0.2); HEMATOCRIT 35 % (39-51); HEMOGLOBIN 11.2 g/dL (13.5-17.5); LYMPHOCYTES # (AUTO) 0.2 /CMM (0.8-4.8); LYMPHOCYTES % (AUTO) 1.3 % (20.0-44.0); MEAN CORPUSCULAR HEMOGLOBIN 27 PG (26.0-33.0); MEAN CORPUSCULAR HGB CONC 32 g/dl (31.0-36.0); MEAN CORPUSCULAR VOLUME 83 fL (80-96); MONOCYTES # (AUTO) 0.6 /CMM (0.1-1.30); MONOCYTES % (AUTO) 3.6 % (2.0-12.0); NEUTROPHILS # (AUTO) 16.6 /CMM (1.8-8.9); NEUTROPHILS % (AUTO) 92.1 % (43.0-81.0); PLATELET COUNT (AUTO) 165 /CMM (150-450); RDW COEFFICIENT OF VARIATION 17.6 (11.5-15.0); RED BLOOD CELL COUNT(AUTO) 4.17 MIL/uL (4.5-6.0); WHITE BLOOD COUNT (AUTO) 17.9 K/uL (4.3-11.0)
--- NOTE | 2017-08-30 19:22 | NUR ---
PER DR. GRIJALVA, MAY GIVE TYLENOL PO IF TOLERATED. PATIENT DID NOT TOLERATE ORALLY. 1 TABLET WASTED, 2 RETURNED. TYLENOL ADMINISTERED RECTALLY. URINE OBTAINED VIA STRAIGHT CATH PER AND SENT TO LAB.
[2017-08-30 19:27] LABS: CALCIUM, SERUM 8.5 mg/dL (8.5-10.1); CARBON DIOXIDE 23 mmol/L (21-32); CHLORIDE 103 mmol/L (98-107); CREATININE 2.9 mg/dL (0.6-1.3); GLUCOSE 230 mg/dL (74-106); POTASSIUM 4.2 mmol/L (3.5-5.1); SODIUM SERUM 133 mmol/L (136-145); UREA NITROGEN, BLOOD 42 mg/dL (7-18)
[2017-08-30 19:29] LABS: INR 1.54 (0.85-1.15)
[2017-08-30 19:34] LABS: ALANINE AMINOTRANSFERASE 16 U/L (12-78); ALBUMIN 1.8 g/dL (3.4-5.0); ALKALINE PHOSPHATASE 106 U/L (46-116); ASPARTATE AMINOTRANSFERASE 29 U/L (15-37); BILIRUBIN,DIRECT 0.6 mg/dL (0.0-0.2); BILIRUBIN,TOTAL 0.8 mg/dL (0.2-1.0)
[2017-08-30 19:35] LABS: TROPONIN I 0.029 ng/mL (0.00-0.056)
[2017-08-30 20:00] VITALS: BP 100/46
[2017-08-30 20:00] LABS: BILIRUBIN,URINE MODERATE (NEGATIVE); BLOOD, URINE Negative Ery/uL (NEGATIVE); KETONES,URINE Trace (NEGATIVE); LEUKOCYTE ESTERASE ,URINE Negative (NEGATIVE); NITRITE, URINE Negative (NEGATIVE); PROTEIN,URINE 30 mg/dl (NEGATIVE); UGLUCOSE Negative (NEGATIVE); UROBILINOGEN,URINE 0.2 EU/dL (0.2)
[2017-08-30 20:05] LABS: APPEARANCE,URINE SLIGHTLY CLOUDY (CLEAR); COLOR,URINE DARK YELLOW (YELLOW)
--- NOTE | 2017-08-30 20:18 | NUR ---
PT TBA TELE BED 322-1.
[2017-08-30] MEDS ORDERED: PIPERACILLIN /TAZOBACTAM 3.375 G VIAL IV ONE (20:26)
[2017-08-30] MEDS ORDERED: VANCOMYCIN 1 GM VIAL ONE (20:26)
[2017-08-30 20:28] LABS: BACTERIA,URINE Moderate /HPF (None Seen); RBC,URINE 0-2 /HPF (0-2); SQUAMOUS EPITHELIAL CELL,UR Moderate /HPF (None Seen); WBC,URINE 0-2 /HPF (0-3)
[2017-08-30 20:29] LABS: URINE AMORPHOUS URATE Many /HPF (None Seen)
--- NOTE | 2017-08-30 20:38 | NUR ---
RAPID FLU SWAB OBTAINED AND SENT TO THE LAB.
[2017-08-30] MEDS ORDERED: VANCOMYCIN 1 GM in IV D5W 250 ML IV ONE (21:00)
[2017-08-30] MEDS ORDERED: LEVOFLOXACIN 750 MG /D5W 150ML 150 ML IV ONE ×2 (21:00→23:36)
--- NOTE | 2017-08-30 21:02 | NUR ---
ENDORSED TO ANGEL DAMIAN FOR RONAN.
--- NOTE | 2017-08-30 21:17 | NUR ---
LEVAQUIN 750MG IV ENDORSED TO FLOOR NURSE. SEE ORDERS.
--- NOTE | 2017-08-30 21:38 | NUR ---
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
[2017-08-30 21:45] VITALS: BP 125/49
--- NOTE | 2017-08-30 21:45 | NUR ---
RN OPEN NOTES RECEIVED PATIENT FOR ER VIA RD. A/OX3. NO SIGNS OF DISTRESS OR DISCOMFORT. BREATHING EVEN AND UNLABORED. ON 4LPM O2 VIA NC. IV ACCESS IN RAC, PATENT AND INTACT, NO SIGNS OF REDNESS OR INFILTRATION. ORIENTED PATIENT TO UNIT AND ROOM. BED IN LOW LOCKED POSITION WITH SIDE RAILS X2. CALL LIGHT WITHIN REACH. WILL CONTINUE TO MONITOR.
[2017-08-30 22:00] VITALS: BP 125/49
[2017-08-30] MEDS ORDERED: LEVOFLOXACIN 750 MG /D5W 150ML 750 MG in PREMIX 1 EA IV ONE (22:00)
[2017-08-30] MEDS ORDERED: hydrALAZINE HCL 25 MG TABLET PO PRN (23:30)
[2017-08-30] MEDS ORDERED: INSULIN REGULAR, HUMAN 100 UNIT/ML 3 ML VIAL SQ PRN (23:30)
[2017-08-30] MEDS ORDERED: NA PHOS,M-B/NA PHOS,DI-BA 1 EA ENEMA RC PRN (23:30)
[2017-08-30] MEDS ORDERED: METHOCARBAMOL (750MG) 750 MG TABLET PO PRN (23:30)
[2017-08-30] MEDS ORDERED: diphenhydrAMINE HCL 25 MG CAPSULE PO PRN (23:30)
[2017-08-30] MEDS ORDERED: BISACODYL SUPP (10 MG) 10 MG/SUPP.RECT SUPP.RECT RC PRN (23:30)
[2017-08-31] VITALS: BP 104/35
[2017-08-31] MEDS ORDERED: ALBUTEROL FS 2.5 MG/3 ML VIAL.NEB NEB PRN
[2017-08-31] MEDS ORDERED: ONDANSETRON HCL/PF 4 MG/2 ML VIAL IVP PRN
--- NOTE | 2017-08-31 00:37 | NUR ---
RN NOTES DR. JANG AT PATIENT BEDSIDE.
[2017-08-31 04:00] VITALS: BP 92/42
[2017-08-31] MEDS ORDERED: MEROPENEM 500 MG VIAL IV ONE (05:35)
[2017-08-31] MEDS: MEROPENEM 500 MG in IV NS 0.9% 50 ML IV SCH ×2 (05:39→22:11)
--- NOTE | 2017-08-31 07:15 | NUR ---
TOP FRAME MAKER OPENING PT RECEIVED AND WOKEN WITH GENTLE TOUCH, PT A&0X3. PT PRESENTS ANXIOUS. PT WITH O2 VIA NC AT 4LPM AND SAO2 92%, PT REPORTING SOME SOB, PT LUNGS AUSCULTATED WITH L SIDE RHONCHI. PT ABLE TO CLEAR SOME SPUTUM. PT REPORTING NO PAIN. PT WITH IVC AT R AC INTACT AND OPERATIONAL. PT REQUIRING BARIATRIC BED, ORDER PLACED. CURRENT BED IN LOWEST LOCKED POSITION WITH HANDRAILSX4 AND CALL [place] WITHIN REACH. PT BRIEFED ON TODAY'S POC AND IS WITHOUT CONCERN OR COMPLAINT AT THIS TIME.
[2017-08-31 07:26] LABS: HEMATOCRIT 32 % (39-51); HEMOGLOBIN 10.2 g/dL (13.5-17.5); LYMPHOCYTES # (AUTO) 0.4 /CMM (0.8-4.8); LYMPHOCYTES % (AUTO) 2.2 % (20.0-44.0); MEAN CORPUSCULAR HEMOGLOBIN 27 PG (26.0-33.0); MEAN CORPUSCULAR HGB CONC 32 g/dl (31.0-36.0); MEAN CORPUSCULAR VOLUME 86 fL (80-96); MONOCYTES # (AUTO) 0.6 /CMM (0.1-1.30); MONOCYTES % (AUTO) 3.6 % (2.0-12.0); NEUTROPHILS # (AUTO) 16.2 /CMM (1.8-8.9); NEUTROPHILS % (AUTO) 94.2 % (43.0-81.0); PLATELET COUNT (AUTO) 120 /CMM (150-450); RDW COEFFICIENT OF VARIATION 18.7 (11.5-15.0); RED BLOOD CELL COUNT(AUTO) 3.73 MIL/uL (4.5-6.0); WHITE BLOOD COUNT (AUTO) 17.2 K/uL (4.3-11.0)
--- NOTE | 2017-08-31 07:43 | NUR ---
RN CLOSING NOTES PATIENT AWAKE IN BED. A/OX3. NO SIGNS OF DISTRESS OR DISCOMFORT. BREATHING EVEN AND UNLABORED. ON 4LPM O2 VIA NC. IV ACCESS IN RAC, PATENT AND INTACT, NO SIGNS OF REDNESS OR INFILTRATION. ALL NEEDS MET. NO SIGNIFICANT CHANGES THROUGH THE NIGHT. REPOSITIONED PATIENT Q2H. BED IN LOW LOCKED POSITION WITH SIDE RAILS X2. CALL LIGHT WITHIN REACH. ENDORSED TO AM SHIFT FOR RONAN.
[2017-08-31 07:59] LABS: CHOLESTEROL 44 mg/dL (<200); HDL CHOLESTEROL 15 mg/dL (40-60); LDL 15 mg/dL (0-99); THYROID STIMULATING HORMONE 0.208 uIU/mL (0.358-3.74); TRIGLYCERIDES 82 mg/dL (30-150)
[2017-08-31 08:00] VITALS: BP 92/41
[2017-08-31 08:19] LABS: CALCIUM, SERUM 8.6 mg/dL (8.5-10.1); CARBON DIOXIDE 23 mmol/L (21-32); CHLORIDE 107 mmol/L (98-107); CREATININE 3.4 mg/dL (0.6-1.3); GLUCOSE 258 mg/dL (74-106); POTASSIUM 4.8 mmol/L (3.5-5.1); SODIUM SERUM 139 mmol/L (136-145); UREA NITROGEN, BLOOD 49 mg/dL (7-18)
[2017-08-31 08:20] LABS: ALANINE AMINOTRANSFERASE 23 U/L (12-78); ALBUMIN 1.6 g/dL (3.4-5.0); ALKALINE PHOSPHATASE 85 U/L (46-116); ASPARTATE AMINOTRANSFERASE 39 U/L (15-37); BILIRUBIN,TOTAL 0.8 mg/dL (0.2-1.0); MAGNESIUM 1.7 mg/dL (1.8-2.4); PHOSPHORUS 3.9 mg/dL (2.5-4.9); TOTAL PROTEIN, SERUM 6.3 g/dL (6.4-8.2)
[2017-08-31] MEDS ORDERED: DEXTROSE 50%-WATER 50 ML DISP.SYRIN IV PRN (08:30)
[2017-08-31] MEDS: LACTOBACILLUS RHAMNOSUS GG 1 EACH CAP.SPRINK PO SCH ×2 (08:37→17:27)
[2017-08-31] MEDS: FERROUS SULFATE (325 MG) 325 MG/TAB TABLET PO SCH (08:37)
[2017-08-31] MEDS: AMIODARONE HCL 200 MG TABLET PO SCH (08:37)
[2017-08-31] MEDS: GABAPENTIN 300 MG CAPSULE PO SCH ×2 (08:37→17:27)
[2017-08-31] MEDS: LIDOCAINE 5% (PATCH) 1 EA PATCH TP SCH ×2 (08:39→08:49)
[2017-08-31] MEDS: PANTOPRAZOLE 40 MG TABLET.DR PO SCH (08:39)
[2017-08-31] MEDS ORDERED: ALBUMIN 25% 25 GM in PREMIX 1 EA IV ONE (09:00)
[2017-08-31] MEDS: INSULIN GLARGINE, 100 UNIT/ML CARTRIDGE SQ SCH ×2 (09:35→22:11)
[2017-08-31 11:21] LABS: TROPONIN I 0.028 ng/mL (0.00-0.056)
[2017-08-31] MEDS ORDERED: IV NS 0.9% 500 ML IV ONE (11:30)
[2017-08-31] MEDS: BLOOD SUGAR DIAGNOSTIC 1 EACH STRIP IN SCH ×3 (11:54→22:11)
[2017-08-31] MEDS ORDERED: HYDROMORPHONE HCL 2 MG TABLET PO PRN (12:00)
[2017-08-31] MEDS: Magnesium 1GM/D5W 100ML PREMIX 100 ML IV SCH ×2 (12:16→13:32)
[2017-08-31] MEDS: INSULIN REGULAR, HUMAN 100 UNIT/ML 3 ML VIAL SQ PRN ×2 (12:21→22:19)
[2017-08-31] MEDS ORDERED: FEE PK DOSING 1 MIN EA MC ONE (14:01)
--- NOTE | 2017-08-31 15:40 | NUR ---
MSANGEL. PT REPORTING PAIN. MD VALLES REQUESTING MORPHINE 2MG Q6HR IV PRN, ORDERS PLACED.
[2017-08-31 16:00] VITALS: BP 87/55
[2017-08-31] MEDS ORDERED: MORPHINE SULFATE INJ 2 MG/ML DISP.SYRIN IV PRN (16:00)
[2017-08-31] MEDS: HYDROMORPHONE INJ 0.5 MG/0.5 ML SYRINGE IV PRN ×2 (16:15→22:35)
--- NOTE | 2017-08-31 16:45 | NUR ---
MSRN NOTES. MD Soham LEES REQUESTING ONE TIME DILAUDID 0.25MG IV, ORDERS PLACED.
[2017-08-31] MEDS ORDERED: HYDROMORPHONE INJ 0.5 MG/0.5 ML SYRINGE IV ONE (17:45)
--- NOTE | 2017-08-31 19:09 | NUR ---
MSRN CLOSING NOTES. PT A&0X3 WITH O2 VIA NC AT 2LPM AND SAO2 WNL AND NO SOB AT THIS TIME. PT REPORTING SEVERE INTERMITTENT PAIN AT BACK AND R KNEE. PT SYSTOLIC REMAINS IN 90S, MD AWARE. PT WITH IVC AT R AC INTACT AND OPERATIONAL WITH TKO NS. PT REFUSING POST PRODUCTION ASSISTANT AFTERNOON CARE AND HYGIENE AND SACRAL SKIN CARE, WILL ENDORSE TO NIGHT NURSE. PT WOUND CARE PROVIDED PER ORDER WITH BI LAT LE DEBRIDEMENT AND BANDAGING WITH MD Soham LEES. PT WITH BARIATRIC BED, BED IN LOWEST LOCKED POSITION AND HANDRAILS X4 AND CALL [place] WITHIN REACH. ALL DAY NURSE DUTIES ATTENDED TO PT IS WITHOUT CONCERN RO COMPLAINT AT THIS TIME.
--- NOTE | 2017-08-31 19:20 | NUR ---
MSRN NOTES. PRELIM BLOOD CX RESULTS - BOTH BOTTLES GRAM POSITIVE COCCI IN CHAINS SEEN ON GRAM STAIN SLIDE PER [facility].
--- NOTE | 2017-08-31 19:20 | NUR ---
RN OPENING NOTES RECEIVED PATIENT AWAKE IN BED. A/OX3. NO SIGNS OF DISTRESS OR DISCOMFORT. BREATHING EVEN AND UNLABORED. ON 4LPM O2 VIA NC. IV ACCESS IN RAC, PATENT AND INTACT, NO SIGNS OF REDNESS OR INFILTRATION. BED IN LOW LOCKED POSITION WITH SIDE RAILS X2. CALL LIGHT WITHIN REACH. WILL CONTINUE TO MONITOR.
[2017-08-31 20:00] VITALS: BP 100/46
[2017-08-31] MEDS: ATORVASTATIN 10 MG TABLET PO SCH (22:12)
--- NOTE | 2017-08-31 22:14 | NUR ---
RN NOTES DR. JANG NOTIFIED OF PATIENT CRITICAL LAB VALUE, PROCALCITONIN 13.05. NO NEW ORDERS GIVEN. WILL CONTINUE TO MONITOR.
[2017-08-31 22:35] VITALS: BP 109/46
--- NOTE | 2017-08-31 22:35 | NUR ---
RN NOTES ADMINISTERED DILAUDID .25MG ORDERED FOR PAIN 03/29 IN R KNEE. BP 109/49 P106. WILL CONTINUE TO MONITOR.
[2017-09-01] MEDS: ACETAMINOPHEN 325 MG TABLET PO PRN (03:19)
[2017-09-01] MEDS: INSULIN REGULAR, HUMAN 100 UNIT/ML 3 ML VIAL SQ PRN ×3 (06:37→22:39)
[2017-09-01] MEDS: BLOOD SUGAR DIAGNOSTIC 1 EACH STRIP IN SCH ×4 (06:46→22:36)
--- NOTE | 2017-09-01 06:55 | NUR ---
RN CLOSING NOTES PATIENT RESTING IN BED, EASILY AROUSABLE TO NAME. A/OX3. NO SIGNS OF DISTRESS OR DISCOMFORT. BREATHING EVEN AND UNLABORED. ON 4LPM O2 VIA NC. IV ACCESS IN RAC, PATENT AND INTACT, NO SIGNS OF REDNESS OR INFILTRATION. ALL NEEDS MET. NO SIGNIFICANT CHANGES THROUGH THE NIGHT. REPOSITIONED Q2H AND PRN. BED IN LOW LOCKED POSITION WITH SIDE RAILS X2. CALL LIGHT WITHIN REACH. WILL ENDORSE TO AM SHIFT FOR RONAN.
--- NOTE | 2017-09-01 07:30 | NUR ---
RN OPENING NOTES RECEIVED PT. PT STABLE AND RESTING IN BED. A/OX4. NO S/S OF RESP DISTRESS OR SOB. PT HAS C/O PAIN 12/27, WILL ADDRESS PHARMACOLOGICALLY. IV ACCESS LOCATED ON RIGHT AC 20 G, CURRENTLY SL. WOUNDS NOTED ON BLE AND RFA. SAFETY MEASURES IN PLACE, CALL LIGHT WITHIN REACH. WILL CONTINUE TO MONITOR.
[2017-09-01 08:00] VITALS: BP 103/51
[2017-09-01 08:05] LABS: CALCIUM, SERUM 8.5 mg/dL (8.5-10.1); CARBON DIOXIDE 23 mmol/L (21-32); CHLORIDE 103 mmol/L (98-107); CREATININE 3.1 mg/dL (0.6-1.3); GLUCOSE 169 mg/dL (74-106); MAGNESIUM 2.2 mg/dL (1.8-2.4); PHOSPHORUS 3.2 mg/dL (2.5-4.9); SODIUM SERUM 137 mmol/L (136-145); UREA NITROGEN, BLOOD 47 mg/dL (7-18)
[2017-09-01] MEDS: HYDROMORPHONE INJ 0.5 MG/0.5 ML SYRINGE IV PRN (08:35)
[2017-09-01] MEDS: MEROPENEM 500 MG in IV NS 0.9% 50 ML IV SCH (08:35)
--- NOTE | 2017-09-01 08:38 | NUR ---
WOUND CARE CONSULT WOUND CARE RECEIVED CONSULT FOR MULTIPLE WOUNDS. WOUND CARE WILL DEFER TO SURGICAL TEAM THEY ARE CURRENTLY FOLLOWING PATIENT FOR ALL WOUNDS. PATIENT WITH CURRENT KAR AT 12, ANDREW MAX WITH ETS BARIATRIC BED ORDERED PATIENT WT IS 322LBS. ALL PRESSURE ULCER PREVENTION MEASURES ARE NOTED TO BE IN PLACE AT THIS TIME.
[2017-09-01 08:51] LABS: EOSINOPHILS % (AUTO) 0.3 % (0.0-6.0); HEMATOCRIT 32 % (39-51); HEMOGLOBIN 10.3 g/dL (13.5-17.5); LYMPHOCYTES # (AUTO) 0.5 /CMM (0.8-4.8); LYMPHOCYTES % (AUTO) 5.6 % (20.0-44.0); MEAN CORPUSCULAR HEMOGLOBIN 27 PG (26.0-33.0); MEAN CORPUSCULAR HGB CONC 32 g/dl (31.0-36.0); MEAN CORPUSCULAR VOLUME 85 fL (80-96); MONOCYTES # (AUTO) 0.6 /CMM (0.1-1.30); MONOCYTES % (AUTO) 6.2 % (2.0-12.0); NEUTROPHILS # (AUTO) 8.1 /CMM (1.8-8.9); NEUTROPHILS % (AUTO) 87.9 % (43.0-81.0); PLATELET COUNT (AUTO) 70 /CMM (150-450); RDW COEFFICIENT OF VARIATION 19.3 (11.5-15.0); WHITE BLOOD COUNT (AUTO) 9.2 K/uL (4.3-11.0)
[2017-09-01] MEDS: FERROUS SULFATE (325 MG) 325 MG/TAB TABLET PO SCH (08:57)
[2017-09-01] MEDS: GABAPENTIN 300 MG CAPSULE PO SCH ×2 (08:57→17:33)
[2017-09-01] MEDS: LACTOBACILLUS RHAMNOSUS GG 1 EACH CAP.SPRINK PO SCH ×2 (08:57→17:00)
[2017-09-01] MEDS: PANTOPRAZOLE 40 MG TABLET.DR PO SCH (08:57)
[2017-09-01] MEDS: LIDOCAINE 5% (PATCH) 1 EA PATCH TP SCH (08:57)
[2017-09-01] MEDS: AMIODARONE HCL 200 MG TABLET PO SCH (08:58)
[2017-09-01] MEDS: INSULIN GLARGINE, 100 UNIT/ML CARTRIDGE SQ SCH ×2 (08:59→22:35)
--- NOTE | 2017-09-01 11:32 | NUR ---
RN NOTES PT RECEIVING DIALYSIS BEDSIDE. AM BP MEDICATION HELD DUE TO LOW BP. ALBUMIN ORDER RECEIVED AND GIVEN DURING DIALYSIS. WILL CONTINUE TO MONITOR.
--- NOTE | 2017-09-01 12:15 | NUR ---
RN NOTES NOON BS AT 171. SLIDING SCALE HELD DUE TO PT'S LOSS OF APPETITE. SLIDING SCALE READJUSTED PER MD ORDER. TRAMADOL ADDED TO ORDERS FOR PAIN MANAGEMENT.
[2017-09-01 12:19] LABS: EOSINOPHILS % (MANUAL) 2 % (0-4); LYMPHOCYTES % (MANUAL) 4 % (16-48); MONOCYTES % (MANUAL) 6 % (0-11.0); NEUTROPHILS % (MANUAL) 88 (42-76)
[2017-09-01 12:43] VITALS: BP 89/39
[2017-09-01] MEDS: TRAMADOL HCL 50 MG TABLET PO PRN (15:02)
[2017-09-01 16:00] VITALS: BP 102/43
[2017-09-01] MEDS ORDERED: VANCOMYCIN 1 GM in IV D5W 250 ML IV ONE (17:00)
[2017-09-01] MEDS: INSULIN LISPRO/ASPART 100 UNIT/ML CARTRIDGE SQ SCH (18:30)
--- NOTE | 2017-09-01 18:49 | NUR ---
RN CLOSING NOTES PT IN BED RESTING. NO S/S OF RESP DISTRESS. NO C/O PAIN AT THIS TIME. VANCO STARTED LATE, PER LATE RECEIPT OF MED FROM PHARMACY. ALL PT NEEDS ANTICIPATED AND MET, SAFETY MEASURES IN PLACE. CALL LIGHT WITHIN REACH. WILL ENDORSE TO JEWEL DIAMETER GAUGER FOR RONAN.
--- NOTE | 2017-09-01 19:20 | NUR ---
RN OPENING NOTE RECEIVED PATIENT SITTING UP IN BED, ASLEEP BUT AROUSABLE, VERBALLY RESPONSIVE, NOTED WITH NO SOB, IN NO ACUTE DISTRESS AT THIS TIME. ALL PATIENT'S NEEDS ATTENDED TO, CALL LIGHT PLACED WITHIN EASY REACH. WILL CONTINUE TO MONITOR PT.
[2017-09-01 20:00] VITALS: BP 94/40
[2017-09-01 21:30] VITALS: BP 108/42
[2017-09-01] MEDS: ATORVASTATIN 10 MG TABLET PO SCH (22:40)
[2017-09-02] VITALS (17 sets, daily range): BP systolic 94–143; BP diastolic 36–53
[2017-09-02] MEDS ORDERED: Z GUARD REMEDY 2 OZ OINT TP PRN (05:00)
[2017-09-02] MEDS ORDERED: HYDROGEL DRESSING 90 GM TUBE TP PRN (05:00)
[2017-09-02] MEDS: BLOOD SUGAR DIAGNOSTIC 1 EACH STRIP IN SCH ×4 (05:53→22:33)
[2017-09-02] MEDS: INSULIN REGULAR, HUMAN 100 UNIT/ML 3 ML VIAL SQ PRN ×5 (05:59→22:37)
--- NOTE | 2017-09-02 06:42 | NUR ---
RN CLOSING NOTE PATIENT IN BED, ASLEEP BUT EASILY AROUSABLE, VERBALLY RESPONSIVE AND IS IN NO ACUTE DISTRESS. PATIENT CONTINUES TO RECEIVE O2 VIA NC @ 4LPM WITH O2 SAT @ 95%. ALL PATIENT'S NEEDS ATTENDED TO AT THIS TIME, CALL LIGHT PLACED WITHIN EASY REACH. PLACED BED IN LOW POSITION AND LOCKED IN PLACE. WILL ENDORSE TO AM SHIFT NURSE FOR CONTINUITY OF CARE.
[2017-09-02 07:00] LABS: CALCIUM, SERUM 8.7 mg/dL (8.5-10.1); CARBON DIOXIDE 24 mmol/L (21-32); CHLORIDE 101 mmol/L (98-107); CREATININE 3.6 mg/dL (0.6-1.3); GLUCOSE 239 mg/dL (74-106); POTASSIUM 4.5 mmol/L (3.5-5.1); SODIUM SERUM 134 mmol/L (136-145); UREA NITROGEN, BLOOD 59 mg/dL (7-18)
--- NOTE | 2017-09-02 08:08 | NUR ---
MS RN OPENING NOTE RECEIVED BEDSIDE SBAR REPORT ON THE PATEIN. PATIENT IS A/O X3, ASLEEP, EASILY AWAKEN IN BED. BED IS LOCKED IN LOWEST POSITION, SIDE RAILS UP X3. SPO2 96% ON 3L VIA NC. CHEST IS RISING EQUALLY BILATERALLY. DENIES PAIN/DISCOMFORT AT THIS TIME. ALL BELONGINGS WITHIN REACH. ALL NEEDS ARE MET. CALL LIGHT WITHIN REACH. EDUCATED THE PATIENT TO CALL FOR ASSISTANCE USING THE CALL LIGHT. VERBALIZED UNDERSTANDING. WILL CONTINUE TO ASSESS, MONITOR THROUGHOUT THE SHIFT.
--- NOTE | 2017-09-02 08:17 | NUR ---
DOCUMENTED PREVIOUS SHIFT'S MEDICATIONS NON-ADMINISTERED TO RID OF THE RED PASSED DUE REMINDER
[2017-09-02] MEDS: INSULIN LISPRO/ASPART 100 UNIT/ML CARTRIDGE SQ SCH ×2 (09:00→18:28)
[2017-09-02] MEDS: AMIODARONE HCL 200 MG TABLET PO SCH (09:00)
[2017-09-02] MEDS ORDERED: NYSTATIN TOP POWDER 15 GM BOTTLE TP SCH (09:00)
[2017-09-02] MEDS: HYDROGEL DRESSING 90 GM TUBE TP SCH (09:17)
[2017-09-02] MEDS: LACTOBACILLUS RHAMNOSUS GG 1 EACH CAP.SPRINK PO SCH ×2 (09:17→16:57)
[2017-09-02] MEDS: NYSTATIN TOP POWDER 15 GM BOTTLE TP SCH (09:17)
[2017-09-02] MEDS: Z GUARD REMEDY 2 OZ OINT TP SCH (09:17)
[2017-09-02] MEDS: GABAPENTIN 300 MG CAPSULE PO SCH ×2 (09:19→16:57)
[2017-09-02] MEDS: PANTOPRAZOLE 40 MG TABLET.DR PO SCH (09:20)
[2017-09-02] MEDS: FERROUS SULFATE (325 MG) 325 MG/TAB TABLET PO SCH (09:20)
--- NOTE | 2017-09-02 09:32 | NUR ---
HD AT THE BEDSIDE.
[2017-09-02] MEDS: INSULIN GLARGINE, 100 UNIT/ML CARTRIDGE SQ SCH ×2 (09:38→22:35)
[2017-09-02] MEDS: LIDOCAINE 5% (PATCH) 1 EA PATCH TP SCH (09:41)
[2017-09-02] MEDS: ALBUMIN 25% 25 GM in PREMIX 1 EA IV PRN (12:55)
[2017-09-02] MEDS: HYDROCODONE/APAP 5/325MG 1 EACH TABLET PO PRN (13:06)
--- NOTE | 2017-09-02 13:09 | NUR ---
patient asked for pain medications. Upon administration stated he doesn't want [place]. Returned to the bin with a whiteness according to protocol.
[2017-09-02] MEDS ORDERED: IV NS 0.9% 1,000 ML IV PRN (13:19)
[2017-09-02 13:52] LABS: ABG OXYGEN SATURATION 95.4 % (92.0-98.5); ABG PCO2 58.1 mmHg (35.0-45.0); ABG PH 7.276 (7.350-7.450); ABG PO2 90.4 mmHg (75.0-100.0); AaDO2 106.2 mmHg; COHb 0.5 % (0.5-1.5); MetHb 0.3 % (0.0-1.5); O2Hb 94.6 % (94.0-97.0); SITE, ABG Left Brachial; VENT MODE, BG NASAL CANNULA
[2017-09-02] MEDS: ALBUTEROL HALF STRENGTH 1.25 MG/3 ML VIAL.NEB NEB SCH ×4 (14:30→23:00)
--- NOTE | 2017-09-02 14:46 | NUR ---
Pt received from [facility] and placed on BiPAP (AVAPS mode) per MD order. Mepilex placed on face, skin is intact. BiPAP plugged into a red outlet, alarms are set and audible, and BVM is at bedside Addendum: 09/02/17 at 1527 by PATIENCE LAKE RT Amended: Links added.
[2017-09-02] MEDS: IPRATROPIUM NEB FS 0.5 MG/2.5 ML AMPUL.NEB NEB SCH ×3 (14:57→23:00)
--- NOTE | 2017-09-02 15:00 | NUR ---
Patient is transferred to ICU room 254. SBAR report given to accepting nurse for RONAN
--- NOTE | 2017-09-02 15:06 | NUR ---
PT RECVD IN ICU AFTER DR. SNOW EVALUATED ON , ORDERED TO TRANSFER AND PLACE ON BIPAP. IN ICU PT PLACED ON BIPAP, DR SNOW ON THE UNIT ORDERS THE SETTINGS AND FOLLOW UP ABG IN 1 HR. PT IS ALERT TO NAME, FOLLOWS COMMANDS BUT IS MORE LETHARGIC THAN HIS BASELINE REPORTED BY CHARLEE BA RN WHO HAS TAKEN CARE OF THE PT MULTIPLE DAYS. PT HAD HD TODAY AND 1.3 LITERS REMOVED (HE HAD HD YESTERDAY TOO 4 LITERS REMOVED). AFIB ON THE MONITOR IN THE 80'S SBP IN 90-110s SPO2 CONSISTENTLY ABOVE 93% WHILE ON THE BIPAP, PT RESTING BUT AROUSABLE TO PHYSICAL STIMULI.
[2017-09-02 15:59] LABS: ABG BASE EXCESS -0.2 mmol/L; ABG OXYGEN SATURATION 94.7 % (92.0-98.5); ABG PH 7.298 (7.350-7.450); AaDO2 103.5 mmHg; COHb 0.8 % (0.5-1.5); MetHb 0.1 % (0.0-1.5); O2Hb 93.8 % (94.0-97.0); SITE, ABG Right Brachial; VT, ABG 600 mL
--- NOTE | 2017-09-02 16:51 | NUR ---
DR. SNOW SHOWN THE FOLLOW UP ABG RESULTS WHILE ON BIPAP, HE ORDERS TO INCREASE TV TO 700 AND ABG IN THE AM. KEEP BIPAP ON.
--- NOTE | 2017-09-02 16:58 | NUR ---
HELD LACTOBACILLUS AND NEURONTIN, PT IS ON BIPAP AND DR. SNOW ORDERS TO KEEP ON BIPAP OVERNIGHT WITH ABG IN THE AM. PT IS ALSO LETHARGIC AROUSABLE TO PHYSICAL STIMULI.
--- NOTE | 2017-09-02 17:21 | NUR ---
DR. WETZEL PLACED ORDER WHILE PT WAS ON FOR 500ML BOLUS AT 125ML/H. DR. SNOW ON THE UNIT I ASKED HIM ABOUT THIS ORDER IN LIGHT OF THE PT'S CHF AND ESRD, HE AGREES WITH ADMINISTRATION OF ONE TIME BOLUS 500ML @ 125ML/H. ORDERS CARRIED OUT.
--- NOTE | 2017-09-02 19:23 | NUR ---
PT. RECEIVED ON AVAPS MODE WITH PARAMETERS BELLOW ORDER: MODE: AVAPS TARGET VT 700ML EPAP : 5 MIN P: 10 / MAX P: 25 RATE: 12 FIO2 35% B/S BILATERAL FINE RALES / CRACKLES. ALANNAH SAXENA@ HOB. Addendum: 09/02/17 at 2036 by OLIVIA PIEDRA RT Amended: Links added.
[2017-09-02] MEDS: VANCOMYCIN 500 MG in IV NS 0.9% 100 ML IV PRN (19:29)
--- NOTE | 2017-09-02 20:20 | NUR ---
RN NOTES RECEIVED PT WITH BIPAP AVAPS MODE WITH SETTING RATE 12,TV 700 FIO2 35% AND EPAP 5 . TOLERATED WELL SATING 98%. NO ACUTE RESP DISTRESS. PT IS AOX3 VERBALIZED NEEDS AND FEELINGS. TELE MONITOR REVEALS A- FIB HR 77. DENIES PAIN AT THIS TIME. IV SITE ON LAC G 20 , RIGHT WRIST G 20 AND RFA G 22 INTACT AND PATENT. LCW HD CATH CLEANED NO LEAKING OR BLEEDING SHOWN ON THE SITE. WARM TO TOUCH, AFEBRILE. KEPT PT CLEAN AND COMFORTABLE IN BED. REDUCED PRESSURE TO BONY PROMINENCE AREA. OFFLOADED EXT WITH PILLOWS. AND REPOSITIONED PT COMFORTABLE. WILL FREQ. MONITOR.
[2017-09-02] MEDS: TRAMADOL HCL 50 MG TABLET PO PRN (23:55)
[2017-09-03] VITALS (32 sets, daily range): BP systolic 90–122; BP diastolic 34–75
--- NOTE | 2017-09-03 | NUR ---
RN NOTES PT COMPLAIN OF GENERALIZED BODY PAIN AT SCALE OF 6/10 OFFERED PAIN MEDICINE AND REQUESTED TO TAKE TRAMADOL. PRN ULTRAM MEDICINE GIVEN ORDERED. AND WILL FOLLOW UP EFFECTIVENESS WILL CONTINUE TO MONITOR.
--- NOTE | 2017-09-03 00:35 | NUR ---
RN NOTES PT ASLEEP AT THIS TIME. BIPAP KEPT ON AND TOLERATED WELL. PRN PAIN MEDICINE EFFECTIVE NO FACIAL COMPLAIN OF PAIN. WILL CLOSELY MONITOR.
[2017-09-03] MEDS: IPRATROPIUM NEB FS 0.5 MG/2.5 ML AMPUL.NEB NEB SCH ×6 (02:07→23:17)
[2017-09-03] MEDS: ALBUTEROL HALF STRENGTH 1.25 MG/3 ML VIAL.NEB NEB SCH ×6 (02:07→23:17)
[2017-09-03 05:40] LABS: CALCIUM, SERUM 8.1 mg/dL (8.5-10.1); CARBON DIOXIDE 26 mmol/L (21-32); CHLORIDE 103 mmol/L (98-107); CREATININE 3.3 mg/dL (0.6-1.3); GLUCOSE 163 mg/dL (74-106); POTASSIUM 4.2 mmol/L (3.5-5.1); SODIUM SERUM 138 mmol/L (136-145); UREA NITROGEN, BLOOD 54 mg/dL (7-18)
--- NOTE | 2017-09-03 06:50 | NUR ---
RN NOTES PT REMAINED IN STABLE CONDITION THROUGHOUT THE SHIFT. BIPAP KEPT ON AND TOLERATED WELL. AFEBRILE. NO ACUTE RESP DISTRESS. WOUND DRESSING CHANGED. BED BATH DONE. NO SIGNIFICANT CHANGED NOTED. KEPT PT CLEAN AND DRY. WILL ENDORSED CONTINUITY OF CARE TO AM NURSE.
[2017-09-03] MEDS: BLOOD SUGAR DIAGNOSTIC 1 EACH STRIP IN SCH ×4 (07:44→22:09)
--- NOTE | 2017-09-03 07:58 | NUR ---
PT TOLERATED BIPAP OVER NIGHT. THIS MORNING HE IS LESS LETHARGIC THAN YESTERDAY, AROUSABLE TO VERBAL STIMULI FOLLOWS COMMANDS. I EXPLAINED TO HIM THE PLAN FOR ABG AND TRYING TO GET HIM OFF THE BIPAP TODAY.
--- NOTE | 2017-09-03 08:15 | NUR ---
TYE PRUITT ORDER FOR PICC LINE INSERTION. PT NOT ON PRESSORS BUT BP IS LABILE AND HE HAS HD SCHEDULED FOR TODAY.
--- NOTE | 2017-09-03 08:34 | NUR ---
TYE SEXTON IN TO EVAL PT. HE SPEAKS WITH DR. WETZEL ON THE PHONE ABOUT PT'S AFIB AND PT NOT ON ANTICOAGULANTS. HE WAS SINUS WHILE IN MEDSURG AND BACK IN AFIB NOW DUE TO HIS CONDITION. DR. WETZEL STATES HE WILL PUT IN ORDER FOR ANTICOAGS.
[2017-09-03 08:43] LABS: ABG BASE EXCESS -1.1 mmol/L; ABG OXYGEN SATURATION 95.8 % (92.0-98.5); ABG PCO2 51.4 mmHg (35.0-45.0); ABG PH 7.313 (7.350-7.450); ABG PO2 91.7 mmHg (75.0-100.0); AaDO2 98.1 mmHg; COHb 0.6 % (0.5-1.5); MetHb 0.3 % (0.0-1.5); O2Hb 94.9 % (94.0-97.0); SITE, ABG Right Radial; VENT MODE, BG AVAPS 5 EPAP; VT, ABG 700 mL
[2017-09-03 08:45] LABS: BASOPHILS % (AUTO) 0.3 % (0.0-2.0); EOSINOPHILS # (AUTO) 0.1 /CMM (0.0-0.7); EOSINOPHILS % (AUTO) 1.5 % (0.0-6.0); HEMATOCRIT 32 % (39-51); HEMOGLOBIN 10.1 g/dL (13.5-17.5); LYMPHOCYTES # (AUTO) 0.9 /CMM (0.8-4.8); LYMPHOCYTES % (AUTO) 10.2 % (20.0-44.0); MEAN CORPUSCULAR HEMOGLOBIN 27 PG (26.0-33.0); MEAN CORPUSCULAR HGB CONC 32 g/dl (31.0-36.0); MEAN CORPUSCULAR VOLUME 85 fL (80-96); MONOCYTES # (AUTO) 0.8 /CMM (0.1-1.30); MONOCYTES % (AUTO) 8.5 % (2.0-12.0); NEUTROPHILS % (AUTO) 79.5 % (43.0-81.0); RDW COEFFICIENT OF VARIATION 18.7 (11.5-15.0); RED BLOOD CELL COUNT(AUTO) 3.76 MIL/uL (4.5-6.0); WHITE BLOOD COUNT (AUTO) 8.8 K/uL (4.3-11.0)
[2017-09-03 09:11] LABS: PLATELET COUNT (AUTO) 46 /CMM (150-450)
[2017-09-03 09:23] LABS: BAND % (MANUAL) 1 % (0.0-5.0); LYMPHOCYTES % (MANUAL) 13 % (16-48); MONOCYTES % (MANUAL) 12 % (0-11.0); NEUTROPHILS % (MANUAL) 74 (42-76)
[2017-09-03] MEDS: LACTOBACILLUS RHAMNOSUS GG 1 EACH CAP.SPRINK PO SCH ×2 (09:24→17:34)
[2017-09-03] MEDS: FERROUS SULFATE (325 MG) 325 MG/TAB TABLET PO SCH (09:24)
[2017-09-03] MEDS: PANTOPRAZOLE 40 MG TABLET.DR PO SCH (09:24)
[2017-09-03] MEDS: GABAPENTIN 300 MG CAPSULE PO SCH ×2 (09:24→17:34)
[2017-09-03] MEDS: Z GUARD REMEDY 2 OZ OINT TP SCH (09:25)
[2017-09-03] MEDS: HYDROGEL DRESSING 90 GM TUBE TP SCH (09:25)
[2017-09-03] MEDS: LIDOCAINE 5% (PATCH) 1 EA PATCH TP SCH (09:25)
[2017-09-03] MEDS: NYSTATIN TOP POWDER 15 GM BOTTLE TP SCH (09:25)
--- NOTE | 2017-09-03 09:32 | NUR ---
TYE SEXTON NOTIFIED ABOUT LOW PLATELET SAT 46, HE STATES HE WILL GET DR. العراقي ON THE CASE NO OTHER ORDERS.
[2017-09-03] MEDS: INSULIN LISPRO/ASPART 100 UNIT/ML CARTRIDGE SQ SCH ×2 (10:25→18:00)
[2017-09-03] MEDS: INSULIN REGULAR, HUMAN 100 UNIT/ML 3 ML VIAL SQ PRN ×4 (10:25→22:12)
[2017-09-03] MEDS: RIVAROXABAN 10 MG TABLET PO SCH ×2 (10:57→17:00)
[2017-09-03] MEDS: TRAMADOL HCL 50 MG TABLET PO PRN (10:58)
[2017-09-03 11:22] LABS: ABG BASE EXCESS -1.4 mmol/L; ABG PCO2 47.4 mmHg (35.0-45.0); ABG PH 7.334 (7.350-7.450); ABG PO2 96.5 mmHg (75.0-100.0); AaDO2 61.7 mmHg; COHb 0.9 % (0.5-1.5); MetHb 0.3 % (0.0-1.5); O2Hb 94.8 % (94.0-97.0); SITE, ABG Right Radial; VENT MODE, BG NC 4L
--- NOTE | 2017-09-03 11:42 | NUR ---
DIETARY RECOMMENDS NOVASOURCE RENAL BOX TID WITH MEALS SINCE THE PT IS NOT EATING ADEQUATELY ENOUGH.
[2017-09-03] MEDS: RENAL NOVASOURCE (8OZ) 1 EA BOX PO SCH ×2 (12:36→17:35)
[2017-09-03] MEDS: ALBUMIN 25% 25 GM in PREMIX 1 EA IV PRN ×3 (13:27→14:14)
[2017-09-03] MEDS: AMIODARONE HCL 200 MG TABLET PO SCH ×2 (13:54→17:41)
--- NOTE | 2017-09-03 14:06 | NUR ---
HD ONGOING, HD NURSE USED 2 ALBUMINS ALREADY BLOOD PRESSURE IN THE 90'S I TOLD HER TO SLOW DOWN THE PT IS NOT ON PRESSORS.
--- NOTE | 2017-09-03 15:29 | NUR ---
HD COMPLETE 4 LITERS REMOVED
--- NOTE | 2017-09-03 15:31 | NUR ---
PT REFUSING TO HAVE THE BED CHANGED AT THIS TIME, HE DOES NOT HAVE BM, BUT I ENCOURAGED ME TO LET ME AT LEAST CHANGE THE SHEETS AND HIS GOWN BUT HE STATES HE WANTS IT LATER. HE IS MORE DROWSY AT THIS TIME BUT SATTING AT 100% ON 3L NC. SBP 109 AFTER HD. WILL TRY AGAIN LATER.
[2017-09-03] MEDS: VANCOMYCIN 500 MG in IV NS 0.9% 100 ML IV PRN (17:49)
--- NOTE | 2017-09-03 17:50 | NUR ---
PT HAS EPISODE OF BLOODY NOSE. HELD [address] العراقي ON THE UNIT AND REPORTED TO HER THE NOSEBLEEDING, AGREES WITH HOLDING THE XARELTO IN LIGHT OF THE PT'S LOW PLATELET LEVEL. SHE DOESN'T GIVE THE ORDER TO DC XARELTO BUT TO LET DR. WETZEL KNOW IN THE AM FOR ADJUSTMENT OR DC.
--- NOTE | 2017-09-03 18:42 | NUR ---
PT SIGNED CONSENT FOR PICC, HE IS ACTUALLY REQUESTING FOR PICC LINE STATES HE IS TIRED OF ALL THE NEEDLE STICKS. HOUSE SUP NOTIFIED, AND MIRNA STATES HE IS COMING TONIGHT.
[2017-09-03] MEDS: GUAIFENESIN/D-METHORPHAN HB 5 ML UDC PO PRN (19:30)
--- NOTE | 2017-09-03 19:47 | NUR ---
RN NOTES PT IS AWAKE WATCHING TV ON BED AOX3. ABLE TO VERBALIZED FEELINGS. TELE MONITOR READS A-FIB HR 91 NO ACUTE RESP DISTRESS. WITH O2 4LPM VIA NC SATING WELL. BILATERAL BREATH SOUND DIMINISHED. NOTED PT IS COUGHING HARD AND SNEEZE SMALL AMT OF CLOT BLOOD FROM HIS NOSE PER MORNING NURSE PT HAD AN EPISODE ALSO THIS MORNING. AND MD IS AWARE AWAITING FOR DR. WETZEL TO DECIDE ABOUT XARELTO. PRN COUGH MEDS GIVEN ORDERED. MADE AWARE ABOUT PLAN OF CARE BY PUTTING PICC LINE ANYTIME TONIGHT. KEPT PT CLEAN AND DRY WILL CONTINUE TO MONITOR.
[2017-09-03] MEDS: INSULIN GLARGINE, 100 UNIT/ML CARTRIDGE SQ SCH (22:11)
--- NOTE | 2017-09-03 23:00 | NUR ---
RN NOTES MIDLINE INSERTED
[2017-09-04] VITALS (31 sets, daily range): BP systolic 81–133; BP diastolic 25–72
[2017-09-04] MEDS: IPRATROPIUM NEB FS 0.5 MG/2.5 ML AMPUL.NEB NEB SCH ×5 (03:06→19:46)
[2017-09-04] MEDS: ALBUTEROL HALF STRENGTH 1.25 MG/3 ML VIAL.NEB NEB SCH ×5 (03:06→19:46)
[2017-09-04 04:46] LABS: BASOPHILS % (AUTO) 0.2 % (0.0-2.0); EOSINOPHILS # (AUTO) 0.2 /CMM (0.0-0.7); EOSINOPHILS % (AUTO) 1.6 % (0.0-6.0); HEMATOCRIT 31 % (39-51); HEMOGLOBIN 10.1 g/dL (13.5-17.5); LYMPHOCYTES # (AUTO) 0.7 /CMM (0.8-4.8); LYMPHOCYTES % (AUTO) 6.2 % (20.0-44.0); MEAN CORPUSCULAR HEMOGLOBIN 28 PG (26.0-33.0); MEAN CORPUSCULAR HGB CONC 32 g/dl (31.0-36.0); MEAN CORPUSCULAR VOLUME 86 fL (80-96); MONOCYTES # (AUTO) 0.5 /CMM (0.1-1.30); MONOCYTES % (AUTO) 3.8 % (2.0-12.0); NEUTROPHILS # (AUTO) 10.5 /CMM (1.8-8.9); NEUTROPHILS % (AUTO) 88.2 % (43.0-81.0); RDW COEFFICIENT OF VARIATION 18.9 (11.5-15.0); RED BLOOD CELL COUNT(AUTO) 3.63 MIL/uL (4.5-6.0); WHITE BLOOD COUNT (AUTO) 11.9 K/uL (4.3-11.0)
[2017-09-04 05:00] LABS: INR 1.32 (0.87-1.13)
[2017-09-04 05:07] LABS: CALCIUM, SERUM 8.2 mg/dL (8.5-10.1); CARBON DIOXIDE 27 mmol/L (21-32); CHLORIDE 103 mmol/L (98-107); CREATININE 3.8 mg/dL (0.6-1.3); GLUCOSE 181 mg/dL (74-106); MAGNESIUM 2.2 mg/dL (1.8-2.4); PHOSPHORUS 3.8 mg/dL (2.5-4.9); POTASSIUM 4.3 mmol/L (3.5-5.1); SODIUM SERUM 138 mmol/L (136-145); UREA NITROGEN, BLOOD 65 mg/dL (7-18); VANCOMYCIN,TROUGH 19 ug/ml (12-20)
[2017-09-04 05:11] LABS: IRON, SERUM 15 ug/dl (50-175); TOTAL IRON BINDING CAPACITY 106 ug/dl (250-450)
[2017-09-04 05:21] LABS: FERRITIN 830 ng/mL (8-388)
[2017-09-04 05:42] LABS: PLATELET COUNT (AUTO) 44 /CMM (150-450)
[2017-09-04 05:46] LABS: NEUTROPHILS % (MANUAL) 87 (42-76)
[2017-09-04 05:47] LABS: LYMPHOCYTES % (MANUAL) 6 % (16-48); MONOCYTES % (MANUAL) 7 % (0-11.0)
--- NOTE | 2017-09-04 06:58 | NUR ---
RN NOTES PT ASLEEP WELL ON BED NO SIGNIFICANT CHANGES. TOLERATED O2 4LPM VIA NC. REMAINED A-FIB HR 90 SATING 98% . STILL COUGHING AT TIMES. NO MORE ACTIVE BLEEDING NOTED. INFORMED MORNING NURSE TO FOLLOW UP TEGAN TO MD DUE TO PT HAD AN EPISODE OF NOSE BLEED LAST NIGHT. PT KEPT CLEAN AND DRY. WILL ENDORSED CONTINUITY OF CARE TO AM NURSE.
--- NOTE | 2017-09-04 07:15 | NUR ---
ICU/RN: Pt received off BiPAP, awake and alert, drowsy but able to follow commands. SPO2 >99%. Will cont to monitor pt.
[2017-09-04] MEDS: PANTOPRAZOLE 40 MG TABLET.DR PO SCH (07:30)
[2017-09-04] MEDS: RENAL NOVASOURCE (8OZ) 1 EA BOX PO SCH ×3 (08:00→17:00)
--- NOTE | 2017-09-04 08:05 | NUR ---
ICU/RN: Pt noted to be increasingly lethargic during am care. Breakfast and PO meds held. Placed back on BiPAP to ordered settings.
[2017-09-04 08:06] LABS: ABG BASE EXCESS -3.5 mmol/L; ABG PCO2 58.2 mmHg (35.0-45.0); AaDO2 80.1 mmHg; COHb 0.7 % (0.5-1.5); MetHb 0.3 % (0.0-1.5); O2Hb 93.1 % (94.0-97.0); SITE, ABG Right Radial; VENT MODE, BG NASAL CANNULA
[2017-09-04] MEDS: BLOOD SUGAR DIAGNOSTIC 1 EACH STRIP IN SCH ×4 (08:27→22:25)
[2017-09-04] MEDS: AMIODARONE HCL 200 MG TABLET PO SCH ×3 (08:29→17:00)
[2017-09-04] MEDS: GABAPENTIN 300 MG CAPSULE PO SCH ×2 (08:29→17:00)
[2017-09-04] MEDS: FERROUS SULFATE (325 MG) 325 MG/TAB TABLET PO SCH (08:29)
[2017-09-04] MEDS: LACTOBACILLUS RHAMNOSUS GG 1 EACH CAP.SPRINK PO SCH ×2 (08:30→17:00)
[2017-09-04] MEDS: CADEXOMER IODINE 40 GM TUBE TP SCH (08:31)
[2017-09-04] MEDS: LIDOCAINE 5% (PATCH) 1 EA PATCH TP SCH ×2 (08:31→17:00)
[2017-09-04] MEDS: Z GUARD REMEDY 2 OZ OINT TP SCH (08:32)
[2017-09-04] MEDS: NYSTATIN TOP POWDER 15 GM BOTTLE TP SCH (08:33)
[2017-09-04] MEDS: INSULIN REGULAR, HUMAN 100 UNIT/ML 3 ML VIAL SQ PRN (08:37)
[2017-09-04] MEDS: INSULIN LISPRO/ASPART 100 UNIT/ML CARTRIDGE SQ SCH ×2 (08:38→18:09)
--- NOTE | 2017-09-04 09:10 | NUR ---
ICU/RN: Dr Madden rounds; discussed abn labs, critical plt count. Informed that Dr Peterson wants to continue current dose of Xarelto for A-fib and was informed of episodes of epistaxis yesterday. Pt kept NPO due to respiratory status and was not given PO meds dt pt lethargy. Per Dr Madden continue to hold Xarelto and he will "talk to Dr Peterson about it in a few hours."
[2017-09-04] MEDS ORDERED: ALBUMIN 25% 25 GM in PREMIX 1 EA IV PRN (10:30)
[2017-09-04] MEDS: ALBUMIN 25% 25 GM in PREMIX 1 EA IV PRN ×2 (10:50→11:29)
[2017-09-04 14:29] LABS: ABG BASE EXCESS -2.8 mmol/L; ABG OXYGEN SATURATION 96.7 % (92.0-98.5); ABG PH 7.315 (7.350-7.450); ABG PO2 108.8 mmHg (75.0-100.0); AaDO2 86.1 mmHg; COHb 0.8 % (0.5-1.5); MetHb 0.3 % (0.0-1.5); O2Hb 95.6 % (94.0-97.0); PEEP,BG 5 cm H2O; SITE, ABG Right Radial; VT, ABG 700 mL
--- NOTE | 2017-09-04 15:30 | NUR ---
ICU/RN: Bed bath, wound care rendered. Pt much more awake and alert. Follows some commands.
[2017-09-04] MEDS: APIXABAN 2.5 MG TABLET PO SCH (17:00)
--- NOTE | 2017-09-04 17:00 | NUR ---
ICU/RN: Pt c/o R knee pain; administered 0900 Fentanyl dose pt refused in am.
[2017-09-04] MEDS: VANCOMYCIN 500 MG in IV NS 0.9% 100 ML IV PRN (18:09)
--- NOTE | 2017-09-04 18:45 | NUR ---
ICU/RN: Dr James rounds; informed of plt drop, no active bleeding, epistaxis throughout shift. With orders to hold zeina garcia.
--- NOTE | 2017-09-04 22:10 | NUR ---
ICU/MINE LABORER PT'S BLOOD SUGAR IS 212 THIS WAS COVERED WITH 32 UNITS LANTUS, WILL CONTINUE TO COVER BLOOD SUGARS ORDERED BY MD. PT WAS TURNED AND REPOSITIONED FOR COMFORT AND CARE
[2017-09-04] MEDS: ACETAMINOPHEN 325 MG TABLET PO PRN (22:25)
--- NOTE | 2017-09-04 22:30 | NUR ---
ICU/DIRECTOR INFORMATION SECURITY TYLENOL 650MG GIVEN FOR PAIN TO THE RIGHT LEG, RATED AT 5/10. CALL LIGHT WITHIN REACH. WILL CONTINUE TO MONITOR PT'S PAIN.
[2017-09-04] MEDS: INSULIN GLARGINE, 100 UNIT/ML CARTRIDGE SQ SCH (22:33)
[2017-09-05] VITALS (32 sets, daily range): BP systolic 85–132; BP diastolic 31–95
[2017-09-05] MEDS: IPRATROPIUM NEB FS 0.5 MG/2.5 ML AMPUL.NEB NEB SCH ×7 (00:08→23:17)
[2017-09-05] MEDS: ALBUTEROL HALF STRENGTH 1.25 MG/3 ML VIAL.NEB NEB SCH ×7 (00:08→23:17)
--- NOTE | 2017-09-05 02:10 | NUR ---
ICU/PBX TEACHER ULTRUM PO GIVEN FOR PAIN TO THE RIGHT LEG, RATED AT 9/10. CALL LIGHT WITHIN REACH. WILL CONTINUE TO MONITOR PT'S PAIN. PT WAS TURNED AND REPOSITIONED FOR COMFORT AND CARE.
[2017-09-05] MEDS: TRAMADOL HCL 50 MG TABLET PO PRN ×2 (02:35→13:13)
--- NOTE | 2017-09-05 03:05 | NUR ---
ICU/INTERNET MARKETING DIRECTOR NORCO PO 1 TAB GIVEN FOR PAIN TO THE RIGHT LEG, RATED AT 8/10. CALL LIGHT WITHIN REACH. WILL CONTINUE TO MONITOR PT'S PAIN
--- NOTE | 2017-09-05 03:40 | NUR ---
ICU/DISABILITY REPRESENTATIVE TYLENOL 650MG GIVEN FOR PAIN TO THE RIGHT LEG, RATED AT 5/10. CALL LIGHT WITHIN REACH. WILL CONTINUE TO MONITOR PT'S PAIN
[2017-09-05] MEDS: ACETAMINOPHEN 325 MG TABLET PO PRN (03:44)
[2017-09-05] MEDS: HYDROCODONE/APAP 5/325MG 1 EACH TABLET PO PRN ×2 (03:44→10:47)
--- NOTE | 2017-09-05 04:20 | NUR ---
ICU/CRIME SCENE INVESTIGATOR PT WAS GIVEN AM CARE, ALONG WITH ORAL CARE AT THIS TIME. DRESSING CHANGED WAS DONE AT THIS TIME POST BATH. PT TOLERATED THIS WELL. PT WAS THEN TURNED AND REPOSITIONED FOR COMFORT AND CARE.
[2017-09-05 05:33] LABS: CALCIUM, SERUM 8.2 mg/dL (8.5-10.1); CARBON DIOXIDE 23 mmol/L (21-32); CHLORIDE 102 mmol/L (98-107); CREATININE 4.3 mg/dL (0.6-1.3); GLUCOSE 167 mg/dL (74-106); POTASSIUM 4.3 mmol/L (3.5-5.1); SODIUM SERUM 137 mmol/L (136-145); UREA NITROGEN, BLOOD 76 mg/dL (7-18)
[2017-09-05 06:45] LABS: INR 1.18 (0.87-1.13)
[2017-09-05 06:46] LABS: D-DIMER 4.92 mg/L(FEU (0.17-0.50)
[2017-09-05] MEDS: BLOOD SUGAR DIAGNOSTIC 1 EACH STRIP IN SCH ×4 (08:50→21:59)
[2017-09-05] MEDS: PANTOPRAZOLE 40 MG TABLET.DR PO SCH (08:51)
[2017-09-05] MEDS: LACTOBACILLUS RHAMNOSUS GG 1 EACH CAP.SPRINK PO SCH ×2 (08:51→17:48)
[2017-09-05] MEDS: FERROUS SULFATE (325 MG) 325 MG/TAB TABLET PO SCH (08:51)
[2017-09-05] MEDS: GABAPENTIN 300 MG CAPSULE PO SCH ×2 (08:51→17:48)
[2017-09-05] MEDS: APIXABAN 2.5 MG TABLET PO SCH ×2 (08:52→17:00)
[2017-09-05] MEDS: LIDOCAINE 5% (PATCH) 1 EA PATCH TP SCH (08:52)
[2017-09-05] MEDS: NYSTATIN TOP POWDER 15 GM BOTTLE TP SCH (08:53)
[2017-09-05] MEDS: Z GUARD REMEDY 2 OZ OINT TP SCH (08:53)
[2017-09-05] MEDS: CADEXOMER IODINE 40 GM TUBE TP SCH (08:53)
[2017-09-05] MEDS: RENAL NOVASOURCE (8OZ) 1 EA BOX PO SCH ×3 (08:56→17:49)
[2017-09-05] MEDS: INSULIN LISPRO/ASPART 100 UNIT/ML CARTRIDGE SQ SCH ×2 (08:56→17:55)
[2017-09-05] MEDS: AMIODARONE HCL 200 MG TABLET PO SCH ×3 (09:00→17:49)
[2017-09-05] MEDS: INSULIN REGULAR, HUMAN 100 UNIT/ML 3 ML VIAL SQ PRN ×3 (09:05→17:54)
[2017-09-05 14:43] LABS: ABG BASE EXCESS -3.3 mmol/L; ABG PCO2 47.3 mmHg (35.0-45.0); ABG PH 7.306 (7.350-7.450); AaDO2 64.3 mmHg; COHb 0.6 % (0.5-1.5); O2Hb 95.4 % (94.0-97.0); SITE, ABG Right Radial; VENT MODE, BG NASAL CANNULA
--- NOTE | 2017-09-05 19:39 | NUR ---
PT REFUSED BREATHING TX. RN NOTIFIED.
--- NOTE | 2017-09-05 19:40 | NUR ---
ICU/FOOD PROCESSING PLANT MANAGER PT PLACED ON BIPAP, PER MD ORDER TO PLACE PT ON NIGHT TIME BIPAP. PT HAS DIFFERENT SETTINGS THAN YESTERDAY NIGHT. SEE FLOW SHEET FOR THIS SETTINGS. PT WAS TURNED AND REPOSITIONED FOR COMFORT AND CARE.
--- NOTE | 2017-09-05 19:50 | NUR ---
PT PLACED ON BIPAP PER PT REQUEST. RN NOTIFIED. WILL CONTINUE TO MONITOR. Addendum: 09/05/17 at 2 by BHAVESH PULLIAM RT Amended: Links added.
[2017-09-05] MEDS: INSULIN GLARGINE, 100 UNIT/ML CARTRIDGE SQ SCH (22:01)
--- NOTE | 2017-09-05 22:20 | NUR ---
ICU/PROCESS LEAD PT'S BLOOD SUGAR WAS 223, THIS WAS COVERED WITH 32 UNITS OF LANTUS. WILL CONTINUE TO CHECK SUGAR PER MD ORDERS. PT WAS TURNED AND REPOSITIONED FOR COMFORT AND CARE.
[2017-09-06] VITALS (49 sets, daily range): BP systolic 51–123; BP diastolic 26–77
[2017-09-06] MEDS: ALBUTEROL HALF STRENGTH 1.25 MG/3 ML VIAL.NEB NEB SCH ×6 (03:05→23:15)
[2017-09-06] MEDS: IPRATROPIUM NEB FS 0.5 MG/2.5 ML AMPUL.NEB NEB SCH ×6 (03:05→23:15)
--- NOTE | 2017-09-06 03:10 | NUR ---
ICU.CHIEF FISHERY DIVISION PT'S HAD INCREASED HEART RATE TO 130'S CHARGE NURSE AWARE, ALSO AM LABS OF TROPONIN ORDERED FOR AM. WILL CONTINUE TO MONITOR PT'S VITAL SIGNS.
[2017-09-06] MEDS: ACETAMINOPHEN 325 MG TABLET PO PRN (03:18)
[2017-09-06] MEDS: HYDROCODONE/APAP 5/325MG 1 EACH TABLET PO PRN (03:18)
--- NOTE | 2017-09-06 03:45 | NUR ---
ICU/LEAD NETWORK ENGINEER PT COMPLAINED OF PAIN RATED 10/10 TO RIGHT LOWER LEG, GAVE NORCO 1 TAB ALONG WITH 650MG TYLENOL FOR THIS. PT'S LEG AND ARE DRESSINGS WERE DONE AT THIS TIME.
[2017-09-06 05:01] LABS: BASOPHILS % (AUTO) 0.3 % (0.0-2.0); EOSINOPHILS # (AUTO) 0.2 /CMM (0.0-0.7); HEMATOCRIT 30 % (39-51); HEMOGLOBIN 9.6 g/dL (13.5-17.5); LYMPHOCYTES # (AUTO) 0.7 /CMM (0.8-4.8); MEAN CORPUSCULAR HEMOGLOBIN 27 PG (26.0-33.0); MEAN CORPUSCULAR HGB CONC 33 g/dl (31.0-36.0); MEAN CORPUSCULAR VOLUME 84 fL (80-96); MONOCYTES # (AUTO) 0.8 /CMM (0.1-1.30); MONOCYTES % (AUTO) 7.9 % (2.0-12.0); NEUTROPHILS % (AUTO) 82.8 % (43.0-81.0); PLATELET COUNT (AUTO) 67 /CMM (150-450); RED BLOOD CELL COUNT(AUTO) 3.53 MIL/uL (4.5-6.0); WHITE BLOOD COUNT (AUTO) 9.7 K/uL (4.3-11.0)
[2017-09-06 05:32] LABS: EOSINOPHILS % (MANUAL) 2 % (0-4); LYMPHOCYTES % (MANUAL) 9 % (16-48); MONOCYTES % (MANUAL) 4 % (0-11.0); NEUTROPHILS % (MANUAL) 85 (42-76)
[2017-09-06 05:37] LABS: CALCIUM, SERUM 7.6 mg/dL (8.5-10.1); CARBON DIOXIDE 22 mmol/L (21-32); CHLORIDE 101 mmol/L (98-107); CREATININE 4.6 mg/dL (0.6-1.3); GLUCOSE 197 mg/dL (74-106); POTASSIUM 4.3 mmol/L (3.5-5.1); SODIUM SERUM 135 mmol/L (136-145)
[2017-09-06 05:42] LABS: UREA NITROGEN, BLOOD 90 mg/dL (7-18)
--- NOTE | 2017-09-06 06:14 | NUR ---
PT TAKEN OFF BIPAP. PLACED ON 3L NC. RN NOTIFIED. Addendum: 09/06/17 at 0615 by BHAVESH PULLIAM RT Amended: Links added.
--- NOTE | 2017-09-06 06:20 | NUR ---
ICU/ETHNIC STUDIES PROFESSOR PT PLACED ON 3 LITERS VIA N/C, PM BIPAP IS NOW OFF. PT WAS TURNED AND REPOSITIONED FOR COMFORT AND CARE. PAIN RATED AT 3/10. CALL LIGHT WITHIN REACH. NO ACUTE DISTRESS SEEN AT THIS TIME.
[2017-09-06] MEDS: BLOOD SUGAR DIAGNOSTIC 1 EACH STRIP IN SCH ×4 (07:44→21:23)
[2017-09-06] MEDS: INSULIN REGULAR, HUMAN 100 UNIT/ML 3 ML VIAL SQ PRN ×4 (07:44→21:24)
--- NOTE | 2017-09-06 07:48 | NUR ---
ICU/RN INITIAL NOTES,AM RECEIVED REPORT FROM NIGHT NURSE. PT ALERT, AWAKE, ORIENTED, FOLLOWS ALL COMMANDS. ON NASAL CANULA, 3LITERS, NO ACUTE RESPIRATORY DISTRESS NOTED. PT ON TELE, A.FIB. RIGT UPPER ARM MIDLINE, PATENT AND INTACT, NO S/S OF INFECTION OR INFILTRATION NOTED, TKO. HD CATH ON LEFT CHEST WALL, INTACT. POSSIBLE HD TODAY. PT TURNED AND REPOSITIONED, ALL NEEDS WILL BE ATTENDED TO, SAFETY MEASURES TAKEN. BED IN LOW POSITION, SIDE RAILS UP, CALL LIGHT WITHIN REACH. WILL CONTINUE CARE.
[2017-09-06] MEDS: PANTOPRAZOLE 40 MG TABLET.DR PO SCH (08:14)
[2017-09-06] MEDS: LACTOBACILLUS RHAMNOSUS GG 1 EACH CAP.SPRINK PO SCH ×2 (08:16→17:22)
[2017-09-06] MEDS: FERROUS SULFATE (325 MG) 325 MG/TAB TABLET PO SCH (08:16)
[2017-09-06] MEDS: AMIODARONE HCL 200 MG TABLET PO SCH ×3 (08:16→17:23)
[2017-09-06] MEDS: GABAPENTIN 300 MG CAPSULE PO SCH ×2 (08:16→17:22)
[2017-09-06] MEDS: APIXABAN 2.5 MG TABLET PO SCH ×2 (08:16→17:23)
[2017-09-06] MEDS: LIDOCAINE 5% (PATCH) 1 EA PATCH TP SCH (08:17)
[2017-09-06] MEDS: Z GUARD REMEDY 2 OZ OINT TP SCH (08:17)
[2017-09-06] MEDS: RENAL NOVASOURCE (8OZ) 1 EA BOX PO SCH ×3 (08:17→17:43)
[2017-09-06] MEDS: INSULIN LISPRO/ASPART 100 UNIT/ML CARTRIDGE SQ SCH ×2 (08:18→17:36)
[2017-09-06] MEDS: CADEXOMER IODINE 40 GM TUBE TP SCH (08:19)
[2017-09-06] MEDS: NYSTATIN TOP POWDER 15 GM BOTTLE TP SCH (08:19)
[2017-09-06] MEDS: ALBUMIN 25% 25 GM in PREMIX 1 EA IV PRN (12:45)
--- NOTE | 2017-09-06 15:30 | NUR ---
ICU/RN: END OF HD, 2.2L OUT. VSS, NO DISTRESS. WILL CONTINUE TO MONITOR. PER PHARMACY, WILL ADMIN POST HD VANCO
[2017-09-06] MEDS: VANCOMYCIN 500 MG in IV NS 0.9% 100 ML IV PRN (17:13)
[2017-09-06] MEDS: CITRIC ACID/SODIUM CITRATE (BICITRA)15 ML UDC PO SCH (17:22)
--- NOTE | 2017-09-06 18:41 | NUR ---
ICU/RN ENDING NOTES,AM REPORT WILL BE ENDORSED TO NIGHT NURSE FOR CONTINUATION OF CARE. ALL NEEDS ATTENDED TO, PT AAOX3. ON NASAL CANULA, NO DISTRESS. POST H.D VANCO ADMINISTERED. ALL NEEDS ATTENDED TO, SAFETY MEASURE TAKEN, BED IN LOW POSITION, SIDE RIALS UP, TURNED AND REPOSITIONED, LINENS CHANGES. WILL ENDORSE FOR CONTINUATION OF CARE. PT MELISSA.
--- NOTE | 2017-09-06 20:00 | NUR ---
RM ICU - NOTES - RECEIVED PT ALERT, AWAKE, ORIENTED, FOLLOWS ALL COMMANDS. ON NASAL CANULA, 3LITERS, NO ACUTE RESPIRATORY DISTRESS NOTED. PT ON TELE, A.FIB. RIGHT UPPER ARM MIDLINE, PATENT AND INTACT, NO S/S OF INFECTION OR INFILTRATION NOTED, TKO. HD CATH ON LEFT CHEST WALL, INTACT. POSSIBLE HD TODAY. PT TURNED AND REPOSITIONED, ALL NEEDS WILL BE ATTENDED TO, SAFETY MEASURES TAKEN. BED IN LOW POSITION, SIDE RAILS UP, CALL LIGHT WITHIN REACH. WILL CONTINUE CARE.
[2017-09-06] MEDS: INSULIN GLARGINE, 100 UNIT/ML CARTRIDGE SQ SCH (21:22)
--- NOTE | 2017-09-06 21:23 | NUR ---
PT PLACED ON NOC BIPAP. RN NOTIFIED. Addendum: 09/06/17 at 2124 by BHAVESH PULLIAM RT Amended: Links added.
[2017-09-07] VITALS (37 sets, daily range): BP systolic 84–132; BP diastolic 30–95
[2017-09-07] MEDS: ALBUTEROL HALF STRENGTH 1.25 MG/3 ML VIAL.NEB NEB SCH ×6 (02:55→23:34)
[2017-09-07] MEDS: IPRATROPIUM NEB FS 0.5 MG/2.5 ML AMPUL.NEB NEB SCH ×6 (02:55→23:34)
--- NOTE | 2017-09-07 04:53 | NUR ---
PT TAKEN OFF BIPAP. PLACED ON 2L NC Addendum: 09/07/17 at 0453 by BHAVESH PULLIAM RT Amended: Links added.
[2017-09-07 05:43] LABS: CARBON DIOXIDE 25 mmol/L (21-32); CHLORIDE 102 mmol/L (98-107); GLUCOSE 112 mg/dL (74-106); SODIUM SERUM 138 mmol/L (136-145); UREA NITROGEN, BLOOD 67 mg/dL (7-18)
--- NOTE | 2017-09-07 07:00 | NUR ---
RN NOTES RECEIVED PT ON BED, A/Ox3, FOLLOWS ALL COMMANDS.RESPIRATION EVEN AND UNLABORED ON O2 1.5 L N/C , NO SOB NOTED, O2 SAT 95%, ON NASAL CANULA, ON TELE, A.FIB, HR IN 70'S, RIGHT UPPER ARM MIDLINE, AND R WRIST IV G 20 SITES CDI, NO S/S OF INFECTION OR INFILTRATION NOTED, , HD CATH ON LEFT CHEST WALL, INTACT. SR UP x3, CALL LIGHTS WITHIN EASY REACH, SAFETY MEASURES TAKEN. BED IN LOCKED AND IN LOWEST POSITION, CALL LIGHT WITHIN REACH. WILL CONTINUE TO MONITOR CLSOELY .
[2017-09-07] MEDS: BLOOD SUGAR DIAGNOSTIC 1 EACH STRIP IN SCH ×4 (07:44→22:39)
[2017-09-07] MEDS: GUAIFENESIN/D-METHORPHAN HB 5 ML UDC PO PRN (07:54)
[2017-09-07] MEDS: RENAL NOVASOURCE (8OZ) 1 EA BOX PO SCH ×3 (08:00→16:25)
[2017-09-07] MEDS: FERROUS SULFATE (325 MG) 325 MG/TAB TABLET PO SCH (08:02)
[2017-09-07] MEDS: CITRIC ACID/SODIUM CITRATE (BICITRA)15 ML UDC PO SCH ×2 (08:02→16:24)
[2017-09-07] MEDS: LIDOCAINE 5% (PATCH) 1 EA PATCH TP SCH (08:02)
[2017-09-07] MEDS: LACTOBACILLUS RHAMNOSUS GG 1 EACH CAP.SPRINK PO SCH ×2 (08:02→16:24)
[2017-09-07] MEDS: AMIODARONE HCL 200 MG TABLET PO SCH ×3 (08:02→16:24)
[2017-09-07] MEDS: PANTOPRAZOLE 40 MG TABLET.DR PO SCH (08:03)
[2017-09-07] MEDS: GABAPENTIN 300 MG CAPSULE PO SCH ×2 (08:05→16:24)
[2017-09-07] MEDS: APIXABAN 2.5 MG TABLET PO SCH ×2 (08:06→16:24)
[2017-09-07] MEDS: INSULIN LISPRO/ASPART 100 UNIT/ML CARTRIDGE SQ SCH ×2 (08:07→17:06)
[2017-09-07] MEDS: CADEXOMER IODINE 40 GM TUBE TP SCH (08:09)
[2017-09-07] MEDS: NYSTATIN TOP POWDER 15 GM BOTTLE TP SCH (08:09)
[2017-09-07] MEDS: Z GUARD REMEDY 2 OZ OINT TP SCH (09:18)
--- NOTE | 2017-09-07 11:00 | NUR ---
RN NOTES PT AT REST , TRIP ANY DISTRESS, BM x1, CONTINUE TO MONITOR.
[2017-09-07] MEDS: HYDROCODONE/APAP 5/325MG 1 EACH TABLET PO PRN (15:02)
--- NOTE | 2017-09-07 15:15 | NUR ---
RN NOTES C/O GENERALIZED PAIN , NARCO x1 FOR PAIN , CONTINUE TO MONITOR.
[2017-09-07] MEDS: INSULIN REGULAR, HUMAN 100 UNIT/ML 3 ML VIAL SQ PRN ×2 (17:06→22:40)
--- NOTE | 2017-09-07 18:15 | NUR ---
RN NOTE PT STABLE , RESPIRATION EVEN AND UNLABORED, HR IN 80, A.FIB, NO DISTRESS NOTED, WILL BE TRANSFER TO [facility] SOON BED IS AVAILABLE, R UPPER ARM MIDLINE CDI, SR UP x3, REBECA LIGHT WITHIN EASY REACH, WILL ENDORSE TO SKIN DRIER NURSE FOR RONAN.
--- NOTE | 2017-09-07 19:39 | NUR ---
APRON WORKER NOTES RECEIVED PT IN BED, AWAKE. A/OX3. TELE READS AFIB CONTROLLED. ON O2 VIA NC AT 2 LPM. DENIES PAIN AT THIS TIME. ALL NEEDS MET. ON BARIMAX BED, HOB ELEVATED. CALL LIGHT WITHIN REACH. TURNED AND REPOSITIONED.
[2017-09-07] MEDS: INSULIN GLARGINE, 100 UNIT/ML CARTRIDGE SQ SCH (22:00)
--- NOTE | 2017-09-07 23:15 | NUR ---
RECORDS MANAGEMENT ENGINEER NOTES PT TRANSFERRED TO ROOM 118-2 TELE WITH TRANSPORT MONITOR. ALL PATIENT BELONGINGS TRANSFERRED. NO DISTRESS NOTED. REPORT GIVEN TO HENOK ORTIZ.
--- NOTE | 2017-09-07 23:27 | NUR ---
[facility] RN NOTE RECEIVED PT FROM ICU, REPORT WAS RECEIVED FROM NURSE HICKS. PT IS A/O X 3, NO SOB, NO DISTRESS OR DISCOMFORT NOTED. DENIES PAIN. PT REFUSED WOUNDS CHECK ASSESSMENT, STATES "NURSE DID DRESSINGS TODAY LEAVE IT ALONE". PT ALSO REFUSED BED BATH. CALLED THE RT TO APPLY BIPAP. CIRA WITH MIDLINE INTACT AND PATENT. RT WRIST #20 G S/L INTACT AND PATENT. PT IS ANURIC. LT CHEST WALL WITH HD CATH. ON TELE A FIB CONTROLLED HR 84. REPOSITION HIM IN BED FOR SKIN MANAGEMENT. SIDE RAILS UP X 3 AND CALL LIGHT WITHIN REACH. VSS. CONTINUE TO MONITOR HIM. Addendum: 09/07/17 at 2338 by HENOK BERRIOS RN PT ON [facility] BED. O2 2L VIA N/C O2 SAT 97%. KEPT ALL EXT'S ELEVATED. PT HAS GENERALIZED EDEMA.
--- NOTE | 2017-09-07 23:39 | NUR ---
[facility] RN NOTE RT APPLIED THE BIPAP ON PT. NO DISTRESS NOTED. PT FALLING ASLEEP.
[2017-09-08] VITALS: BP 108/54
[2017-09-08] MEDS: HYDROCODONE/APAP 5/325MG 1 EACH TABLET PO PRN ×2 (02:43→18:47)
--- NOTE | 2017-09-08 02:43 | NUR ---
[facility] RN NOTE PT WOKE UP AND C/O PAIN IN LOWER BACK 01/26, NORCO 5/325 MG PO GIVEN. ALSO REPOSITION HIM FOR COMFORT.
[2017-09-08] MEDS: IPRATROPIUM NEB FS 0.5 MG/2.5 ML AMPUL.NEB NEB SCH ×4 (03:40→17:31)
[2017-09-08] MEDS: ALBUTEROL HALF STRENGTH 1.25 MG/3 ML VIAL.NEB NEB SCH ×4 (03:40→17:31)
--- NOTE | 2017-09-08 03:43 | NUR ---
[facility] RN NOTE PAIN SUBSDIED 2/10. PT FALL ASLEEP, AROUSABLE. CONTNUE TO MONITOR HIM.
[2017-09-08 04:00] VITALS: BP 120/67
--- NOTE | 2017-09-08 06:27 | NUR ---
[facility] RN NOTE PT IN BED BIPAP OFF. CONTINUE ON O2 2L VIA N/C. NO DISTRESS OR DISCOMFORT NOTED, DENIES PAIN. ON TELE A FIB CONTROLLED HR 76. SIDE RAILS UP X 3 AND CALL LIGHT WITHN REACH. WILL ENDORSE TO DAY SHIFT NURSE FOR CONTINUE TO CARE.
[2017-09-08 07:12] LABS: BASOPHILS % (AUTO) 0.3 % (0.0-2.0); EOSINOPHILS # (AUTO) 0.2 /CMM (0.0-0.7); EOSINOPHILS % (AUTO) 2.6 % (0.0-6.0); HEMATOCRIT 29 % (39-51); HEMOGLOBIN 9.4 g/dL (13.5-17.5); LYMPHOCYTES # (AUTO) 0.8 /CMM (0.8-4.8); LYMPHOCYTES % (AUTO) 10.3 % (20.0-44.0); MEAN CORPUSCULAR HEMOGLOBIN 27 PG (26.0-33.0); MEAN CORPUSCULAR HGB CONC 33 g/dl (31.0-36.0); MEAN CORPUSCULAR VOLUME 83 fL (80-96); MONOCYTES # (AUTO) 0.7 /CMM (0.1-1.30); MONOCYTES % (AUTO) 8.9 % (2.0-12.0); NEUTROPHILS % (AUTO) 77.9 % (43.0-81.0); PLATELET COUNT (AUTO) 86 /CMM (150-450); RDW COEFFICIENT OF VARIATION 18.9 (11.5-15.0); RED BLOOD CELL COUNT(AUTO) 3.43 MIL/uL (4.5-6.0); WHITE BLOOD COUNT (AUTO) 7.7 K/uL (4.3-11.0)
[2017-09-08 07:31] LABS: CALCIUM, SERUM 7.6 mg/dL (8.5-10.1); CARBON DIOXIDE 26 mmol/L (21-32); CHLORIDE 100 mmol/L (98-107); CREATININE 4.4 mg/dL (0.6-1.3); GLUCOSE 107 mg/dL (74-106); MAGNESIUM 1.9 mg/dL (1.8-2.4); PHOSPHORUS 4.8 mg/dL (2.5-4.9); POTASSIUM 4.3 mmol/L (3.5-5.1); SODIUM SERUM 136 mmol/L (136-145); UREA NITROGEN, BLOOD 76 mg/dL (7-18)
[2017-09-08] MEDS: BLOOD SUGAR DIAGNOSTIC 1 EACH STRIP IN SCH ×3 (07:40→17:40)
[2017-09-08 08:00] VITALS: BP 110/44
[2017-09-08] MEDS: RENAL NOVASOURCE (8OZ) 1 EA BOX PO SCH ×3 (08:00→17:00)
[2017-09-08] MEDS: PANTOPRAZOLE 40 MG TABLET.DR PO SCH (08:17)
[2017-09-08] MEDS: FERROUS SULFATE (325 MG) 325 MG/TAB TABLET PO SCH (08:18)
[2017-09-08] MEDS: APIXABAN 2.5 MG TABLET PO SCH (08:18)
[2017-09-08] MEDS: LACTOBACILLUS RHAMNOSUS GG 1 EACH CAP.SPRINK PO SCH ×2 (08:18→17:40)
[2017-09-08] MEDS: AMIODARONE HCL 200 MG TABLET PO SCH ×3 (08:18→17:40)
[2017-09-08] MEDS: GABAPENTIN 300 MG CAPSULE PO SCH ×2 (08:19→17:40)
[2017-09-08] MEDS: LIDOCAINE 5% (PATCH) 1 EA PATCH TP SCH (08:19)
[2017-09-08] MEDS: Z GUARD REMEDY 2 OZ OINT TP SCH (08:21)
[2017-09-08] MEDS: NYSTATIN TOP POWDER 15 GM BOTTLE TP SCH (08:22)
[2017-09-08] MEDS: CADEXOMER IODINE 40 GM TUBE TP SCH (08:23)
[2017-09-08] MEDS: CITRIC ACID/SODIUM CITRATE (BICITRA)15 ML UDC PO SCH ×2 (08:24→17:00)
[2017-09-08] MEDS: INSULIN LISPRO/ASPART 100 UNIT/ML CARTRIDGE SQ SCH ×2 (08:30→17:48)
--- NOTE | 2017-09-08 09:00 | NUR ---
[facility] RN NOTE PT REFUSING RENAL BOX WELL CITRIC ACID PO LIQUID PT REQUESTING PILL FORM. CALLED PHARMACY NO REPLACEMENT FOR PILL FORM. WILL INFORM TYE SEXTON N.P.
[2017-09-08 10:00] LABS: LYMPHOCYTES % (MANUAL) 10 % (16-48); NEUTROPHILS % (MANUAL) 77 (42-76)
[2017-09-08 10:01] LABS: EOSINOPHILS % (MANUAL) 3 % (0-4); MONOCYTES % (MANUAL) 7 % (0-11.0)
[2017-09-08 12:00] VITALS: BP 108/36
[2017-09-08] MEDS: INSULIN REGULAR, HUMAN 100 UNIT/ML 3 ML VIAL SQ PRN ×2 (12:17→17:47)
[2017-09-08 16:00] VITALS: BP 94/35
[2017-09-08 17:40] VITALS: BP 94/35
--- NOTE | 2017-09-08 18:59 | NUR ---
TELE DC NOTE PT DC TO [employer] REPORT GIVEN TO TONI BARRIENTOS @ 1800. PT DC ID BAND AND IV. PT CLEAN AND DRY. ALL MEDICATIONS GIVEN. ALL ORDERS CARRIED OUT. REPORT GIVEN TO EMT. PHOTOS TAKEN AND PUT IN CHART. PT LEFT VIA AMBULANCE PT STABLE. DC INSTRUCTION SIGNED BY PT.
== END 2017-09-08 19:15 | DRG 853 ==
LOC: ER 18:18 → TELE 20:18 → MED 08-31 22:05 → ICU 09-02 14:42 → TELE-TD 09-07 23:16 → TELE1 09-08 13:06
PROVIDERS: ADMIT Internal Medicine; ATTEND Internal Medicine
PROC: 0JBP0ZZ Excision of Left Lower Leg Subcutaneous Tissue and Fascia, Open Approach (ICD-10-PCS; principal; 2017-08-31)
PROC: 0JBN0ZZ Excision of Right Lower Leg Subcutaneous Tissue and Fascia, Open Approach (ICD-10-PCS; 2017-08-31)
PROC: 5A1D70Z Performance of Urinary Filtration, Intermittent, Less than 6 Hours Per Day (ICD-10-PCS; 2017-09-01)
PROC: 5A1D70Z Performance of Urinary Filtration, Intermittent, Less than 6 Hours Per Day (ICD-10-PCS; 2017-09-02)
PROC: 5A09357 Assistance with Respiratory Ventilation, Less than 24 Consecutive Hours, Continuous Positive Airway Pressure (ICD-10-PCS; 2017-09-02)
PROC: 05H533Z Insertion of Infusion Device into Right Subclavian Vein, Percutaneous Approach (ICD-10-PCS; 2017-09-03)
PROC: 5A1D70Z Performance of Urinary Filtration, Intermittent, Less than 6 Hours Per Day (ICD-10-PCS; 2017-09-03)
PROC: 5A1D70Z Performance of Urinary Filtration, Intermittent, Less than 6 Hours Per Day (ICD-10-PCS; 2017-09-04)
PROC: 5A09357 Assistance with Respiratory Ventilation, Less than 24 Consecutive Hours, Continuous Positive Airway Pressure (ICD-10-PCS; 2017-09-04)
PROC: 5A1D70Z Performance of Urinary Filtration, Intermittent, Less than 6 Hours Per Day (ICD-10-PCS; 2017-09-06)
PROC: 5A09357 Assistance with Respiratory Ventilation, Less than 24 Consecutive Hours, Continuous Positive Airway Pressure (ICD-10-PCS; 2017-09-06)
PROC: 5A1D70Z Performance of Urinary Filtration, Intermittent, Less than 6 Hours Per Day (ICD-10-PCS; 2017-09-08)
DX: A40.1 Sepsis due to streptococcus, group B (principal); J96.21 Acute and chronic respiratory failure with hypoxia; J69.0 Pneumonitis due to inhalation of food and vomit; E43 Unspecified severe protein-calorie malnutrition; J15.6 Pneumonia due to other Gram-negative bacteria; G92 Toxic encephalopathy; I13.2 Hypertensive heart and chronic kidney disease with heart failure and with stage 5 chronic kidney disease, or end stage renal disease; D68.59 Other primary thrombophilia; E11.22 Type 2 diabetes mellitus with diabetic chronic kidney disease; I50.33 Acute on chronic diastolic (congestive) heart failure; R53.2 Functional quadriplegia; N18.6 End stage renal disease; J96.22 Acute and chronic respiratory failure with hypercapnia; J15.9 Unspecified bacterial pneumonia; L89.893 Pressure ulcer of other site, stage 3; D61.818 Other pancytopenia; E66.2 Morbid (severe) obesity with alveolar hypoventilation; L03.115 Cellulitis of right lower limb; Z68.42 Body mass index [BMI] 45.0-49.9, adult; L97.219 Non-pressure chronic ulcer of right calf with unspecified severity; L97.229 Non-pressure chronic ulcer of left calf with unspecified severity; E11.42 Type 2 diabetes mellitus with diabetic polyneuropathy; E11.51 Type 2 diabetes mellitus with diabetic peripheral angiopathy without gangrene; E11.622 Type 2 diabetes mellitus with other skin ulcer; I48.91 Unspecified atrial fibrillation; I25.10 Atherosclerotic heart disease of native coronary artery without angina pectoris; K21.9 Gastro-esophageal reflux disease without esophagitis; E11.65 Type 2 diabetes mellitus with hyperglycemia; D63.8 Anemia in other chronic diseases classified elsewhere; E78.5 Hyperlipidemia, unspecified; F32.9 Major depressive disorder, single episode, unspecified; G89.4 Chronic pain syndrome; I48.0 Paroxysmal atrial fibrillation; I87.2 Venous insufficiency (chronic) (peripheral); L30.4 Erythema intertrigo; Z99.81 Dependence on supplemental oxygen; Z96.651 Presence of right artificial knee joint; Z99.2 Dependence on renal dialysis; G47.33 Obstructive sleep apnea (adult) (pediatric); E83.9 Disorder of mineral metabolism, unspecified; L98.8 Other specified disorders of the skin and subcutaneous tissue; S51.811A Laceration without foreign body of right forearm, initial encounter; X58.XXXA Exposure to other specified factors, initial encounter; Y93.9 Activity, unspecified; Y92.129 Unspecified place in nursing home as the place of occurrence of the external cause; L89.890 Pressure ulcer of other site, unstageable; G31.84 Mild cognitive impairment of uncertain or unknown etiology; Z89.412 Acquired absence of left great toe; Z87.891 Personal history of nicotine dependence; L89.610 Pressure ulcer of right heel, unstageable; M85.88 Other specified disorders of bone density and structure, other site; M25.561 Pain in right knee; S89.81XA Other specified injuries of right lower leg, initial encounter; Z79.4 Long term (current) use of insulin; D69.59 Other secondary thrombocytopenia; Z71.3 Dietary counseling and surveillance; I44.7 Left bundle-branch block, unspecified; R04.0 Epistaxis; Z79.01 Long term (current) use of anticoagulants
CPT/HCPCS: 31720; 36415; 36569; 36600; 71045-TC; 73560-TC; 80048-TC; 80053-TC; 80061-TC; 80076-TC; 80202-TC; 81000-TC; 82728-TC; 82746; 82803-TC; 82962-TC; 83540-TC; 83605-TC; 83735-TC; 83880; 84100-TC; 84443-TC; 84484-TC; 85025-TC; 85396; 85610-TC; 85730-TC; 87040-TC; 87081-TC; 87086-TC; 87186-TC; 87400; 90935-TC; 93307-TC; 93971-TC; 94660; 94760-TC; 94762-TC; 94799-TC; A4216; A4606; A6248; A6253; A6402; A6403; J1815; J1956; J2185; J2543; J3370; J3475; J7030; J7040; J7060; P9047; Z7610